=== PATIENT | female | born 1980 | race Caucasian/White ===

== ENCOUNTER 2020-05-22 14:13 | Observation (INO) | payer OTHER ==
[~2020-05-22] VITALS: Ht 162.6 cm; Wt 70.5 kg
--- OUTSIDE RECORDS SUMMARY | ~2020-05-22 | XMS | Encounter Summary ---
Demographics + + + | Address | [address] | | | [place] [address] | + + + | Home Phone | | + + + | Preferred Language | Unknown | + + + | Marital Status | Unknown | + + + | Taoist Affiliation | Unknown | + + + | Race | White | + + + | Ethnic Group | Unknown | + + + Author + + + | Author | Merged With [facility] | | | and [facility] | + + + | Organization | Merged With [facility] | | | and [place] | + + + | Address | Unknown | + + + | Phone | Unavailable | + + + Care Team Providers + +------+ + | Care Wax Cutter Name | Role | Phone | + +------+ + | Venus Bond | PCP | | + +------+ + Encounter Details +--------+ + + + + | Date | Type | Department | Care Team | Description | +--------+ + + + + | 01/18/ | Orders Only | [facility] | Conversion | | | 2012 | | CONVERSION [address] | Transaction, | | | | | [address] | Provider Unknown | | | | | [place], [place] | [phone] | | | | | [address] | | | | | | [phone] | | | +--------+ + + + + Social History + +-------+ +--------+------+ | Tobacco Use | Types | Packs/Day | Years | Date | | | | | Used | | + +-------+ +--------+------+ | Never Assessed | | | | | + +-------+ +--------+------+ + + + | Sex Assigned at | Date Recorded | | | | + + + | Not on file | | + + + documented as of this encounter Plan of Treatment Not on filedocumented as of this encounter Visit Diagnoses Not on filedocumented in this encounter"
--- OUTSIDE RECORDS SUMMARY | ~2020-05-22 | XMS | Encounter Summary ---
Demographics + + + | Address | [address] | | | [place] [address] | + + + | Home Phone | | + + + | Preferred Language | Unknown | + + + | Marital Status | Unknown | + + + | Confucianist Affiliation | Unknown | + + + | Race | White | + + + | Ethnic Group | Unknown | + + + Author + + + | Author | [facility] | | | and [facility] | + + + | Organization | [facility] | | | and [place] | + + + | Address | Unknown | + + + | Phone | Unavailable | + + + Care Team Providers + +------+ + | Care Rn Perinatal Name | Role | Phone | + +------+ + PCP | Unavailable | + +------+ + Encounter Details +--------+ + + + + | Date | Type | Department | Care Team | Description | +--------+ + + + + | 06/16/ | [facility] | [facility] | Dhruv Horan | | | 2000 | Encounter | [facility] | Shlomo [phone] | | | | | AND DELIVERY [address] | (Fax) | | | | | [address] | | | | | | [place], [place] | | | | | | [address] | | | | | | [phone] | | | +--------+ + + + [...]
--- OUTSIDE RECORDS SUMMARY | ~2020-05-22 | XMS | Encounter Summary ---
Demographics + + + | Address | [address] | | | [place] [address] | + + + | Home Phone | | + + + | Preferred Language | Unknown | + + + | Marital Status | | + + + | Taoist Affiliation | CHR | + + + | Race | White | + + + | Ethnic Group | Not or | + + + Author + + + | Author | [facility] | + + + | Organization | [facility] | + + + | Address | Unknown | + + + | Phone | Unavailable | + + + Support + + +---------+ + | Name | Relationship | Address | Phone | + + +---------+ + | Hans Grissom | ECON | Unknown | | + + +---------+ + Care Team Providers + +------+ + | Care Dj Instructor Name | Role | Phone | + +------+ + | Bebeto White MD | PCP | | + +------+ + Encounter Details +--------+ + + + + | Date | Type | Department | Care Team | Description | +--------+ + + + + | 10/15/ | Ancillary | Registration [id number] | [place], | | | 2004 | Registratio | [facility] | [address] | | | | n | Dario Mailcode: [id number] | [place], [place] | | | | | [place], [place] | [address] | | | | | [address] | | | | | | [phone] | | | +--------+ + + + [...] Not on filedocumented as of this encounter Procedures + +--------+ + + + | Procedure Name | Priori | Date/Time | Associated Diagnosis | Comments | | | ty | | | | + +--------+ + + + | ACTH, PLASMA | Routin | 10/15/2004 | | Results for this | | | e | 12:12 PM | | procedure are in the | | | | PST | | results section. | + +--------+ + + + | BASIC METABOLIC SET | Routin | 10/15/2004 | | Results for this | | (NA, K, CL, TCO2, | e | 12:12 PM | | procedure are in the | | BUN, CR, GLU, CA) | | PST | | results section. | + +--------+ + + + | INSULIN GROWTH | Routin | 10/15/2004 | | Results for this | | FACTOR-1, SERUM | e | 12:12 PM | | procedure are in the | | | | PST | | results section. | + +--------+ + + + | FREE T4 | Routin | 10/15/2004 | | Results for this | | | e | 12:12 PM | | procedure are in the | | | | PST | | results section. | + +--------+ + + + | PROLACTIN | Routin | 10/15/2004 | | Results for this | | | e | 12:12 PM | | procedure are in the | | | | PST | | results section. | + +--------+ + + + | TSH | Routin | 10/15/2004 | | Results for this | | | e | 12:12 PM | | procedure are in the | | | | PST | | results section. | + +--------+ + + + | LUTEINIZING HORMONE, | Routin | 10/15/2004 | | Results for this | | SERUM | e | 12:12 PM | | procedure are in the | | | | PST | | results section. | + +--------+ + + + | FSH, SERUM | Routin | 10/15/2004 | | Results for this | | | e | 12:12 PM | | procedure are in the | | | | PST | | results section. | + +--------+ + + + | CORTISOL, SERUM | Routin | 10/15/2004 | | Results for this | | | e | 12:12 PM | | procedure are in the | | | | PST | | results section. | + +--------+ + + + | ACTH, PLASMA | Routin | 10/15/2004 | | Results for this | | | e | 11:57 AM | | procedure are in the | | | | PST | | results section. | + +--------+ + + + | INSULIN GROWTH | Routin | 10/15/2004 | | Results for this | | FACTOR-1, SERUM | e | 11:57 AM | | procedure are in the | | | | PST | | results section. | + +--------+ + + + | FREE T4 | Routin | 10/15/2004 | | Results for this | | | e | 11:57 AM | | procedure are in the | | | | PST | | results section. | + +--------+ + + + | PROLACTIN | Routin | 10/15/2004 | | Results for this | | | e | 11:57 AM | | procedure are in the | | | | PST | | results section. | + +--------+ + + + | TSH | Routin | 10/15/2004 | | Results for this | | | e | 11:57 AM | | procedure are in the | | | | PST | | results section. | + +--------+ + + + | LUTEINIZING HORMONE, | Routin | 10/15/2004 | | Results for this | | SERUM | e | 11:57 AM | | procedure are in the | | | | PST | | results section. | + +--------+ + + + | FSH, SERUM | Routin | 10/15/2004 | | Results for this | | | e | 11:57 AM | | procedure are in the | | | | PST | | results section. | + +--------+ + + + | CORTISOL, SERUM | Routin | 10/15/2004 | | Results for this | | | e | 11:57 AM | | procedure are in the | | | | PST | | results section. | + +--------+ + + + | PROLACTIN | Routin | 10/15/2004 | | Results for this | | | e | 11:55 AM | | procedure are in the | | | | PST | | results section. | + +--------+ + + + documented in this encounter Results TSH-THYROID STIM HORMONE (10/15/2004 12:12 PM PST) + + + + + + | Component | Value | Ref Range | Performed | Pathologist | | | | | At | Signature | + + + + + + | TSH | 0.22 (L)Comment: Test | 0.28 - 5.00 | | | | | performed by [facility] | uIU/ml | | | | | [facility] | | | | | | Laboratories. | | | | + + + + + + + + | Specimen | + + | | + + + + + + + | Performing | Address | City/State/Zipcode | Phone Number | | Organization | | | | + + + + + | [facility] | [address] | [place] [address] | | | LABORATORY | | | | + + + + + PROLACTIN (10/15/2004 12:12 PM PST) + + + + + + | Component | Value | Ref Range | Performed | Pathologist | | | | | At | Signature | + + + + + + | PROLACTIN | 11Comment: Test | 3 - 29 ng/ml | | | | | performed by [facility] | | | | | | [facility] | | | | | | Labaoratory. | | | | + + + + + + + + | Specimen | + + | | + + + + + + + | Performing | Address | City/State/Zipcode | Phone Number | | Organization | | | | + + + + + | [facility] | [address] | [place] [address] | | | LABORATORY | | | | + + + + + LUTEINIZING HORMONE (10/15/2004 12:12 PM PST) + + + + + + | Component | Value | Ref Range | Performed | Pathologist | | | | | At | Signature | + + + + + + | LUTEINIZING | 2Comment: LH | mIU/mL | | | | | Normals | | | | | HORMONE,SER | Males <11 | | | | | UM | Females | | | | | | Follicular | | | | | | <19 | | | | | | Mid-cycle 15-80 | | | | | | Luteal | | | | | | <19 | | | | | | Post-Epifanio. 16-64 | | | | | | Test performed by | | | | | | [facility] | | | | | | [facility]. | | | | + + + + + + + + | Specimen | + + | | + + + + + + + | Performing | Address | City/State/Zipcode | Phone Number | | Organization | | | | + + + + + | [facility] | [address] | [place] [address] | | | LABORATORY | | | | + + + + + IGF-1 (10/15/2004 12:12 PM PST) + + + + + + | Component | Value | Ref Range | Performed | Pathologist | | | | | At | Signature | + + + + + + | IGF-1 | 297Comment: Test | 114 - 492 ng/mL | | | | | performed by [facility] | | | | | | [facility] | | | | | | Laboratories. | | | | + + + + + + + + | Specimen | + + | | + + + + + + + | Performing | Address | City/State/Zipcode | Phone Number | | Organization | | | | + + + + + | [facility] | [address] | [place] [address] | | | LABORATORY | | | | + + + + + CORTISOL, SERUM (10/15/2004 12:12 PM PST) + +-------+ + + + | Component | Value | Ref Range | Performed | Pathologist | | | | | At | Signature | + +-------+ + + + | CORTISOL, | 5 | 5 - 23 ug/dl | | | | TOTAL SERUM | | | | | + +-------+ + + + + + | Specimen | + + | | + + + + + | Narrative | Performed At | + + + | Cortisol Reference Ranges | | | AM Reference Range: 8 - 23 ug/dl | | | PM Reference Range: Less than 10 ug/dl | | + + + + + + + + | Performing | Address | City/State/Zipcode | Phone Number | | Organization | | | | + + + + + | [facility] | [address] | [place] [address] | | | LABORATORY | | | | + + + + + FSH, SERUM (10/15/2004 12:12 PM PST) + + + + + + | Component | Value | Ref Range | Performed | Pathologist | | | | | At | Signature | + + + + + + | FSH,SERUM | 2Comment: | mIU/mL | | | | | FSH Normals: | | | | | | Males: | | | | | | <18 | | | | | | Females | | | | | | Follicular: 2-12 | | | | | | | | | | | | Mid-cycle: 3-33 | | | | | | Luteal: | | | | | | 2-12 | | | | | | Post.epifanio: >20 | | | | | | Test performed by | | | | | | [facility] | | | | | [facility]. | | | | + + + + + + + + | Specimen | + + | | + + + + + + + | Performing | Address | City/State/Zipcode | Phone Number | | Organization | | | | + + + + + | [facility] | [address] | [place] [address] | | | LABORATORY | | | | + + + + + FREE T4, SERUM (10/15/2004 12:12 PM PST) + + + + + + | Component | Value | Ref Range | Performed | Pathologist | | | | | At | Signature | + + + + + + | FREE T4, | 0.9Comment: Test | 0.7 - 1.8 ng/dL | | | | SERUM | performed by [facility] | | | | | | [facility] | | | | | | [facility]. | | | | + + + + + + + + | Specimen | + + | | + + + + + + + | Performing | Address | City/State/Zipcode | Phone Number | | Organization | | | | + + + + + | [facility] | [address] | [place] [address] | | | LABORATORY | | | | + + + + + ACTH (10/15/2004 12:12 PM PST) + + + + + + | Component | Value | Ref Range | Performed | Pathologist | | | | | At | Signature | + + + + + + | ACTH,PLASMA | 9Comment: Test | 9 - 52 pg/mL | | | | | performed by [facility] | | | | | | [facility] | | | | | | Laboratories. | | | | + + + + + + + + | Specimen | + + | | + + + + + + + | Performing | Address | City/State/Zipcode | Phone Number | | Organization | | | | + + + + + | [facility] | [address] | [place] [address] | | | LABORATORY | | | | + + + + + BASIC METABOLIC SET (10/15/2004 12:12 PM PST) + +-------+ + + + | Component | Value | Ref Range | Performed | Pathologist | | | | | At | Signature | + +-------+ + + + | GLUCOSE, | 89 | 65 - 110 mg/dL | [facility] | | | PLASMA | | | DEPARTMENT | | | (LAB) | | | OF | | | | | | PATHOLOGY | | + +-------+ + + + | BUN, PLASMA | 8 | 6 - 20 mg/dL | [facility] | | | (LAB) | | | DEPARTMENT | | | | | | OF | | | | | | PATHOLOGY | | + +-------+ + + + | CREATININE | 0.8 | 0.6 - 1.1 mg/dL | [facility] | | | PLASMA | | | DEPARTMENT | | | (LAB) | | | OF | | | | | | PATHOLOGY | | + +-------+ + + + | SODIUM, | 139 | 136 - 145 | [facility] | | | PLASMA | | mmol/L | DEPARTMENT | | | (LAB) | | | OF | | | | | | PATHOLOGY | | + +-------+ + + + | POTASSIUM, | 3.9 | 3.5 - 5.1 | [facility] | | | PLASMA | | mmol/L | DEPARTMENT | | | (LAB) | | | OF | | | | | | PATHOLOGY | | + +-------+ + + + | CHLORIDE, | 104 | 98 - 107 mmol/L | [facility] | | | PLASMA | | | DEPARTMENT | | | (LAB) | | | OF | | | | | | PATHOLOGY | | + +-------+ + + + | TOTAL CO2, | 27 | 23 - 29 mmol/L | [facility] | | | PLASMA | | | DEPARTMENT | | | (LAB) | | | OF | | | | | | PATHOLOGY | | + +-------+ + + + | CALCIUM, | 9.7 | 8.5 - 10.5 | [facility] | | | PLASMA | | mg/dL | DEPARTMENT | | | (LAB) | | | OF | | | | | | PATHOLOGY | | + +-------+ + + + + + | Specimen | + + | | + + + + + + + | Performing | Address | City/State/Zipcode | Phone Number | | Organization | | | | + + + + + | [facility] DEPARTMENT OF | [address] | [place] [address] | | | PATHOLOGY | [address] | | | + + + + + | [facility] DEPARTMENT OF | [address] | [place] [address] | | | PATHOLOGY | [address] | | | + + + + + FSH, SERUM (10/15/2004 11:57 AM PST) + + + + + + | Component | Value | Ref Range | Performed | Pathologist | | | | | At | Signature | + + + + + + | FSH,SERUM | See cmnt | mIU/mL | | | + + + + + + + + | Specimen | + + | | + + + + + | Narrative | Performed At | + + + | Patient unavailable, specimen not obtained | | + + + + + + + + | Performing | Address | City/State/Zipcode | Phone Number | | Organization | | | | + + + + + | [facility] | [address] | [place] [address] | | | LABORATORY | | | | + + + + + FREE T4, SERUM (10/15/2004 11:57 AM PST) + + + + + + | Component | Value | Ref Range | Performed | Pathologist | | | | | At | Signature | + + + + + + | FREE T4, | See cmnt | ng/dL | | | | SERUM | | | | | + + + + + + + + | Specimen | + + | | + + + + + | Narrative | Performed At | + + + | Patient unavailable, specimen not obtained | | + + + + + + + + | Performing | Address | City/State/Zipcode | Phone Number | | Organization | | | | + + + + + | [facility] | [address] | [place] [address] | | | LABORATORY | | | | + + + + + CORTISOL, SERUM (10/15/2004 11:57 AM PST) + + + + + + | Component | Value | Ref Range | Performed | Pathologist | | | | | At | Signature | + + + + + + | CORTISOL, | See cmnt | ug/dl | | | | TOTAL SERUM | | | | | + + + + + + | TIME | See cmnt | Hrs:mins | | | + + + + + + | SITE | See cmnt | | | | + + + + + + + + | Specimen | + + | | + + + + + | Narrative | Performed At | + + + | Patient unavailable, specimen not obtained | | + + + + + + + + | Performing | Address | City/State/Zipcode | Phone Number | | Organization | | | | + + + + + | [facility] | [address] | [place] [address] | | | LABORATORY | | | | + + + + + IGF-1 (10/15/2004 11:57 AM PST) + + + + + + | Component | Value | Ref Range | Performed | Pathologist | | | | | At | Signature | + + + + + + | IGF-1 | See cmnt | ng/mL | | | + + + + + + + + | Specimen | + + | | + + + + + | Narrative | Performed At | + + + | Patient unavailable, specimen not obtained | | + + + + + + + + | Performing | Address | City/State/Zipcode | Phone Number | | Organization | | | | + + + + + | [facility] | [address] | [place] [address] | | | LABORATORY | | | | + + + + + ACTH (10/15/2004 11:57 AM PST) + + + + + + | Component | Value | Ref Range | Performed | Pathologist | | | | | At | Signature | + + + + + + | ACTH,PLASMA | See cmnt | pg/mL | | | + + + + + + | TIME | See cmnt | Hrs:mins | | | + + + + + + | SITE | See cmnt | | | | + + + + + + + + | Specimen | + + | | + + + + + | Narrative | Performed At | + + + | Patient unavailable, specimen not obtained | | + + + + + + + + | Performing | Address | City/State/Zipcode | Phone Number | | Organization | | | | + + + + + | [facility] | [address] | [place] [address] | | | LABORATORY | | | | + + + + + TSH-THYROID STIM HORMONE (10/15/2004 11:57 AM PST) + + + + + + | Component | Value | Ref Range | Performed | Pathologist | | | | | At | Signature | + + + + + + | TSH | See cmnt | uIU/ml | | | + + + + + + + + | Specimen | + + | | + + + + + | Narrative | Performed At | + + + | Patient unavailable, specimen not obtained | | + + + + + + + + | Performing | Address | City/State/Zipcode | Phone Number | | Organization | | | | + + + + + | [facility] | [address] | [place] [address] | | | LABORATORY | | | | + + + + + PROLACTIN (10/15/2004 11:57 AM PST) + + + + + + | Component | Value | Ref Range | Performed | Pathologist | | | | | At | Signature | + + + + + + | PROLACTIN | See cmnt | ng/ml | | | + + + + + + + + | Specimen | + + | | + + + + + | Narrative | Performed At | + + + | Patient unavailable, specimen not obtained | | + + + + + + + + | Performing | Address | City/State/Zipcode | Phone Number | | Organization | | | | + + + + + | [facility] | [address] | [place] [address] | | | LABORATORY | | | | + + + + + LUTEINIZING HORMONE (10/15/2004 11:57 AM PST) + + + + + + | Component | Value | Ref Range | Performed | Pathologist | | | | | At | Signature | + + + + + + | LUTEINIZING | See cmnt | mIU/mL | | | | | | | | | | HORMONE,SER | | | | | | [facility] | | | | | + + + + + + + + | Specimen | + + | | + + + + + | Narrative | Performed At | + + + | Patient unavailable, specimen not obtained | | + + + + + + + + | Performing | Address | City/State/Zipcode | Phone Number | | Organization | | | | + + + + + | [facility] | [address] | [place] [address] | | | LABORATORY | | | | + + + + + PROLACTIN (10/15/2004 11:55 AM PST) + + + + + + | Component | Value | Ref Range | Performed | Pathologist | | | | | At | Signature | + + + + + + | PROLACTIN | 11Comment: Test | 3 - 29 ng/ml | | | | | performed by [facility] | | | | | | [facility] | | | | | | Labaoratory. | | | | + + + + + + + + | Specimen | + + | | + + + + + + + | Performing | Address | City/State/Zipcode | Phone Number | | Organization | | | | + + + + + | [facility] | [address] | [place] [address] | | | LABORATORY | | | | + + + + + documented in this encounter Visit Diagnoses Not on filedocumented in this encounter"
--- OUTSIDE RECORDS SUMMARY | ~2020-05-22 | XMS | Encounter Summary ---
Demographics + + + | Address | [address] | | | [place] [address] | + + + | Home Phone | | + + + | Preferred Language | Unknown | + + + | Marital Status | | + + + | Roman Catholic Affiliation | CHR | + + + | Race | White | + + + | Ethnic Group | Not or | + + + Author + + + | Author | [facility] | + + + | Organization | [facility] | + + + | Address | Unknown | + + + | Phone | Unavailable | + + + Support + + +---------+ + | Name | Relationship | Address | Phone | + + +---------+ + | Hans Grissom | ECON | Unknown | | + + +---------+ + Care Team Providers + +------+ + | Care Human Factors Engineer Name | Role | Phone | + +------+ + | Bebeto White MD | PCP | | + +------+ + Reason for Visit AUTH/CERT +--------+--------+ + + + + | Status | Reason | Specialty | Diagnoses / | Referred By | Referred To | | | | | Procedures | Contact | Contact | +--------+--------+ + + + + | Closed | | Adult Acute | | | Kpv 10k | | | | Care | | | Nsrg/Neur/Ot | | | | | | | [address] | | | | | | | [address] | | | | | | | [id number] | | | | | | | [facility] | | | | | | | [place], | | | | | | | [place] [address] | | | | | | | Phone: | | | | | | | [phone] | +--------+--------+ + + + + Encounter Details +--------+ + + + + | Date | Type | Department | Care Team | Description | +--------+ + + + + | 01/14/ | Hospital | [facility] [address] | Ashleigh Negrete, | | | 2010 - | Encounter | [address] | [address] [facility] | | | | | [id number] [facility] | [address] | | | 01/15/ | | [facility], | [place], [place] | | | 2010 | | [place] [address] | [address] | | | | | [phone] | [phone] | | | | | | | | +--------+ + + + + Social History + +-------+ +--------+------+ | Tobacco Use | Types | Packs/Day | Years | Date | | | | | Used | | + +-------+ +--------+------+ | Never Smoker | | | | | + +-------+ +--------+------+ + +---+---+---+ | Smokeless Tobacco: | | | | | Never Used | | | | + +---+---+---+ + + +---------+ + | Alcohol Use | Drinks/Week | oz/Week | Comments | + + +---------+ + | No | | | | + + +---------+ + + + + | Sex Assigned at | Date Recorded | | | | + + + | Not on file | | + + + documented as of this encounter Last Filed Vital Signs + + + + + | Vital Sign | Reading | Time Taken | Comments | + + + + + | Blood Pressure | 140/86 | 01/15/2011 11:14 AM | | | | | PDT | | + + + + + | Pulse | 88 | 01/15/2011 11:14 AM | | | | | PDT | | + + + + + | Temperature | 37 C (98.6 F) | 01/15/2011 11:14 AM | | | | | PDT | | + + + + + | Respiratory Rate | 16 | 01/15/2011 11:14 AM | | | | | PDT | | + + + + + | Oxygen Saturation | 98% | 01/15/2011 11:14 AM | | | | | PDT | | + + + + + | Inhaled Oxygen | - | - | | | Concentration | | | | + + + + + | Weight | 95.3 kg (210 lb) | 01/14/2011 1:00 PM | | | | | PDT | | + + + + + | Height | 162.6 cm (5' 4") | 01/14/2011 1:00 PM | | | | | PDT | | + + + + + | Body Mass Index | 36.05 | 01/14/2011 1:00 PM | | | | | PDT | | + + + + + documented in this encounter Discharge Summaries Walt Massey DDS, MD - 01/15/2011 12:19 PM PDTFormatting of this note might be diffe rent from the original. HEAD AND NECK SURGERY INPATIENT PROVIDER DISCHARGE SUMMARY & INSTRUCTIONS Patient: Shellie Grissom Admission Date: 01/14/2011 Discharge Date: 01/15/2011 Attending Physician: Dr. 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 Reason For Admission: Post operative pain and nausea control Hypocalcemia monitoring Brief Hospital Course Ms. Grissom is a 30 yr woman who was admitted for post operative care related to her thyroid ectomy for a toxic goiter. She did well and her pepito drain was removed on hospital day 2 . Her pain and nausea were controlled at the time of discharge. Her post operative PTH is 20. Morning corrected calcium is 9. Current Discharge Medication List START taking these medications HYDROcodone-acetaminophen 5-500 mg Oral Tablet Take 1-2 Tabs by mouth every four hours as needed for moderate pain. Not to exceed 8 table ts per any 24 hour period. (Not to exceed 4000 mg of acetaminophen from all products per 24 hour period.) Qty: 45 Tab Refills: 1 senna-docusate 8.6-50 mg Oral Tablet Take 1 Tab by mouth twice daily as needed. Qty: 30 Tab Refills: 3 CONTINUE these medications which have NOT CHANGED LORazepam 2 mg Oral Tablet Take 2 mg by mouth every four hours as needed. multivitamin Oral Tablet Take 1 Tab by mouth once daily. Wound Care DERMABOND SKIN ADHESIVE:You will have a purple/clear skin adhesive called Dermabond coverin g your incision. Do not scratch, rub, or pick at the adhesive - if you do the film may bec ome loose before the wound is fully healed. Do not go swimming or soak in water.Showering is okay - gently blot the wound dry with a soft towel afterward. Avoid prolonged exposure to sunlight or tanning lamps. The Dermabond will fall off on its own within approximately 2 weeks.DO NOT apply any ointments to the area until after the Dermabond has fallen off. Diet Regular Regular diet- There are no restrictions to your diet. You may eat or drink whatever you pr efer, though healthy food choices are recommended. Activity No activity restrictions Destination: Destination: Home Condition on Discharge Good Discharge Follow Up For an appointment in Otolaryngology (Head & Neck Surgery) with Dr. Negreet, please call: . You should be seen within 2 about weeks from surgery. You need to see your didactic instructor near your home with lab draws next week. Also, you ne ed to have a blood drawn to look at the calcium level tomorrow (01/16/11). Other Discharge Orders and Instructions For Extreme Emergencies: Call [phone] Special Instructions: Do not drink alcohol while taking narcotic pain medication Do not drive or operate heavy machinery while on pain medications HOME MEDICATIONS: Remember to start taking all your home medications as you were before this hospital stay. PAIN: Keeping pain under control will help you get better faster; remember, it is harder to relie ve pain once it starts. You may take the pain medication you were prescribed regularly for the first 24 hours. STOP taking the pain medication if: Your pain lessens and you don't feel you need it You have nausea, headache, severe constipation, or other intolerable side effects. Take the prescription pain medication ONLY as you feel necessary. You may switch to acetami nophen (Tylenol) immediately after surgery, and you may also begin taking ibuprofen 3 days f ollowing surgery. You may apply ice intermittently to the affected area for the first 24-48 hours; a bag of f rozen peas works very well to form around the area. CONSTIPATION: Taking prescription pain medication (Vicodin, Oxycodone, Dilaudid, Hydrocodone) may cause c onstipation; drink fluids, increase fruits and vegetables, and walk. Take the stool softener if you were prescribed one as you need it. You should also take an qvwc-mgj-lnkylij stool softener called Colace (Docusate sodium) or Miralax (polyethylene glycol). Follow the directions on the label. Call the Resident on-call at [phone] if you have any of the following urgent issues: Difficulty breathing or unusual shortness of breath Excessive bleeding Increased drainage from your wounds Fever greater than 101.5 degrees, chills, increased pain that is not relieved by pain medic ations Persistent nausea or vomiting For all other questions, non-urgent issues, or prescription refills, between 8:00am to 4:0 0pm, call the Head and Ne[facility] Surgery Clinic at . Vitals on Discharge: Ht 162.6 cm (5' 4")( < 3 %ile), Wt 95.255 kg (210 lbs)( < 3 %ile), BP 140/86, Pulse 88, Temperature 37 C (98.6 F), RR 16, SpO2 98%, BMI 36.05 kg/(m^2). Physical Exam: Gen - Alert, NAD HEENT - Incision is clean, dry and intact. Pepito is removed, minimal serous drainage is noted. No masses or hematoma. Voice is strong. No Chovstek's. Chest - Non-labored breathing on room air Extremities - well perfused Outstanding labs/studies: You will need a blood draw tomorrow for calcium near your house. Lab to call [facility] to [facility] at home. Final Surgical Pathology is pending at the time of discharge Discharged dispostion: Discharged to home. Date/Time Completed: 01/15/2011, 12:19 PM WALT MASSEY DDS, Surgery documented in this e ncounter Discharge Instructions Instructions Nusrat Vázquez RN - 01/15/2011INPATIENT NURSE ORDER FOR DISCHARGE AND INTERDISCIPLINARY INSTRUCTIONS DISCHARGE DATE: 01/15/2011 PATIENT EDUCATION: Patient given the following printed education materials Wound care and medication. Review with patient/family: Understanding of disease/injury/surgical repair Yes Signs/symptoms that they should report Yes Understanding of medications and side effects Yes Activity and diet instructions Yes Follow-up appointments Yes Any concerns/fears N/A Smoking Cessation Counseling/Information was given on admission. Additional Instructions: (ex: daily weights, wound care, tube feeding, trach care, CBG saige toring etc.) Personal Effects/Medications: Sent home with patient Discharged Via: Ambulatory Mode of Transportation: Car Accompanied by: Family/Responsible [employer] Company Name: (when applicable) Phone #: Discharge Nurse: Uy Vázquez Date: 01/15/2011 Discharge Time: 12:29 PM AttachmentsThe following attachments cannot be sent through Care Everywhere.Medication Advi sor 2010.3: Hydrocodone/Acetaminophen, OralFormerly [facility] 2010.3: Wound Closure and Wo und CareFormerly [facility] Advisor 2010.3: Hypocalcemiadocumented in this encounter Medications at Time of Discharge + + + +---------+ + + | Medication | Sig | Dispensed | Refills | Start | End Date | | | | | | Date | | + + + +---------+ + + | levothyroxine 150 | Take 1 Tab by mouth | 30 Tab | 3 | 01/16/20 | | | mcg Oral Tablet | once daily. | | | 11 | | + + + +---------+ + + | multivitamin Oral | Take 1 Tab by mouth | | 0 | | | | Tablet | once daily. | | | | | + + + +---------+ + + documented as of this encounter Progress Notes Jonah Elliott Md - 01/14/2011 8:51 PM PDTFormatting of this note might be different fr om the original. Otolaryngology Progress Note Date:01/14/2011 Hospital Day:0 Author; JONAH ELLIOTT MD Attending Physician: Ashleigh Negrete MD Interval Hx: doing well, some pain appropriate for postop dextrose 5%-lactated ringers IV, , Intravenous, CONTINUOUS HYDROcodone-acetaminophen (aka VICODIN) 5-500 mg 1-2 Tab, 1-2 Tab, Oral, Q4H PRN HYDROmorphone (aka DILAUDID) injection 0.2-0.6 mg, 0.2-0.6 mg, Intravenous, Q2H PRN levothyroxine tablet 150 mcg, 150 mcg, Oral, DAILY LORazepam (aka ATIVAN) tablet 2 mg, 2 mg, Oral, Q4H PRN Physical Exam: Last Vitals: BP 147/90 | Pulse 107 | Temp 36.4 C (97.5 F) | RR 16 | Ht 1.626 m (5' 4") | Wt 95.255 kg (210 lb) | SpO2 99% | BMI 36.05 kg/(m^2) 24 Hour Vital Min/Max: Systolic (24hrs), Min:141 mmHg, Max:166 mmHg Diastolic (24hrs), Min:71 mmHg, Max:107 mmHg Pulse Av.5 Min: 105 Max: 128 Temp Av.7 C (98.1 F) Min: 36.3 C (97.3 F) Max: 37.3 C (99.1 F) Resp Av.6 Min: 14 Max: 16 SpO2 Av.1 % Min: 96 % Max: 100 % Intake/Output Summary (Last 24 hours) at 01/14/112050 Last data filed at 01/14/111999 Gross per 24 hour Intake 2100 ml Output 0 ml Net 2100 ml General Appearance: no distress Breathing comfortably Incision clean/dry/intact, no erythema or hematoma. Pepito drain in place. CN II-XII intact and symmetric. Voice hoarse Assessment and Plan: 30 y.o.female s/p total thyroidectomy -doing well overall -continue pain control -ADAT -monitor hoarseness, at this point likely due to edema from ET tube Jonah Elliott MD PhD [facility] Dept. of Otolaryngology documented in this e ncounter H&P Notes Ashleigh Negrete MD - 01/17/2011 10:00 AM PDT documented in this encounter Procedure Notes Ashleigh Negrtee MD - 01/17/2011 10:00 AM PDT ther, Faculty - 0 01/15/2011 3:54 PM PDTAssociated Order(s): ANESTHESIA/SEDATION; ANESTHESIA/SEDATION Ashleigh Underwood MD - 0 01/14/2011 4:23 PM PDTAssociated Order(s): ANESTHESIA/SEDATION; ANESTHESIA/SEDATION Ashleigh Underwood MD - 01/14/2011 4:12 PM PDTAssociated Order(s): PROCEDURE NOTEOPERATIVE REPORT Patient Name: Shellie Grissom Date of Surgery: 01/14/11 Attending Surgeon: Dr. Negrete Music Therapist [employer](s): Amy Lira Preoperative Diagnosis(es): Toxic goiter, hyperthyroidism Postoperative Diagnosis(es): Same as preop diagnosis Procedures Performed: 1. Total thyroidectomy. 2. Continuous recurrent laryngeal nerve EMG monitoring (90 minutes) Complications:None. Estimated Blood Loss: 10 cc. Post-Op PTH: 20 Specimens: Total thyroid Procedure: The patient was intubated with a Xomed endotracheal tube for recurrent laryngeal nerve whic h was used continuously throughout the entire cervical procedure. The neck was prepped, scr ubbed, and draped with sterile towels. A low lying collar incision was made at the level of the sternoclavicular joints and extended laterally along the neck crease on each. Skin flap was elevated superiorly. The flaps were also elevated inferiorly down to the sternal notch. We started the thyroidectomy part first. The strap muscles were along the midlin e and dissected off the left thyroid lobe with a [place] elevator. The inferior thyroid veins were cauterized and divided with the harmonic scalpel on the thyroid capsule. The inferior parathyroid gland was identified, dissected off the thyroid capsule, and preserved. The mi ddle thyroid vein was then divided. Dissection continued along the superior pole where the distal end branches of the superior thyroid artery and veins were isolated and divided with the harmonic scalpel on the thyroid capsule. The thyroid lobe was then gently retracted, a nd the tracheoesophageal groove was exposed near the lower border of the cricothyroid muscle . The superior parathyroid gland was identified, dissected off, and preserved. Next, the r ecurrent laryngeal nerve was then identified and confirmed with the nerve stimulator probe s et at 0.5 mA. The nerve was then dissected inferiorly and laterally and then breakup superio rly and protected as the rest of the thyroid lobe was then dissected off the lateral trachea l wall, dividing the Villegas ligament. The rest of the thyroid lobe was then dissected off th e anterior tracheal wall including a long pyramidal lobe. The recurrent laryngeal nerve was re-stimulated with 0.5 milliamperes stimulus and we obtained a large motor unit potential. Attention was directed to the contralateral lobe which was removed in the same fashion, pre serving the inferior parathyroid gland and the superior parathyroid gland as well as the rec urrent laryngeal nerve. The entire thyroid gland was removed and labelled total thyroid. T he recurrent laryngeal nerve was re- stimulated at 0,5 milliamperes stimulus and a large mot or unit potential was obtained. The wound was irrigated copiously and inspected for hemostasis. The parathyroid glands that remained were re-examined and all 4 appeared viable. [place] drain was placed. After maykel ng sure the would was dry, the straps were closed with a running 4-0 polysorb, the skin was closed with running 4-0 polysorb platysmal layer closure and 4-0 Monocryl subcuticular closu re. Dermabond was applied over the incision. Sponge and needle counts were correct. Labelling of specimens removed were confirmed with nursing. The patient left the operating room extubated in stable condition. Dr. Negrete was present for the entire case. SANDOVAL GREGORY MD Attending Attestation: I was physically present for the entire procedure and agree with the resident's note Ashleigh Negrete M.D. Other, Faculty - 01/13/2011 3:14 PM PDT documented in this encou nter Miscellaneous Notes Scan - Other, Faculty - 11/16/2014 4:30 PM PDTElectronically signed by Faculty Other at 4:30 PM Ashleigh Solorzano MD - 01/17/2011 10:00 AM PDT Kenia Solorzano MD - 01/17/2011 10:00 AM PDT Kenia Solorzano MD - 01/17/2011 10:00 AM PDT Kenia Solorzano MD - 01/17/2011 10:00 AM PDT lan of Dotty Calles RN - 01/15/2011 12:34 PM PDTProblem: Case Management Goals Goal: Discharge Needs Met Patient admitted to [facility] s/p total thyroidectomy. Patient lives with in [place], [place], has [facility] insurance. No CM needs anticipated, will continue to follow until discharge. Annika Grace RN, BSN, ENT/Neuro Chief Power Dispatcher #[id number] lan of Nusrat Gillespie RN - 01/15/2011 10:59 AM PDTProblem: Pain, Acute (Adult) Goal: Acute Pain: Acceptable Pain Control/Comfort Level Interventions: Assess pain level every 2 hrs Administer pain med as ordered Encourage mobility Maintain environmental modification lan of Care - Maximilian Palomares R - 01/15/2011 6:13 AM PDTProblem: General Plan of Care (Adult) Intervention: NPEOC Acute Goals: No falls/injuries this NOC Adequate rest. Pain managed to pt comfort. Interventions: Environment free from clutter. Call light within reach. Discuss ambulation safety Encourage pt to rest. Discuss plan for pain. Vicodin x1 tab per pt request. No notes of Plan of Care type on file. Interventions that worked/didn't work: continue cares. Promote pt independence. My recommendations forward:Enforce pt safety. Patient Stability:Moderately Stable [facility] Maximilian Al R - 01/15/2011 6:00 AM PDTNursing Handoff Report Primary focus of stay: Total thyroidectomy. Pertinent physical findings: neck dissection, dsg on the anterior neck, pepito under dress ing. Hoarseness and sore throat. IVF D5LR 100ml/hr. Pt reporting feeling more hungry. Orders to follow up on: . ADAT. 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 Last pain assessment/reassessment: Vicodin for pain. 0430am x1 tab. Psych/social issues: cooperative, at the BS, participating in pt's care. Last patient visit (i.e. Falls/Activity/Comfort/Environment/Toileting/Skin): calls appropri ately when help needed, Anticipated or pending procedures: Electronically signed by Maximilian Palomares at 1 6:04 AM PDTJackie - Bella Valentin RN - 01/14/2011 9:54 PM PDTNursing Handoff Report Primary focus of stay: Total thyroidectomy. Pertinent physical findings: neck dissection, dsg on the anterior neck,pepito under per [facility] RN report but unable to see covered with dsg, IVF Orders to follow up on: Ca draw in the morning. Last pain assessment/reassessment: Vicodin for pain. Psych/social issues: cooperative, at the BS, participating in pt's care. Last patient visit (i.e. Falls/Activity/Comfort/Environment/Toileting/Skin): calls appropri ately when help needed, Anticipated or pending procedures: Nevaeh Caruso RN - 01/14/2011 5:26 PM PDTSurgical procedure Thyroidectomy Length of procedure: Time Entered Room 1359 Time Left Room 1620 Surgical diagnosis:Multinodular Goiter Medical history pertinent to surgery: healthy Major deviations/events or pertinent findings of perioperative stay: none Surgeon:Caden Type(s) of anesthesia:GA OR positioning: supine N/V status: none now, phenergan and compazine given Last void: 1315 Last pain medication given: Hydromorphone push (mg): 0.2 mg (01/14/11 1715) Pain medication totals: 0.8mg dilaudid Additional pain medication information: none Mental health/psychosocial: calm and cooperative Language/sensory issues: none Family: Family/Home Transport: In [facility] Waiting Room (01/14/11 124) Contact Name: Hans Grissom (01/14/11 754) Contact Number: [phone] (01/14/11 6206) Family contacted: Yes, with patient Anticipated post-op needs/devices/follow up: pepito in neck For fluid replacement, EBL, and antibiotics administered in OR: SEE ANESTHESIA RECORDElectr onically signed by Emely Ahuja RN at 01/14/2011 5:29 PM Ashleigh Solorzano MD - 01/14/2011 1:43 PM PDT documented in this encounter Plan of Treatment Not on filedocumented as of this encounter Procedures + +--------+ + + + | Procedure Name | Priori | Date/Time | Associated Diagnosis | Comments | | | ty | | | | + +--------+ + + + | PROCEDURE NOTE | Routin | 09/07/2015 | | Results for this | | | e | 6:29 AM | | procedure are in the | | | | PST | | results section. | + +--------+ + + + | ALBUMIN, PLASMA | Routin | 01/15/2011 | | Results for this | | | e | 7:13 AM | | procedure are in the | | | | PDT | | results section. | + +--------+ + + + | CALCIUM, PLASMA | Routin | 01/15/2011 | | Results for this | | | e | 7:13 AM | | procedure are in the | | | | PDT | | results section. | + +--------+ + + + | PTH - OPERATIVE | Routin | 01/14/2011 | | Results for this | | | e | 4:10 PM | | procedure are in the | | | | PDT | | results section. | + +--------+ + + + | ANESTHESIA/SEDATION | | 01/14/2011 | | Results for this | | | | 12:00 AM | | procedure are in the | | | | PDT | | results section. | + +--------+ + + + | ANESTHESIA/SEDATION | | 01/14/2011 | | Results for this | | | | 12:00 AM | | procedure are in the | | | | PDT | | results section. | + +--------+ + + + | SURGICAL PATHOLOGY | Routin | 01/14/2011 | | Results for this | | | e | | | procedure are in the | | | | | | results section. | + +--------+ + + + documented in this encounter Results PROCEDURE NOTE (09/07/2015 6:29 AM PST)ALBUMIN, PLASMA (01/15/2011 7:13 AM PDT) + +---------+ + + + | Component | Value | Ref Range | Performed | Pathologist | | | | | At | Signature | + +---------+ + + + | ALBUMIN, | 2.3 (L) | 3.5 - 4.7 g/dL | [facility] | | | PLASMA | | | DEPARTMENT | | | (LAB) | | | OF | | | | | | PATHOLOGY | | + +---------+ + + + + + | Specimen | + + | | + + + + + + + | Performing | Address | City/State/Zipcode | Phone Number | | Organization | | | | + + + + + | [facility] DEPARTMENT | [address] | [place] [address] | | | PATHOLOGY | [address] | | | + + + + + CALCIUM, PLASMA (01/15/2011 7:13 AM PDT) + +---------+ + + + | Component | Value | Ref Range | Performed | Pathologist | | | | | At | Signature | + +---------+ + + + | CALCIUM, | 7.6 (L) | 8.6 - 10.2 | [facility] | | | PLASMA | | mg/dL | DEPARTMENT | | | (LAB) | | | OF | | | | | | PATHOLOGY | | + +---------+ + + + + + | Specimen | + + | Blood - Blood | + + + + + + + | Performing | Address | City/State/Zipcode | Phone Number | | Organization | | | | + + + + + | [facility] | [address] | [place] [address] | | | PATHOLOGY | [address] | | | + + + + + PTH - OPERATIVE (01/14/2011 4:10 PM PDT) + + + + + + | Component | Value | Ref Range | Performed | Pathologist | | | | | At | Signature | + + + + + + | PTH - | 20.0Comment: Test | pg/mL | CLINICAL | | | OPERATIVE | performed by [facility] | | RESEARCH | | | | Clinical Research | | [facility] | | | | Laboratory | | | | + + + + + + | TIME - PTH | 16:10 | Hrs:mins | CLINICAL | | | | | | RESEARCH | | | | | | [facility]ENTER[facility] | | + + + + + + + + | Specimen | + + | | + + + + + + + | Performing | Address | City/State/Zipcode | Phone Number | | Organization | | | | + + + + + | [facility] | [address] | [place], [place] | | | [facility] | [address] | | | + + + + + | CLINICAL RESEARCH | [address] | [place], [place] | | | [facility] | [address] | | | + + + + + ANESTHESIA/SEDATION (01/14/2011 12:00 AM PDT) + + + | Narrative | Performed At | + + + | | | + + + + + | Procedure Note | + + | Lamar, Faculty - 01/15/2011 3:54 PM PDT | | | + + ANESTHESIA/SEDATION (01/14/2011 12:00 AM PDT) + + + | Narrative | Performed At | + + + | | | + + + + + | Procedure Note | + + | Ashleigh Negrete MD - 01/14/2011 4:23 PM PDT | | | + + SURGICAL PATHOLOGY (01/14/2011) + + + + + + | Component | Value | Ref Range | Performed | Pathologist | | | | | At | Signature | + + + + + + | SURGICAL | SOURCE OF SPECIMEN:A | | [facility] | | | PATHOLOGY | Total thyroid | | DEPARTMENT | | | | Final Pathologic | | OF | | | | Diagnosis:Thyroid, total | | PATHOLOGY | | | | thyroidectomy: - | | | | | | Nodular thyroid | | | | | | hyperplasia Case | | | | | | seen by:Сергей Duke, | | | | | | M.D., Ph.D./Surgical | | | | | | Pathology FellowS. | | | | | | Arnold Cochran, | | | | | | Mara/PathologistT: | | | | | | 1/rdl Clinical | | | | | | History:The patient is a | | | | | | 30-year-old female with | | | | | | multinodular goiter. | | | | | | Gross | | | | | | Description:Received is | | | | | | 1 specimen fresh in a | | | | | | container labeled with | | | | | | the patient | | | | | | name(initials SW) and | | | | | | "total thyroid, stitch | | | | | | ryan right." Received | | | | | | is a 15gram, 5.5 (ML) x | | | | | | 4.2 (SI) x 1.5 (AP) cm | | | | | | total thyroidectomy with | | | | | | a stitchmarking right. | | | | | | The exterior of the | | | | | | thyroid is smooth to | | | | | | focally roughenedand | | | | | | cauterized red-purple. | | | | | | The right lobe | | | | | | measures 4.2 (SI) x 2.2 | | | | | | (ML) x1.5 (AP) cm, the | | | | | | left lobe measures 4.2 | | | | | | (SI) x 1.8 (ML) x 1.4 | | | | | | (AP) cm,isthmus measures | | | | | | 4.2 (SI) x 1.3 (ML) | | | | | | x0.5 (AP) cm, and | | | | | | attached pyramidal lobe | | | | | | measures 1.8 x 0.8 x 0.2 | | | | | | cm. Thespecimen is | | | | | | inked as follows: | | | | | | Posterior equals blue, | | | | | | anterior right | | | | | | equalsblack, anterior | | | | | | left equals green, | | | | | | anterior isthmus and | | | | | | pyramidal lobeequals | | | | | | orange. The specimen | | | | | | is then serially | | | | | | sectioned revealing | | | | | | nodulesranging in size | | | | | | from 0.5 cm in greatest | | | | | | dimension up to 2 x 1.5 | | | | | | x 1.2 cm.The nodules are | | | | | | soft to slightly | | | | | | gelatinous, wilkins-red with | | | | | | multiple emptycystic | | | | | | spaces. A portion of | | | | | | the nodule in the left | | | | | | lower pole is | | | | | | focallycalcified. The | | | | | | remaining thyroid | | | | | | parenchyma is | | | | | | red-purple. | | | | | | Representativesections | | | | | | of the specimen are | | | | | | submitted. 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 | | | | | | Rendering Diagnostician: | | | | | | Corbin Cohcran | | | | | | MaraPathologistElectroni | | | | | | manny Signed 01/17/2011 | | | | | | 12:01PM | | | | + + + + + + + + | Specimen | + + | | + + + + + + + | Performing | Address | City/State/Zipcode | Phone Number | | Organization | | | | + + + + + | 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 | + + documented in this encounter Administered Medications + +--------+ + +------+------+ | Medication Order | MAR | Action | Dose | Rate | Site | | | Action | Date | | | | + +--------+ + +------+------+ | calcium carbonate chewable (aka | Given | 01/16/20 | 1,000 mg | | | | TUMS) tablet 1,000 mg 1,000 mg, | | 11 10:45 | | | | | oral, THREE TIMES DAILY, First | | AM PDT | | | | | dose on Thu01/15/11 at 0945, | | | | | | | Until Discontinued | | | | | | + +--------+ + +------+------+ +---+---+ | | | +---+---+ + +---------+ +---+-------+---+ | dextrose 5%-lactated ringers IV | New Bag | 01/16/20 | | 100 | | | intravenous, CONTINUOUS, | | 11 4:40 | | mL/hr | | | Starting Thu01/14/11 at 1700, | | AM PDT | | | | | Until Thu01/15/11 at 0634 | | | | | | + +---------+ +---+-------+---+ +---------+ +---+-------+---+ | New Bag | 01/15/20 | | 100 | | | | 11 6:41 | | mL/hr | | | | PM PDT | | | | +---------+ +---+-------+---+ +---+---+ | | | +---+---+ + +-------+ + +---+---+ | HYDROcodone-acetaminophen (aka | Given | 01/16/20 | 1 tablet | | | | VICODIN) 5-500 mg 1-2 Tab 1-2 | | 11 12:20 | | | | | tablet, oral, EVERY 4 HOURS | | PM PDT | | | | | NEEDED, Starting Thu01/14/11 at | | | | | | | 1658, Until Thu01/15/11 at 2034, | | | | | | | mild pain, moderate pain | | | | | | + +-------+ + +---+---+ +-------+ + +---+---+ | Given | 01/16/20 | 1 tablet | | | | | 11 8:24 | | | | | | AM PDT | | | | +-------+ + +---+---+ | Given | 01/16/20 | 1 tablet | | | | | 11 4:40 | | | | | | AM PDT | | | | +-------+ + +---+---+ +---+---+ | | | +---+---+ + +-------+ +--------+---+---+ | HYDROmorphone (aka DILAUDID) | Given | 01/15/20 | 0.8 mg | | | | injection 0.2-0.6 mg 0.2-0.6 mg, | | 11 5:40 | | | | | intravenous, EVERY 2 HOURS | | PM PDT | | | | | NEEDED, Starting Thu01/14/11 at | | | | | | | 1658, Until Thu01/15/11 at 2033, | | | | | | | moderate pain | | | | | | + +-------+ +--------+---+---+ + +---+ | | | + +---+ | HYDROmorphone (aka DILAUDID) | | | injection 1 dose, Starting Tue | | | 01/14/11 at 1630, Until Tue | | | 01/14/11 at 1740 | | + +---+ | | | + +---+ + +-------+ +---------+---+---+ | levothyroxine tablet 150 mcg | Given | 01/16/20 | 150 mcg | | | | 150 mcg, oral, DAILY, First dose | | 11 8:05 | | | | | on Thu01/15/11 at 0900, Until | | AM PDT | | | | | Discontinued | | | | | | + +-------+ +---------+---+---+ +---+---+ | | | +---+---+ + +-------+ +------+---+---+ | LORazepam (aka ATIVAN) tablet 2 | Given | 01/15/20 | 2 mg | | | | mg 2 mg, oral, EVERY 4 HOURS | | 11 8:51 | | | | | NEEDED, Starting Thu01/14/11 at | | PM PDT | | | | | 1619, Until Thu01/15/11 at 2034, | | | | | | | anxiety | | | | | | + +-------+ +------+---+---+ +---+---+ | | | +---+---+ + +-------+ +------+---+---+ | prochlorperazine (aka | Given | 01/15/20 | 5 mg | | | | COMPAZINE) injection 2.5-10 mg | | 11 5:02 | | | | | 2.5-10 mg, intravenous, | | PM PDT | | | | | POSTPROCEDURE PRN, 1 dose, | | | | | | | Starting Thu01/14/11 at 1426, | | | | | | | Until Thu01/14/11 at 1658, | | | | | | | nausea/vomiting | | | | | | + +-------+ +------+---+---+ + +---+ | | | + +---+ | prochlorperazine (aka | | | COMPAZINE) injection 1 dose, | | | Starting 01/14/11 at 1630, | | | Until 01/14/11 at 1702 | | + +---+ | | | + +---+ + +-------+ +---------+---+---+ | promethazine (aka PHENERGAN) | Given | 01/15/20 | 6.25 mg | | | | injection 1 dose, Starting Tue | | 11 5:01 | | | | | 01/14/11 at 1630, Until Tue | | PM PDT | | | | | 01/14/11 at 1701 | | | | | | + +-------+ +---------+---+---+ +---+---+ | | | +---+---+ + +-------+ + +---+---+ | senna-docusate (aka BOOKER S) | Given | 01/16/20 | 1 tablet | | | | 8.6-50 mg 1 Tab 1 tablet, oral, | | 11 8:05 | | | | | TWICE DAILY, First dose on Thu | | AM PDT | | | | | 01/15/11 at 0900, Until | | | | | | | Discontinued | | | | | | + +-------+ + +---+---+ +---+---+ | | | +---+---+ documented in this encounter
--- OUTSIDE RECORDS SUMMARY | ~2020-05-22 | XMS | Encounter Summary ---
Demographics + + + | Address | [address] | | | [place] [address] | + + + | Home Phone | | + + + | Preferred Language | Unknown | + + + | Marital Status | | + + + | Religion Affiliation | CHR | + + + | Race | White | + + + | Ethnic Group | Not or | + + + Author + + + | Author | [facility] | + + + | Organization | [facility] | + + + | Address | Unknown | + + + | Phone | Unavailable | + + + Support + + +---------+ + | Name | Relationship | Address | Phone | + + +---------+ + | Hans Grissom | ECON | Unknown | | + + +---------+ + Care Team Providers + +------+ + | Care Charge Entry Clerk Name | Role | Phone | + +------+ + PCP | Unavailable | + +------+ + Encounter Details +--------+ + + + + | Date | Type | Department | Care Team | Description | +--------+ + + + + | 08/15/ | Documentati | Otolaryngology | Ashleigh Negrete, | | | 2010 | on | Thyroid Services at | MD [address] | | | | | [facility] [address] | | | | | [address] | [place], [place] | | | | | Physician's | [address] | | | | | Pavilion, 2nd floor | [phone] | | | | | [place], [place] | | | | | | [address] | | | | | | [phone] | | | +--------+ + + + [...] + + documented as of this encounter Miscellaneous Notes Telephone Encounter - Rosi Curtis - 08/15/2010 3:47 PM PST 06/20/10 04/21/08 TSH 0.070 Free T4 0.76 1.22 Total T3 4.7 documented in this en counter Plan of Treatment Not on filedocumented as of this encounter Visit Diagnoses Not on filedocumented in this encounter"
--- OUTSIDE RECORDS SUMMARY | ~2020-05-22 | XMS | Encounter Summary ---
Demographics + + + | Address | [address] | | | [place] [address] | + + + | Home Phone | | + + + | Preferred Language | Unknown | + + + | Marital Status | | + + + | Synagogue Affiliation | CHR | + + + | Race | White | + + + | Ethnic Group | Not or | + + + Author + + + | Organization | Unknown | + + + | Address | Unknown | + + + | Phone | Unavailable | + + + Support + + +---------+ + | Name | Relationship | Address | Phone | + + +---------+ + | Hans Grissom | ECON | Unknown | | + + +---------+ + Care Team Providers + +------+ + | Care Wrapper Sizer Name | Role | Phone | + +------+ + PCP | Unavailable | + +------+ + Encounter Details +--------+ + + + + | Date | Type | Department | Care Team | Description | +--------+ + + + + | 10/15/ | Office | | Note, Outpatient | Progress Note | | 2005 | Visit-Trans | | Clinic | | | | cribed | | | | +--------+ + + [...] documented as of this encounter Progress Notes Interface, Stock Clipper In - 03/02/2005 1:30 AM [facility] [id number] ETTA Luciano Clinic Date: 10/15/2004 Clinic: Referring Physician: Merlin Redmond M.D. [address] [place], [place] [address] Reason for Referral: I was asked by Dr. Redmond to evaluate this patient for possible pituitary disease due to abnormal thyroid function tests. History of Present Illness: Shellie Grissom is a 24-year-old woman who presents to [facility] on October 15, 2004, for evaluation of possible central hypothyroidism, possible pituitary disease, and possible pituitary adenoma. She states that she has had about a year and a half change in symptoms, which has been quite significant for her. She notes marked fatigue, hair loss, muscle spasms, vaginal dryness, constipation, headaches, and hand tingling. On further questioning, she notes that she has also had about a year and a half of the increased facial hair in addition to the warts on top of her head. She has had worsening acne over the last year and a half with some intermittent bouts of blurry vision. She does not feel she is getting an increasing size of hump on the back of her neck or fat filling around her collar bone. She does not feel she is getting facial rounding or redness. She states that she has been having bouts of constipation, easy bruising, variety of stretch ryan some of which are pinkish. She has had a dry skin. She notes progressive weakness in both her arms and legs, tremor, and cramping. She has had poor concentration, sleep disturbances, fatigue, anxiety, depression, and emotional lability. She has had some episodes of dizziness with standing. She has had temperature fluctuations, decreased libido, menstrual irregularities again over about a year and a half, and currently has an infection in one of her teeth. She has not had acid reflux or heart racing. The exact date of onset of symptoms was unknown. Old records of this patient were obtained and reviewed as part of this clinic visit. Review of Systems: Negative other than as stated above. Past Medical History: Past medical history is significant for none. Medications: Keflex and Vicodin for active tooth infection. Allergies: PERCOCET. SHE HAD HIVES IN MARCH 1997. Family History: Significant for maternal aunt with cancer, maternal uncle with diabetes, maternal grandfather with heart disease, and mother with hypertension. Social History: She does not smoke or drink alcohol. She drinks 1 to 2 cups of caffeinated beverage per day. She is and has 3 children. 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 Enjoys gardening, hiking, and animals. Physical Examination: Vital Signs: Blood pressure 118/80, pulse 88, respirations 12, weight 170, and height 64-3/4 inches. General: A pleasant woman, looks stated age, no acute distress, well nourished, and well developed. HEENT: Normocephalic and atraumatic. Pupils were equally responsive and reactive to light. Extraocular movements are intact. Visual [place] were normal to confrontation. She has some mild hirsutism with a slightly reddish complexion, but no significant acne. She has a roundish face but states that this is not strikingly different than her baseline. She has no frontal bossing, protruding jaw, , ( ) teeth. Neck: No significant dorsocervical hump or supraclavicular fat filling. No lymphadenopathy. No jugular venous distention. Thyroid is normal in size and texture. Heart: Regular rate and rhythm. No rubs, murmurs, or gallops. Lungs: Clear to auscultation. No rhonchi, rales, or wheezes. Abdomen: Positive bowel sounds, nontender, and nondistended. No organomegaly. She has some truncal obesity but not strikingly disproportionate to her extremities. She has some slightly pinkish striae. Breasts: Deferred. Genitourinary: Deferred. Skin: No hyperpigmentation. It was not dry, sweaty, or oily. No significant skin tags, acanthosis nigricans, thinning of the skin, or bruising. Extremities: Upper extremities: No significant proximal muscle weakness or carpal tunnel syndrome. No hand enlargement. No significant tremor or brittle fingernails. Lower extremities: No edema. Neurologic: Alert and oriented x3, 5/5 motor and sensory throughout. No delayed relaxation phase of the brachial reflex. Laboratory Data: She presented to [facility] with a TSH that was low at 0.109 normal range being 0.32 to 5. This was drawn on May 21, 2004. She had a repeat TSH that was 0.088 with the same normal range, this was drawn on September 23, 2004. The corresponding free T-index was 2.4 with the normal range being 1.4 to 4.6, this was drawn on May 21, 2004. At [facility], she had a normal chemistry panel with sodium of 139, potassium 3.9, glucose of 89, TSH was 0.22 normal range being 0.28 to 5, and a free T4 of 0.9 normal being 0.7 to 1.8. FSH and LH were 2 and 2 respectively. Prolactin was 11 diluted and 11 undiluted. She had a random cortisol of 5 performed at 12:12 in the afternoon, corresponding ACTH and IGF-1 were pending at the time of dictation. She has an MRI performed at [facility] on the day of clinic visit which revealed to me what it looked like possibly a small right-sided pituitary adenoma on the superior aspect of the gland adjacent to the right internal carotid artery displacing the gland slightly to the left with a slight left stalk deviation. This was not formally read. Assessment: Shellie Grissom is a 24-year-old woman with a 1-1/2-year history of changing symptoms. Weight does not appear to be a major component of the changes, but she is somewhat overweight at 170 pounds, and it is little bit difficult to assess some of the weight issues, and she has been child-bearing years and has 3 children. She does, however, have a multitude of symptoms that could be consistent with Jes. The reason I was concerned about that was because of the thyroid biopsy with a low TSH and a low normal free T4. This is of somewhat unusual pattern. Typically in subclinical hyperthyroidism, the TSH is low and a free T4 is high normal, and in central hypothyroidism, the TSH is often normal and the free T4 is actually low. The pattern that she has of a low TSH and a low normal free T4 is not commonly actually seen in cortisol abnormalities. Other labs will be interesting and this would be her IGF-1 as well as her ACTH. She does have a small pituitary adenoma per my reading. She does certainly have some central weight gain and symptoms that are more consistent with anything with hypothyroidism than hyperthyroidism again leaning towards a central hypothyroidism picture. At this point, I am unable to really draw a conclusion whether this is a small pituitary lesion as well as these lab abnormalities are related, and if they are somehow due to common pituitary disease I will, at this point, initiate a screening Jes workup with midnight salivary cortisol levels as well as 24-hour urine free cortisol. We will also have the patient return for cortrosyn stimulation test. This was not done just to complete pituitary panel. Plan: Endocrine testing. (1.1) Pituitary function as noted above. IGF-1 is pending. Thyroid is slightly abnormal but has lowish normal free T4 and actually low TSH. She has menstrual irregularities. Her ACTH and Cortrosyn stimulation test are pending. (1.2) Pituitary hormone access. I am somewhat concerned that this could be related to An[place]on's, although this is a rare disease and this would be unlikely. We will, however, do a workup and initiate that starting now with 24-hour urine free cortisol and some midnight salivary tests. Her prolactin is not elevated. I do not anticipate there being an elevated IGF-1 since she does not have any signs or symptoms of acromegaly. (1.3) MRI was performed and is an adequate study, and to my report or to my reading looks like there is a small right-sided adenoma of unclear significance. (2) Medications. There are no medication adjustments or additions to be made at this time. (3) There is no surgical indication. This patient does heel turner to have Angoon's, this would of course be a surgical indication but likely it is at this point just a small little lesion on the pituitary, and her labs are unrelated in that to pituitary. It is either a nonfunctioning adenoma or just a ( )of the gland. (4) There was nothing, and I have asked the patient to follow with PCP at this time. (5) We will get her cortrosyn stimulation tests as soon as the initial screening lab is back. I will discuss with the patient to make determination whether she would like to return to be evaluated further to be followed by me terminal press operator or for me to sign off her case. Sonido Hicks M.D., Ph.D. [facility] / [id number] / [id number] / [id number] / [id number] Electronically signed by Sonido Hicks (Bill) 10-27-2004 10:52:56 PM documented i n this encounter Plan of Treatment Not on filedocumented as of this encounter Visit Diagnoses Not on filedocumented in this encounter"
--- OUTSIDE RECORDS SUMMARY | ~2020-05-22 | XMS | Encounter Summary ---
Demographics + + + | Address | [address] | | | [place] [address] | + + + | Home Phone | | + + + | Preferred Language | Unknown | + + + | Marital Status | | + + + | Tenriism Affiliation | CHR | + + + | Race | White | + + + | Ethnic Group | Not or | + + + Author + + + | Author | [facility] | + + + | Organization | [facility] | + + + | Address | Unknown | + + + | Phone | Unavailable | + + + Support + + +---------+ + | Name | Relationship | Address | Phone | + + +---------+ + | Hans Grissom | ECON | Unknown | | + + +---------+ + Care Team Providers + +------+ + | Care Registration Rep Name | Role | Phone | + +------+ + | No Pcp Per Patient | PCP | Unavailable | + +------+ + Reason for Visit + + + | Reason | Comments | + + + | Consultation | Thyroid surgery | + + + Consultation (Routine) +--------+--------+ + + + + | Status | Reason | Specialty | Diagnoses / | Referred By | Referred To | | | | | Procedures | Contact | Contact | +--------+--------+ + + + + | Closed | | Otolaryngolog | | Christopher, | Ent Thyroid | | | | y | | Bebeto Almaraz MD | [facility] [address] | | | | | | [address] | | | | | [address] | [address] | | | | | | [address] | Physician's | | | | | | [place] [address] | Pavilion, 2nd | | | | | | Phone: | floor | | | | | | [phone] | [place], [place] | | | | | | Fax: | [address] | | | | | | [phone] | Phone: | | | | | | | [phone] | | | | | | | Fax: | | | | | | | [phone] | +--------+--------+ + + + + Encounter Details +--------+---------+ + + + | Date | Type | Department | Care Team | Description | +--------+---------+ + + + | 08/16/ | Office | Otolaryngology | Ashleigh Negrete, | Toxic multinodular | | 2010 | Visit | Thyroid Services at | MD [address] | goiter w/o crisis | | | | [facility] [address] | (Primary Dx) | | | | [address] | [place], [place] | | | | | Physician's | [address] | | | | | Pavilion, 2nd floor | [phone] | | | | | [place], [place] | | | | | | [address] | | | | | | [phone] | | | +--------+---------+ + + + Social History + +-------+ [...] + + + | Blood Pressure | 155/100 | 08/16/2010 1:21 PM | | | | | PST | | + + + + + | Pulse | 114 | 08/16/2010 1:21 PM | | | | | PST | | + + + + + | Temperature | - | - | | + + + + + | Respiratory Rate | - | - | | + + + + + | Oxygen Saturation | - | - | | + + + + + | Inhaled Oxygen | - | - | | | Concentration | | | | + + + + + | Weight | 96.6 kg (213 lb) | 08/16/2010 1:21 PM | | | | | PST | | + + + + + | Height | 162.6 cm (5' 4") | 08/16/2010 1:21 PM | | | | | PST | | + + + + + | Body Mass Index | 36.56 | 08/16/2010 1:21 PM | | | | | PST | | + + + + + documented in this encounter Progress Notes Ashleigh Negrete MD - 08/17/2010 9:39 PM PST Attending Note I personally interviewed the patient, [facility] and personally formulated the plan with the resident. I have reviewed, entered my find ings, and agree with the documentation in the resident's note. We discussed the assessment/impression documented in the resident's note, and I agree with the plans and recommendations outlined. I discussed with the patient the option of total thyroidectomy shince she does not want rad ioactive iodine and cannot tolerate anti-thyroid drugs. The advantages, disadvantages and ri sksalternatives of continuing anti-thyroid medications or radioactive iodine treatment were discussed extensively with the patient. The potential complications of thyroidectomy were al so discussed extensively in lay-man's terms, including but not limited to the risk of genera l anesthesia, thyroid storm with cardiopulmonary complications, permanent voice changes, swa llowing difficulties, permanent hypocalcemia which may require continuous churn buttermaker calcium and vitamin D replacement, chronic neck and throat pain, bleeding, infection and undesirable scar. The need for detention thyroid hormone replacement was also explained. Written information sum marizing these risks was also provided to the patient. All of the patient's questions were answered and she appeared to fully comprehend my explanations. She is considering her option s and will contact us if she should decide on surgery. Ashleigh Negrete M.D. Yves was physically present for the entire ultrasound procedure. Meenakshi Pichardo MD - 08/16/2010 2:06 PM Paul donis of this note might be different from the original. PATIENT: Shellie Grissom [facility] MR#: [id number] DATE OF VISIT: 08/16/2010 REFERRING PROVIDER: Bebeto White MD PRIMARY CARE PROVIDER: No Pcp Per PATIENT CHIEF COMPLAINT: hyperthyroidism HPI: Shellie Grissom is a 30 y.o. female who was referred to the [facility] by Dr. White for evaluation of her hyperthyroidism discovered in 2004 after a fu ll workup for a potential tiny pituitary adenoma was completed. She was negative for Graves dz. She was started on PTU, which caused intolerable swelling of her extremities and then tr eated with methimazole from [id number] until she desired to conceive. After childbirth, she s tarted again on methimazole, which then caused nausea. Since her hyperthyroid state had alwa ys been mild, she was no longer treated. She reports shortness of breath, palpitations, fati chivo, abnormal hair loss, shakiness, anxiety with pain attacks, bone pain in her shoulders an d elbows, and muscle pain in her upper arms and thighs. She also has difficulty sleeping. Th e patient denies difficulty swallowing, neck pain, voice changes, pressure sensation in neck , neurologic symptoms, and neck stiffness. The patient denies hemoptysis. She denies prior radiation exposure to the head and neck region. There is no family histor y of thyroid cancer, but her mother has had a thyroidectomy for Prince's. She has never had an US or thyroid uptake scan. The patient's past medical history, including medical illnesses, surgeries, allergies and m edications were reviewed with the patient. In addition, the family and social history were r eviewed. These are also summarized in the corresponding sections of the patient's EMR chart . Past Medical History Diagnosis Date Pituitary microadenoma 2004 Past Surgical History Procedure Date section Allergies Allergen Reactions Percocet (Oxycodone-acetaminophen) No current outpatient prescriptions on file. Family History Problem Relation Cancer Neg Hx Thyroid Mother History Substance Use Topics Smoking status: never Smokeless tobacco: no Alcohol Use: Never REVIEW OF SYSTEMS Review of Systems: In addition to the significant ROS already noted in the HPI, the remaind er of the review of systems is noted on the Medical Intake Form, which I reviewed with the marybeth espinoza. In addition, the following was reviewed: Constitutional symptoms Weight - stable; Fever or chills - No Eyes: No changes in vision, pain or discharge. Ears, Nose and Throat: Information in HPI. Respiratory: See HPI. In addition, no wheezing. Musculoskeletal: Joint Pain - Yes, described as shoulder/elbow pain; No joint swelling or stiffness. Muscle pain or weakness - Yes, described as upper arms and thigh pain Cardiovascular: See HPI. Gastrointestinal: No loss of appetite, nausea, vomiting, diarrhea. Neurologic: No headaches, numbness or tingling. Skin: No history of malignancy or suspicious lesions. Endocrine: Heat intolerance - No; Cold intolerance - No. Does have excessive feet perspira tion. EXAMINATION: BP 155/100 | Pulse 114 | Ht 1.626 m (5' 4") | Wt 96.616 kg (213 lb) | BMI 36. 56 kg/(m^2) Gen: She is a 30 y.o. female. She is awake, alert and comfortable with the examination. Her weight is elevated. She is normocephalic. Eyes: Pupils were equal, round and reactive. Extraocular motions were full. Ears: The pinnae are normal. External auditory canals show minimal cerumen bilaterally. Nose: The nasal dorsum is straight and the nares are widely patent. The mucosa is pink and there are no lesions or masses noted. The septum was midline Face: There are no suspicious cutaneous lesions noted of the face or head. Salivary Glands: The salivary glands are soft and show no lesions or masses within the par otid or submandibular glands bilaterally. There is no obvious obstruction of Marilynn's or W debby's ducts bilaterally. Oral Cavity: Normal lips and oral competence are noted. The dentition is good. The mucos a shows no lesions or masses. Oropharynx: The tonsillar pillars, palate and base of tongue did not demonstrate any concer jonathon lesions or masses. Neck: The neck is atraumatic without laryngeal deviation. Thyroid is normal to inspection and palpation. Lymphatic examination of the neck revealed no adenopathy Chest: Chest rise is symmetric and there is no audible wheezing or stridor Neuro: Extraocular movements are grossly intact. There is symmetric sensation and movemen t noted of the face. Hearing is grossly intact. Palatal elevation is symmetric and full. Tongue protrusion is midline. In office US today: Name: Shellie Grissom Date of : 1980 Date of procedure: 08/16/2010 Procedure: The patient's neck was scanned with a [employer]'s 7-12 megaHz probe. Indications: Thyroid Hyperthyroidism Findings Right thyroid lobe measured: 18.8 x 14.9 x 37.6 mm Left thyroid lobe measured: 19.1 x 14.6 x 37.6 mm Nodule(s): Right: Mid lobe: 1. 7.2 x 5.2 mm 2. 9.4 x 7.9 x 12.2 mm Inferior: 3. 8.1 x 9.3 x 24.2 mm 4. 5.5 x 3.7 x 6.3 mm Left: Mid: 1. 19.1 x 14.6 x 25.9 mm Superior: 2. 9.8 x 7.7 x 9.8 mm (Images in IMPAX/PACS) STUDIES REVIEWED: 06/20/10 04/21/08 TSH 0.070 Free T4 0.76 1.22 Total T3 4.7 Assessment: Toxic multinodular goiter Recommendation(s)/Plan: We recommended total thyroidectomy given disease in both lobes and symptomatic hyperthyroid ism. Risks of the operation, including bleeding, infection, vocal cord paralysis, hypocalcem ia possibly requiring supplementation for life, and the need for lifetime supplementation of thyroid hormone and its sequelae were discussed. Alternatives were discussed including doin g nothing and radioactive ablation, which may treat the hyperthyroidism; however, the nodule s would still need to be serially followed. The patient consider her options and call back i f she decides to proceed with surgery. Meenakshi Lynn MD Mane Ruvalcaba - 0 08/16/2010 1:25 PM PSTAdditional staff support provided to the patient during this encounter included: Health maintenance reviewed and documented. documented in this encou nter Miscellaneous Notes Scan - Other, Faculty - 01/01/2011 8:31 PM PDT can - Other, Faculty - 09/06/2010 10:40 AM PST can - Other, Faculty - 08/23/2010 9:10 AM PST documented in this encou nter Plan of Treatment Not on filedocumented as of this encounter Procedures + +--------+ + + + | Procedure Name | Priori | Date/Time | Associated Diagnosis | Comments | | | ty | | | | + +--------+ + + + | MD US,HEAD/NECK | Routin | 08/20/2010 | Toxic multinodular | | | TISSUES,B-SCAN/REAL | e | 10:42 PM | goiter w/o crisis | | | TIME | | PST | | | + +--------+ + + + documented in this encounter Visit Diagnoses + + | Diagnosis | + + | 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
--- OUTSIDE RECORDS SUMMARY | ~2020-05-22 | XMS | Clinical Summary ---
Demographics + + + | Address | [address] | | | [place] [address] | + + + | Home Phone | | + + + | Preferred Language | Unknown | + + + | Marital Status | Unknown | + + + | Hoahaoism Affiliation | Unknown | + + + | Race | White | + + + | Ethnic Group | Unknown | + + + Author + + + | Author | [facility] | | | and [facility] | + + + | Organization | [facility] | | | and [place] | + + + | Address | Unknown | + + + | Phone | Unavailable | + + + Care Team Providers + +------+ + | Care Bonded Structures Repairer Name | Role | Phone | + +------+ + | Venus Bond | PCP | | + +------+ + Allergies + + + + + + | Active Allergy | Reactions | Severity | Noted | Comments | | | | | Date | | + + + + + + | Oxycodone-Acetaminop | Hives | High | 01/19/20 | | | hen | | | 13 | | + + + + + + Medications + + + +---------+------+------+-------+ | Medication | Sig | Dispensed | Refills | Star | End | Statu | | | | | | t | Date | s | | | | | | Date | | | + + + +---------+------+------+-------+ | Multiple | Take 1 tablet by | | 0 | 04/03 | | Activ | | Vitamins-Minerals | mouth daily. | | | 09/22 | | e | | (MULTIVITAMIN WITH | | | | 17 | | | | MINERALS) tablet | | | | | | | + + + +---------+------+------+-------+ | levothyroxine | Take 137 mcg by | | 0 | 01/01 | | Activ | | (SYNTHROID) 137 MCG | mouth daily. 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 | + + + | Irregular periods | 01/18/2013 | + + + Family History + + +------+ + | Medical History | Relation | Name | Comments | + + +------+ + | Diabetes, IDDM | Maternal | | | | | Uncle | | | + + +------+ + + +------+--------+ + | Relation | Name | Status | Comments | + +------+--------+ + | Maternal Uncle | | | | + +------+--------+ + | Maternal Uncle | | | | + +------+--------+ + | Mother | | Alive | | + +------+--------+ + Social History + +-------+ +--------+------+ | [...] on file | | + + + Last Filed Vital Signs + + + + + | Vital Sign | Reading | Time Taken | Comments | + + + + + | Blood Pressure | 140/80 | 04/14/2017 3:36 PM | | | | | PDT | | + + + + + | Pulse | 95 | 04/14/2017 3:36 PM | | | | | PDT | | + + + + + | Temperature | - | - | | + + + + + | Respiratory Rate | 20 | 04/14/2017 3:36 PM | | | | | PDT | | + + + + + | Oxygen Saturation | - | - | | + + + + + | Inhaled Oxygen | - | - | | | Concentration | | | | + + + + + | Weight | 100.2 kg (220 lb | 04/14/2017 3:36 PM | | | | 12.8 oz) | PDT | | + + + + + | Height | 162.6 cm (5' 4") | 04/14/2017 3:36 PM | | | | | PDT | | + + + + + | Body Mass Index | 37.9 | 04/14/2017 3:36 PM | | | | | PDT | | + + + + + Plan of Treatment + + +-------+ + | Health Maintenance | Due Date | Last | Comments | | | | Done | | + + +-------+ + | Vaccine: | | | | | Dtap/Tdap/Td (1 - | 8 | | | | Tdap) | | | | + + +-------+ + | Cervical Cancer | | | | | Screening (Pap) | 9 | | | + + +-------+ + | Vaccine: Influenza | | | | | (#1) | 0 | | | + + +-------+ + Results Not on filefrom Last 3 Months
--- OUTSIDE RECORDS SUMMARY | ~2020-05-22 | XMS | Encounter Summary ---
Demographics + + + | Address | [address] | | | [place] [address] | + + + | Home Phone | | + + + | Preferred Language | Unknown | + + + | Marital Status | Unknown | + + + | Evangelical Affiliation | Unknown | + + + | Race | White | + + + | Ethnic Group | Unknown | + + + Author + + + | Author | [facility] | | | and [facility] | + + + | Organization | [facility] | | | and [place] | + + + | Address | Unknown | + + + | Phone | Unavailable | + + + Care Team Providers + +------+ + | Care Floor Attendant Name | Role | Phone | + +------+ + PCP | Unavailable | + +------+ + Encounter Details +--------+ + + + + | Date | Type | Department | Care Team | Description | +--------+ + + + + | 10/13/ | Hospital | [facility] | Dhruv Horan | JALEN [facility] | | 2001 | Encounter | CONVERSION DEP [address] | Shlomo [phone] | FOLLOW-UP | | | | MATI LOCKH[place] | (Fax) | | | | | [facility] | | | | | | [address] | | | | | | [phone] | | | +--------+ + + + [...]
--- OUTSIDE RECORDS SUMMARY | ~2020-05-22 | XMS | Encounter Summary ---
Demographics + + + | Address | [address] | | | [place] [address] | + + + | Home Phone | | + + + | Preferred Language | Unknown | + + + | Marital Status | Unknown | + + + | Yazdanism Affiliation | Unknown | + + + | Race | White | + + + | Ethnic Group | Unknown | + + + Author + + + | Author | [facility] | | | and [facility] | + + + | Organization | [facility] | | | and [place] | + + + | Address | Unknown | + + + | Phone | Unavailable | + + + Care Team Providers + +------+ + | Care Crime Data Specialist Name | Role | Phone | + +------+ + | Venus Bond | PCP | | + +------+ + Encounter Details +--------+ + + + + | Date | Type | Department | Care Team | Description | +--------+ + + + + | 01/18/ | Orders Only | [facility] | Priti He | | | 2012 | | [facility] | MD [address] | | | | | [facility] | [address] | | | | | [address] | [place] [address] | | | | | [address] [facility] [phone] | | | | | [place] [address] | | | | | | [phone] | | | +--------+ + + + [...] | + +--------+ + + + | [place] | Routin | 01/18/2013 | | Results for this | | HYSTEROSALPINGOGRAM | e | 12:56 PM | | procedure are in the | | | | PDT | | results section. | + +--------+ + + + documented in this encounter Results [place] Hysterosalpingogram (01/18/2013 12:56 PM PDT) + + | Specimen | + + | | + + + + + | Narrative | Performed At | + + + | History: 32 year-old female with reversal of tubal ligation | | | TECHNIQUE: Hysterosalpingogram, total fluoroscopy time .9 minutes. | | | After the procedure was explained to the patient and informed written | | | consent was obtained and witnessed, issues to include pain, infection | | | or failed procedure informed consent was obtained and witnessed. | | | In the presence a female technologist /standby -- a pelvic examination | | | identified the cervical os. The cervix is then visualized to the | | | speculum, cleaned with a Betadine solution and the cervix was | | | cannulated with a flexible balloon tip catheter. Isovue 300 was | | | infused and multiple images of the uterine cavity and fallopian tubes | | | obtained. Prior study, none. FINDINGS: The uterine cavity was | | | normal. The left fallopian tube demonstrated patency, although | | | diminutive. The right fallopian tube was also patent, although | | | diminutive. IMPRESSION: 1. Uterine cavity normal. 2. | | | Fallopian tubes were both patent to this modality, although | | | diminutive. Electronically signed by Royce Connors MD on | | | 01/18/2013 2:30 PM | | + + + + + | Procedure Note | + + | Hilton, Rad Conversion - 03/25/2019 5:46 PM PDT History: 32 year-old female with | | reversal of tubal ligation TECHNIQUE: Hysterosalpingogram, total fluoroscopy time .9 | | minutes. After the procedure was explained to the patient and informed written consent | | was obtained and witnessed, issues to include pain, infection or failed procedure | | informed consent was obtained and witnessed. In the presence a female technologist | | /standby -- a pelvic examination identified the cervical os. The cervix is then | | visualized to the speculum, cleaned with a Betadine solution and the cervix was | | cannulated with a flexible balloon tip catheter. Isovue 300 was infused and multiple | | images of the uterine cavity and fallopian tubes obtained. Prior study, none. FINDINGS: | | The uterine cavity was normal. The left fallopian tube demonstrated patency, although | | diminutive. The right fallopian tube was also patent, although diminutive. IMPRESSION: | | 1. Uterine cavity normal. 2. Fallopian tubes were both patent to this modality, although | | diminutive. | | | |The left fallopian tube demonstrated patency, although diminutive. | | | |The right fallopian tube was also patent, although diminutive. | | | |IMPRESSION: | | | |1. Uterine cavity normal. | | | |2. Fallopian tubes were both patent to this modality, although diminutive. | | | | | + + documented in this encounter Visit Diagnoses Not on filedocumented in this encounter"
--- OUTSIDE RECORDS SUMMARY | ~2020-05-22 | XMS | Encounter Summary ---
Demographics + + + | Address | [address] | | | [place] [address] | + + + | Home Phone | | + + + | Preferred Language | Unknown | + + + | Marital Status | | + + + | Bahai Affiliation | CHR | + + + | Race | White | + + + | Ethnic Group | Not or | + + + Author + + + | Author | [facility] | + + + | Organization | [facility] | + + + | Address | Unknown | + + + | Phone | Unavailable | + + + Support + + +---------+ + | Name | Relationship | Address | Phone | + + +---------+ + | Hans Grissom | ECON | Unknown | | + + +---------+ + Care Team Providers + +------+ + | Care Professional Skateboarder Name | Role | Phone | + +------+ + PCP | Unavailable | + +------+ + Encounter Details +--------+ + + + + | Date | Type | Department | Care Team | Description | +--------+ + + + + | 08/01/ | Telephone | Endocrinology | Sonido Hicks, | | | 2005 | | Pituitary Disease | [address] | | | | | [address] [address] | [place], [place] | | | | | [place] Mailcode: [address] | [address] | | | | | [facility] | | | | | | and Healing, | | | | | | | | | | | | [place], [place] | | | | | | [address] | | | | | | [phone] | | | +--------+ + + + [...] this encounter Miscellaneous Notes Telephone Encounter - Sheryl Olguin - 08/01/2006 12:32 PM PSTDr. Hicks is signing off care for this patient. Reason: Pt. seeking treatment from another doctor. documented in this encounter Plan of Treatment Not on filedocumented as of this encounter Visit Diagnoses Not on filedocumented in this encounter"
--- OUTSIDE RECORDS SUMMARY | ~2020-05-22 | XMS | Clinical Summary ---
Demographics + + + | Address | [address] | | | [place] [address] | + + + | Home Phone | | + + + | Preferred Language | Unknown | + + + | Marital Status | | + + + | Mosque Affiliation | CHR | + + + | Race | White | + + + | Ethnic Group | Not or | + + + Author + + + | Author | [facility] | + + + | Organization | [facility] | + + + | Address | Unknown | + + + | Phone | Unavailable | + + + Support + + +---------+ + | Name | Relationship | Address | Phone | + + +---------+ + | Hans Grissom | ECON | Unknown | | + + +---------+ + Care Team Providers + +------+ + | Care Senior Pastor Name | Role | Phone | + +------+ + | Bebeto White MD | PCP | | + +------+ + Source Comments ANA M is fully live on both EpicCare Ambulatory and EpicCare InPatient.[facility] & [facility] Allergies + + + + + + | Active Allergy | Reactions | Severity | Noted | Comments | | | | | Date | | + + + + + + | Oxycodone-Acetaminop | Rash | | 08/16/19 | | | hen | | | 11 | | + + + + + + Medications + + + +---------+------+------+-------+ | Medication | Sig | Dispensed | Refills | Star | End | Statu | | | | | | t | Date | s | | | | | | Date | | | + + + +---------+------+------+-------+ | multivitamin Oral | Take 1 Tab by mouth | | 0 | | | Activ | | Tablet | once daily. | | | | | e | + + + +---------+------+------+-------+ | levothyroxine 150 | Take 1 Tab by mouth | 30 Tab | 3 | 01/01 | | Activ | | mcg Oral Tablet | once daily. 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 | | | | 11 | 1 | + + + + + + | Overview: ICD10 | + + Family History + + +------+ + | Medical History | Relation | Name | Comments | + + +------+ + | Thyroid | Mother | | | + + +------+ + | Cancer | Neg Hx | | | + + +------+ + + +------+--------+ + | Relation | Name | Status | Comments | + +------+--------+ + | Mother | | | | + +------+--------+ + Social History [...] + + + | Blood Pressure | 127/86 | 01/23/2011 1:11 PM | | | | | PDT | | + + + + + | Pulse | 81 | 01/23/2011 1:11 PM | | | | | PDT | | + + + + + | Temperature | 36.9 C (98.5 F) | 01/23/2011 1:11 PM | | | | | PDT [...] + + + + | Weight | 91.2 kg (201 lb) | 01/23/2011 1:11 PM | | | | | PDT | | + + + + + | Height | 162.6 cm (5' 4") | 01/14/2011 1:00 PM | | | | | PDT | | + + + + + | Body Mass Index | 34.5 | 01/14/2011 1:00 PM | | | | | PDT | | + + + + + Plan of Treatment + + +-------+ + | Health Maintenance | Due Date | Last | Comments | | | | Done | | + + +-------+ + | Influenza (Flu) | | | | | vaccination (#1) | 0 | | | + + +-------+ + | Pneumococcal | Aged Out | | No longer eligible based on patient's age | | vaccination | | | to complete this topic | + + +-------+ + Results Not on filefrom Last 3 Months Insurance + +--------+ +--------+-------+---------+------+ | Payer | Benefi | Subscriber | Effect | Phone | Address | Type | | | t Plan | ID | maribel | | | | | | / | | Dates | | | | | | Group | | | | | | + +--------+ +--------+-------+---------+------+ | [employer] | UNITED | [id number] | 10/03/19 | | | PPO | | | | | 10-Pre | | | | | | HEALTH | | sent | | | | | | CARE | | | | | | + +--------+ +--------+-------+---------+------+ + +--------+ +--------+ + + | Guarantor Name | Accoun | Relation to | Date | Phone | Billing Address | | | t Type | Patient | of | | | | | | | | | | + +--------+ +--------+ + + | Shellie Grissom | Person | Self [birth year] | [address] | | | al/Fam | | 1980 | [phone] | [place] [address] | | | eric | | | 6 (Home) | | + +--------+ +--------+ + + Advance Directives + + + + + | Code Status | Date | Date | Comments | | | Activated | Inactivated | | + + + + + | Full Code | 01/14/2011 | 01/15/2011 | | | | 4:58 PM | 8:34 PM | | + + + + +
--- OUTSIDE RECORDS SUMMARY | ~2020-05-22 | XMS | Encounter Summary ---
Demographics + + + | Address | [address] | | | [place] [address] | + + + | Home Phone | | + + + | Preferred Language | Unknown | + + + | Marital Status | | + + + | Anglican Affiliation | CHR | + + + [...] Team Providers + +------+ + | Care Wharf Operator Name | Role | Phone | + +------+ + | Bebeto White MD | PCP | | + +------+ + Reason for Visit +---------+ + | Reason | Comments | +---------+ + | Post Op | | +---------+ + PROC - Inpatient Surgery (Routine) +--------+--------+ + + + + | Status | Reason | Specialty | Diagnoses / | Referred By | Referred To | | | | | Procedures | Contact | Contact | +--------+--------+ + + + + | Closed | | Otolaryngolog | Diagnoses | Christopher | Caden | | | | y | Disorders | Bebeto Almaraz MD | Ashleigh Guidry MD | | | | | of | [address] | | | | | parathyroid | [address] | [address] | | | | | gland | [address] | [address] [place], | | | | | Procedures | [place] [address] | [place] | | | | | [place] | Phone: | [phone] | | | | | THYROIDECTOM | [phone] | Phone: | | | | | Y | Fax: | [phone] | | | | | | [phone] | Fax: | | | | | | | [phone] | +--------+--------+ + + + + Encounter Details +--------+---------+ + + + | Date | Type | Department | Care Team | Description | +--------+---------+ + + + | 01/23/ | Office | Otolaryngology | Ashleigh Negrete, | Benign neoplasm of | | 2010 | Visit | Thyroid Services at | MD [address] | thyroid glands | | | | [facility] [address] | (Primary Dx) | | | | [address] | [place], [place] | | | | | Physician's | [address] | | | | | Pavilion, 2nd floor | [phone] | | | | | [place], [place] | | | | | | [address] | | | | | | [phone] | | | +--------+---------+ + + + [...] + + + + | Height | - | - | | + + + + + | Body Mass Index | 34.5 | 01/14/2011 1:00 PM | | | | | PDT | | + + + + + documented in this encounter Patient Instructions Patient Instructions Ashleigh Negrete MD - 01/23/2011 1:36 PM PDT1. Apply an oily product (such as mineral oil) daily to the incision to get the Dermabond (glue) off. After the Derm abond comes off, if you wish, you may apply an over the counter scar product (Julio Santoyo uard) to the incision. Use sunscreen on it for 6 months if the incision is going to be expos ed to the sun. 2. Have your referring physician (primary care or media planner / buyer) check a TSH level. Elect ronically signed by Ashleigh Negrete MD at 01/23/2011 1:36 PM PDT documented in this encounter Progress Notes Ashleigh Negrete MD - 01/23/2011 1:43 PM PDTFormatting of this note might be different fr om the original. POST-OPERATIVE VISIT Shellie Grissom returns today for her postoperative visit following total thyroidectomy on 01/14/11 Current Medication List Name Sig LEVOTHYROXINE 150 MCG TAB Take 1 Tab by mouth once daily. MULTIVITAMIN TAB Take 1 Tab by mouth once daily. Symptoms- She feels well. She is swallowing without difficulties and does not have any vo ice complaints. She has had some difficulty sleeping and occasionally has palpitations. Exam: Voice is the same as preop. The incision is flat and healing well without erythema or infection Pathology- Date 01/14/2011 Final Thyroid, total thyroidectomy: - Nodular thyroid hyperplasia Case seen by: Сергей Duke M.D., Ph.D./Surgical Pathology Fellow Corbin Cochran M.D./Pathologist Rendering Diagnostician: Corbin Cochran M.D. Pathologist Electronically Signed 01/17/2011 12:01PM Postop PTH -20 Calcium-..CALCIUM (mg/dL) Date Value 01/16/2011 8.8 CALCIUM, PLASMA (LAB) (mg/dL) Date Value 01/15/2011 7.6* IMPRESSION: Doing well postop. PLAN / RECOMMENDATIONS Wound care instructions were discussed with the patient. A copy of the pathology report was given to the patient. The patient was instructed to retu rn to her media planner / buyer DR. White for follow-up. Hold levothyroxine for now. She is getting TFTs done early next week and seeing DR. White. Ashleigh Negrete M.D., F.A.C.S. 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
--- OUTSIDE RECORDS SUMMARY | ~2020-05-22 | XMS | Encounter Summary ---
Demographics + + + | Address | [address] | | | [place] [address] | + + + | Home Phone | | + + + | Preferred Language | Unknown | + + + | Marital Status | Unknown | + + + | Lutheran Affiliation | Unknown | + + + | Race | White | + + + | Ethnic Group | Unknown | + + + Author + + + | Author | [facility] | | | and [facility] | + + + | Organization | [facility] | | | and [place] | + + + | Address | Unknown | + + + | Phone | Unavailable | + + + Care Team Providers + +------+ + | Care Lunchroom Supervisor Name | Role | Phone | + +------+ + PCP | Unavailable | + +------+ + Encounter Details +--------+ + + + + | Date | Type | Department | Care Team | Description | +--------+ + + + + | 01/18/ | Hospital | [facility] | Conversion | | | 2012 | Encounter | [facility] | Transaction, | | | | | [address] | Provider Unknown | | | | | [address] [place], [place] | [phone] | | | | | [address] | | | | | | [phone] | Priti He | | | | | | MD [address] | | | | | | [address] | | | | | | [place] [address] | | | | | | [phone] | | | | | | | [...]
--- OUTSIDE RECORDS SUMMARY | ~2020-05-22 | XMS | Encounter Summary ---
Demographics + + + | Address | [address] | | | [place] [address] | + + + | Home Phone | | + + + | Preferred Language | Unknown | + + + | Marital Status | Unknown | + + + | Samaritan Affiliation | Unknown | + + + | Race | White | + + + | Ethnic Group | Unknown | + + + Author + + + | Author | [facility] | | | and [facility] | + + + | Organization | [facility] | | | and [place] | + + + | Address | Unknown | + + + | Phone | Unavailable | + + + Care Team Providers + +------+ + | Care Ditch Inspector Name | Role | Phone | + +------+ + | Venus Bond | PCP | | + +------+ + Encounter Details +--------+ + + + + | Date | Type | Department | Care Team | Description | +--------+ + + + + | 02/10/ | Orders Only | [facility] | Tyler Avila, | | | 2017 | | CARDIOLOGY [place] | [address] | | | | | [address] | [place] [address] | | | | | [place], [place] | [phone] | | | | | [address] | | | | | | [phone] | | | +--------+ + + + [...] 0.80 m/s MV | | | Dec [place]: 6.82 m/s2 MV DecT: 126.58 ms MV [...] | maxP.10 mmHg TR Vmax: 2.18 m/s Client Services Representative: SUKHJINDER | | | Authenticated by: Tyler Avila MD, FACC, FACP, DOC Report | | | Date/Time: 02-15-2017 11:46:00 | | + + + + + | Procedure Note | + + | Hilotn, Rad Conversion - 03/24/2019 6:00 PM PDT [...] cmLVIDd: 3.66 cmLVPWd: 1.06 cmLVOT Area: 3.29 co6ATKJ Diam: | | 2.05 cm%FS: 38.72 %EF(Teich): [...] (A-L): 12.42 ml/m2LAAs | | A2C: 11.36 vx5PCNBS A-L A2C: 27.39 mlLALs A2C: 4.00 cmLAAs A4C: 9.37 ap5BFAWF | | A-L A4C: 20.90 mlLALs A4C: 3.56 cmRAAs: 9.58 oc2XAKNQ A-L: 20.39 mlRAESV MOD: | | 19.30 mlRALs: 3.82 cmTAPSE: 2.58 cmAV maxP.75 mmHgAV meanP.08 mmHgAV | | Vmax: 1.39 m/Jackson Vmean: 0.95 m/Jackson VTI: 25.01 cmAVA Vmax: 2.74 cm2AVA (VTI): | | 2.96 wc0QRSF (Vmax): 0.00 cm2/m2AVAI (VTI): 0.00 cm2/m2LVOT maxP.37 mmHgLVOT | | meanP.82 mmHgLVSI Dopp: 36.30 ml/m2LVSV Dopp: 74.05 mlLVOT Vmax: 1.15 | | m/sLVOT Vmean: 0.78 m/sLVOT VTI: 22.44 cmMV A Kiran: 0.80 m/sMV Dec [place]: 6.82 | | m/s2MV DecT: 126.58 msMV E Kiran: 0.86 m/sMV E/A Ratio: 1.07MV PHT: 36.70 msMVA By | | PHT: 5.99 cs9Mtnmrl e': 0.08 m/sSeptal E/e': 10.41Lateral e': 0.10 m/sLateral | | E/e': 7.87P Vein A: 0.20 m/sP Vein D: 0.55 m/sP Vein S/D Ratio: 1.20P Vein S: | | 0.66 m/sPV maxP.89 mmHgPV Vmax: 0.98 m/sRAP: 5 mmHgRVSP: 24.10 mmHgTR maxPG: | | 19.10 mmHgTR Vmax: 2.18 m/s Client Services Representative: DBSAuthenticated by: Tyler Avila MD, | | [...] A Kiran: 0.80 m/s | |MV Dec [place]: 6.82 m/s2 | |MV DecT: 126.58 ms [...] |TR Vmax: 2.18 m/s | | | |Client Services Representative: DBS | |Authenticated by: Tyler Avila MD, FACC, FACP, [facility] | |Report Date/Time: 02-15-2017 11:46:00 | | | |IMPRESSION: | |1. Overall left ventricular systolic function is normal with, an EF between 65 - 70 %. | + + documented in this encounter Visit Diagnoses Not on filedocumented in this encounter"
--- OUTSIDE RECORDS SUMMARY | ~2020-05-22 | XMS | Encounter Summary ---
Demographics + + + | Address | [address] | | | [place] [address] | + + + | Home Phone | | + + + | Preferred Language | Unknown | + + + | Marital Status | | + + + | Mosque Affiliation | CHR | + + + | Race | White | + + + | Ethnic Group | Not or | + + + Author + + + | Author | [facility] | + + + | Organization | [facility] | + + + | Address | Unknown | + + + | Phone | Unavailable | + + + Support + + +---------+ + | Name | Relationship | Address | Phone | + + +---------+ + | Hans Grissom | ECON | Unknown | | + + +---------+ + Care Team Providers + +------+ + | Care Roping Tender Name | Role | Phone | + [...] | cheduled | Medicine Clinic at | [facility] | evaluation | | | | [facility] 4th Floor Day | [address] [place], [place] | | | | | Stay [address] | [address] | | | | | [address] | | | | | | Mailcode: [id number] | | | | | | [facility] | | | | | | [address] [place], [place] | | | | | | [address] | | | | | | [phone] | | | +--------+ + + + [...] OR NON-STEROIDAL ANTI-INFLAMMATORY DRUGS (NSAIDs) Advil, Aleve, [place], Anacin, Arthopan, Ascriptin, Aspergum, Aspirin with and [...] Piroxicam, Propoxyphene, Relafen, R obomol, Rufen, Sine-aid, [place] s cold tablets, Sulindac, Talwin, Tolectin, Triaminici [...] perfume, lotions or powder. Remove any nail slovak from at least one fingernail. Do not [...] Surgery Check in Locations Day Stay Unit [phone], [facility], fourth floor Room [address] [facility] Day Stay [phone], [facility], fourth floor Admitting [phone], [facility], ninth floor lobby [facility] Surgery Unit [phone], [facility], sixth floor Surgery Check in Time Check-in times for Hospital Admissions are not available until the day prior to surgery. So meone from your surgeon's office or the hospital will contact you with your check in time. I f you do not hear from anyone by 3:00 PM please call your surgeons' office for [id number] . Going Home Your surgeon will decide [...] it is after office hours, call the [facility] aging room operator at [phone] and ask them to page your doc [...]
--- OUTSIDE RECORDS SUMMARY | ~2020-05-22 | XMS | Encounter Summary ---
Demographics + + + | Address | [address] | | | [place] [address] | + + + | Home Phone | | + + + | Preferred Language | Unknown | + + + | Marital Status | | + + + | Christian Affiliation | CHR | + + + | Race | White | + + + | Ethnic Group | Not or | + + + Author + + + | Author | [facility] [place] [facility] | + + + | Organization | [facility] [place] [facility] | + + + | Address | Unknown | + + + | Phone | Unavailable | + + + Support + + +---------+ + | Name | Relationship | Address | Phone | + + +---------+ + | Hans Grissom | ECON | Unknown | | + + +---------+ + Care Team Providers + +------+ + | Care Solvent Mixer Name | Role | Phone | + +------+ + | Bebeto White MD | PCP | | + +------+ + Encounter Details +--------+ + + + + | Date | Type | Department | Care Team | Description | +--------+ + + + + | 10/14/ | Ancillary | Registration [id number] | Sonido Hicks, | | | 2004 | Registratio | [facility] | [address] | | | | n | Dario Mailcode: [id number] | [place], [place] | | | | | [place], [place] | [address] | | | | | [address] | | | | | | [phone] | | | +--------+ + + + [...] | | + +---------+ + + | [facility] DEPARTMENT OF | | | | | RADIOLOGY | | | | + +---------+ + + documented in this encounter Visit Diagnoses Not on filedocumented in this encounter
--- OUTSIDE RECORDS SUMMARY | ~2020-05-22 | XMS | Encounter Summary ---
Demographics + + + | Address | [address] | | | [place] [address] | + + + | Home Phone | | + + + | Preferred Language | Unknown | + + + | Marital Status | Unknown | + + + | Hoahaoism Affiliation | Unknown | + + + | Race | White | + + + | Ethnic Group | Unknown | + + + Author + + + | Author | [facility] | | | and [facility] | + + + | Organization | [facility] | | | and [place] | + + + | Address | Unknown | + + + | Phone | Unavailable | + + + Care Team Providers + +------+ + | Care Medical Anthropology Director Name | Role | Phone | + +------+ + | Venus Bond | PCP | | + +------+ + Encounter Details +--------+ + + + + | Date | Type | Department | Care Team | Description | +--------+ + + + + | 02/10/ | Orders Only | [facility] | Tyler Avila, | | | 2017 | | CARDIOLOGY [place] | [address] | | | | | [address] | [place] [address] | | | | | [address] | [phone] | | | | | [place], [place] | | | | | | [address] | | | | | | [phone] | | | +--------+ + + + [...] | + +--------+ + + + | STRESS ECG | Routin | 02/10/2017 | | Results for this | | | e | 4:20 PM | | procedure are in the | | | | PDT | | results section. | + +--------+ + + + documented in this encounter Results Stress ECG (02/10/2017 4:20 PM PDT) + + | Specimen | + + | | + + + + + | Impressions | Performed At | + + + | Average exercise tolerance Somewhat hypertensive response to | | | exercise No exercise-induced symptoms arrhythmias or ECG evidence of | | | ischemia Low risk study Tyler Avila MD, FACC, FACP, FASNC | | | | | + + + + + + | Narrative | Performed At | + + + | [facility] CARDIOLOGY [address], [place], [place] | | | [phone] TREADMILL STRESS TEST TEST DATE: 02/10/2017 NAME: | | | Shellie Grissom : 1980 ORDERING MD: Tyler | | | MD Austin INDICATION FOR TEST: Chest pain RISK FACTORS: stress | | | PROCEDURE: Bebeto protocol. Predicted exercise time was | | | 08:00minutes. Predicted Maximum HR: 183. Predicted 85% Max HR: 156. | | | REST DATA: Heart Rate: 86 bpm, BP: 162/88. ECG: Normal. STRESS | | | DATA: Exercise Time: 07:30minutes, HR achieved: 162 bpm, Max BP: | | | 211/90. RPP: 51333. METS: 10.10. The patient walked to 88% MPHR. | | | Symptoms none. The test was terminated due to patient bilateral leg | | | burning. ECG: No arrhythmia. No ischemia. | | + + + + + | Procedure Note | + + | Hilton, Rad Conversion - 03/25/2019 10:00 AM PDT [facility] [id number] | | , [address], [place], [phone] TREADMILL STRESS TESTTEST DATE: 02/10/2017NAME: | | Hortencia Grissom: 1980MRN: [id number] MD: Tyler Avila MD INDICATION FOR | | TEST: Chest pain RISK FACTORS: stress PROCEDURE: Bebeto protocol. Predicted exercise time | | was 08:00minutes. Predicted Maximum HR: 183. Predicted 85% Max HR: 156. REST DATA: | | Heart Rate: 86 bpm, BP: 162/88. ECG: Normal. STRESS DATA: Exercise Time: 07:30minutes, | | HR achieved: 162 bpm, Max BP: 211/90. RPP: 12694. METS: 10.10. The patient walked to 88% | | MPHR. Symptoms none. The test was terminated due to patient bilateral leg burning. ECG: | | No arrhythmia. No ischemia. IMPRESSION: Average exercise toleranceSomewhat hypertensive | | response to exerciseNo exercise-induced symptoms arrhythmias or ECG evidence of | | ischemiaLow risk study Tyler Avila MD, FACC, FACP, FASNC | | | |RISK FACTORS: stress | | | |PROCEDURE: Bebeto protocol. Predicted exercise time was 08:00minutes. Predicted Maximum HR: 183. Predicted 85% Max HR: 156. | | | |REST DATA: Heart Rate: 86 bpm, BP: 162/88. ECG: Normal. | | | |STRESS DATA: Exercise Time: 07:30minutes, HR achieved: 162 bpm, Max BP: 211/90. RPP: 00468. METS: 10.10. The patient walked to 88% MPHR. Symptoms none. The test was terminated due to patient bilateral leg burning. ECG: No arrhythmia. No ischemia. | | | |IMPRESSION: | |Average exercise tolerance | |Somewhat hypertensive response to exercise | |No exercise-induced symptoms arrhythmias or ECG evidence of ischemia | |Low risk study | | | |Tyler Avila MD, FACC, FACP, FASNC | | | | | + + documented in this encounter Visit Diagnoses Not on filedocumented in this encounter"
--- OUTSIDE RECORDS SUMMARY | ~2020-05-22 | XMS | Encounter Summary ---
Demographics + + + | Address | [address] | | | [place] [address] | + + + | Home Phone | | + + + | Preferred Language | Unknown | + + + | Marital Status | | + + + | Yazidi Affiliation | CHR | + + + [...] Team Providers + +------+ + | Care Laborer Rags Name | Role | Phone | + [...] as of this encounter Progress Notes Interface, Aircraft Quality Control Inspector In - 03/02/2005 1:30 AM PDT [id number] [facility] Date: 10/22/2004 Clinic: Pituitary Clinic Reason for Visit: Shellie Grissom is a 24-year-old female who returns to the Pituitary Clinic on October 22, 2004, for consultation on a low-dose cortrosyn stimulation test. This visit was staffed by Dr. Sonido Hicks. Procedure Note: I had spent a total of 60 minutes of [id number]-[id number]-btvi time of which over 50% was spent [...] was discarded. Laura Blum M.D., Ph.D. / [id number] / [id number] / [id number] / [id number] Electronically signed by Sonido Hicks (Bill) 10-27-2004 10:53:07 PM documented i n this encounter Plan of Treatment Not on filedocumented as of this encounter Visit Diagnoses Not on filedocumented in this encounter"
--- OUTSIDE RECORDS SUMMARY | ~2020-05-22 | XMS | Encounter Summary ---
Demographics + + + | Address | [address] | | | [place] [address] | + + + | Home Phone | | + + + | Preferred Language | Unknown | + + + | Marital Status | Unknown | + + + | Religion Affiliation | Unknown | + + + | Race | White | + + + | Ethnic Group | Unknown | + + + Author + + + | Author | [facility] | | | and [facility] | + + + | Organization | [facility] | | | and [place] | + + + | Address | Unknown | + + + | Phone | Unavailable | + + + Care Team Providers + +------+ + | Care Fisher Seal Name | Role | Phone | + +------+ + PCP | Unavailable | + +------+ + Encounter Details +--------+ + + + + | Date | Type | Department | Care Team | Description | +--------+ + + + + | 08/23/ | Emergency | [facility] | Ramirez Ulloa, | Anxiety State, | | 2008 - | | MEDICAL CENTER | MD [facility] | Unspecified | | | | EMERGENCY CENTER | [place], [place] | | | 08/24/ | | [address] [facility] | [address] | | | 2008 | | [place], [place] | | | | | | [address] | | | | | | [phone] | | | +--------+ + + + [...]
--- OUTSIDE RECORDS SUMMARY | ~2020-05-22 | XMS | Encounter Summary ---
Demographics + + + | Address | [address] | | | [place] [address] | + + + | Home Phone | | + + + | Preferred Language | Unknown | + + + | Marital Status | | + + + | Anglican Affiliation | CHR | + + + | Race | White | + + + | Ethnic Group | Not or | + + + Author + + + | Author | [facility] | + + + | Organization | [facility] | + + + | Address | Unknown | + + + | Phone | Unavailable | + + + Support + + +---------+ + | Name | Relationship | Address | Phone | + + +---------+ + | Hans Grissom | ECON | Unknown | | + + +---------+ + Care Team Providers + +------+ + | Care Hand Tennis Ball Coverer Name | Role | Phone | + [...] | | | [address] | [place], [place] | | | | | Physician's | [address] | | | | | Lizzy, 2nd floor | [phone] | | | | | [place], [place] | | | | | | [address] | | | | | | [phone] | | | +--------+ + + + [...]
--- OUTSIDE RECORDS SUMMARY | ~2020-05-22 | XMS | Encounter Summary ---
Demographics + + + | Address | [address] | | | [place] [address] | + + + | Home Phone | | + + + | Preferred Language | Unknown | + + + | Marital Status | | + + + | Catholic Affiliation | CHR | + + + | Race | White | + + + | Ethnic Group | Not or | + + + Author + + + | Author | [facility] | + + + | Organization | [facility] | + + + | Address | Unknown | + + + | Phone | Unavailable | + + + Support + + +---------+ + | Name | Relationship | Address | Phone | + + +---------+ + | Hans Grissom | ECON | Unknown | | + + +---------+ + Care Team Providers + +------+ + | Care Ornamental Metal Worker Helper Name | Role | Phone | + +------+ + | Bebeto White MD | PCP | | + +------+ + Reason for Visit +--------+--------+ + | Reason | Onset | Comments | | | Date | | +--------+--------+ + | Other | 01/16/ | needs calcium level order sent to [facility] in | | | 2010 | [place]. [...] | | | Surgery Services at | [address] | [facility] in | | | | [address] | [place], [place] | [place]. ) | | | | [address] | [address] | | | | | Physician's | [phone] | | | | | Lizzy, 2nd floor | | | | | | [place], [place] | | | | | | [address] | | | | | | [phone] | | | +--------+ + + + [...] Danielle - 01/16/2011 10:19 AM PDTKevynjairo Grissom [id number] Message: pt needs to have her calcium level done today. Please fax order to [facility] in [place]. LAST APPOINTMENT: 01/13/11 at 12:30 pm LAST [...]
--- OUTSIDE RECORDS SUMMARY | ~2020-05-22 | XMS | Encounter Summary ---
Demographics + + + | Address | [address] | | | [place] [address] | + + + | Home Phone | | + + + | Preferred Language | Unknown | + + + | Marital Status | | + + + | Episcopal Affiliation | CHR | + + + | Race | White | + + + | Ethnic Group | Not or | + + + Author + + + | Author | [facility] | + + + | Organization | [facility] | + + + | Address | Unknown | + + + | Phone | Unavailable | + + + Support + + +---------+ + | Name | Relationship | Address | Phone | + + +---------+ + | Hans Grissom | ECON | Unknown | | + + +---------+ + Care Team Providers + +------+ + | Care Bottom Stop Attacher Name | Role | Phone | + [...] | | | | [address] | [place], [place] | | | | | Physician's | [address] | | | | | Pavilion, 2nd floor | [phone] | | | | | [place], [place] | | | | | | [address] | | | | | | [phone] | | | +--------+---------+ + + + [...] om the original. PATIENT NAME: Shellie Grissom [facility] MR#: [id number] : 1980 Date of Service: 01/13/2011 REASON FOR FOLLOW-UP:hyperparathyroidism Shellie Grissom is a 30 y.o. female was previously seen at the [facility] for evaluation of hyperthyroidism. [...] mobile Complications: None Studies since last visit: Technical Services Manager on 01/03/2011 Component Date Value TSH 01/02/2011 [...] | + +--------+ + + + | [place] | Routin | 01/14/2011 | Toxic multinodular [...]
--- OUTSIDE RECORDS SUMMARY | ~2020-05-22 | XMS | Encounter Summary ---
Demographics + + + | Address | [address] | | | [place] [address] | + + + | Home Phone | | + + + | Preferred Language | Unknown | + + + | Marital Status | Unknown | + + + | Zoroastrianism Affiliation | Unknown | + + + | Race | White | + + + | Ethnic Group | Unknown | + + + Author + + + | Author | [facility] | | | and [facility] | + + + | Organization | [facility] | | | and [place] | + + + | Address | Unknown | + + + | Phone | Unavailable | + + + Care Team Providers + +------+ + | Care Waiter Name | Role | Phone | + +------+ + PCP | Unavailable | + +------+ + Encounter Details +--------+ + + + + | Date | Type | Department | Care Team | Description | +--------+ + + + + | 08/22/ | Hospital | [facility] | | | | 2008 | Encounter | [facility] | | | | | | CENTER [address] | | | | | | [place] | | | | | | [address] | | | | | | [phone] | | | +--------+ + + + [...]
--- OUTSIDE RECORDS SUMMARY | ~2020-05-22 | XMS | Encounter Summary ---
Demographics + + + | Address | [address] | | | [place] [address] | + + + | Home Phone | | + + + | Preferred Language | Unknown | + + + | Marital Status | | + + + | Cheondoism Affiliation | CHR | + + + [...] Team Providers + +------+ + | Care Supervisor Money Room Name | Role | Phone | + +------+ + | Bebeto White MD | PCP | | + +------+ + Encounter Details +--------+ + + + + | Date | Type | Department | Care Team | Description | +--------+ + + + + | 10/22/ | Ancillary | Registration [id number] | Sonido Hicks, | | | 2004 | Registratio | [facility] | [address] | | | | n | Dario Mailcode: [id number] | [place], [place] | | | | | [place], [place] | [address] | | | | | [address] | | | | | | [phone] | | | +--------+ + + + [...] + | CORTISOL, SERUM | Routin | 10/22/2004 | | Results for this | | | e | 9:53 AM | | procedure are in the | | | | PST | | results section. | + +--------+ + + + | ACTH, PLASMA | Routin | 10/22/2004 | | Results for this | | | e | 9:23 AM | | procedure are in the | | | | PST | | results section. | + +--------+ + + + | CORTISOL, SERUM | Routin | 10/22/2004 | | Results for this | | | e | 9:23 AM | | procedure are in the | | | | PST | | results section. | + +--------+ + + + documented in this encounter Results CORTISOL, SERUM (10/22/2004 9:53 AM PST) + +--------+ + + + | Component | Value | Ref Range | Performed | Pathologist | | | | | At | Signature | + +--------+ + + + | CORTISOL, | 27 (H) | 5 - 23 ug/dl | | | | TOTAL SERUM | | | | | + +--------+ + + + | TIME | 30MIN | Hrs:mins | | | + +--------+ + + + + + | Specimen [...] | + + + + + | [facility] | [address] | [place] [address] | | | LABORATORY | | | | + + + + + ACTH (10/22/2004 9:23 AM PST) + + + + + + | Component | Value | Ref Range | Performed | Pathologist | | | | | At | Signature | + + + + + + | ACTH,PLASMA | 11Comment: Test | 9 - 52 pg/mL | | | | | performed by [facility] | | | | | | [facility] | | | | | | Laboratories. | | | | + + + + + + | TIME | BASAL | Hrs:mins | | | + + + + + + + + | Specimen | + + | | + + + + + + + | Performing | Address | City/State/Zipcode | Phone Number | | Organization | | | | + + + + + | [facility] | [address] | [place] [address] | | | LABORATORY | | | | + + + + + CORTISOL, SERUM (10/22/2004 9:23 AM PST) + +-------+ + + + | Component | Value | Ref Range | Performed | Pathologist | | | | | At | Signature | + +-------+ + + + | CORTISOL, | 15 | 5 - 23 ug/dl | | | | TOTAL SERUM | | | | | + +-------+ + + + | TIME | BASAL | Hrs:mins | | | + +-------+ + + [...] | + + + + + | [facility] | [address] | [place] [address] | | | LABORATORY | | | | + + + + + documented in this encounter Visit Diagnoses Not on filedocumented in this encounter"
--- OUTSIDE RECORDS SUMMARY | ~2020-05-22 | XMS | Encounter Summary ---
Demographics + + + | Address | [address] | | | [place] [address] | + + + | Home Phone | | + + + | Preferred Language | Unknown | + + + | Marital Status | | + + + | Pentecostal Affiliation | CHR | + + + | Race | White | + + + | Ethnic Group | Not or | + + + Author + + + | Author | [facility] | + + + | Organization | [facility] | + + + | Address | Unknown | + + + | Phone | Unavailable | + + + Support + + +---------+ + | Name | Relationship | Address | Phone | + + +---------+ + | Hans Grissom | ECON | Unknown | | + + +---------+ + Care Team Providers + +------+ + | Care Hospital Clerk Name | Role | Phone | + +------+ + | No Pcp Per Patient | PCP | Unavailable | + +------+ + Encounter Details +--------+ + + + + | Date | Type | Department | Care Team | Description | +--------+ + + + + | 01/03/ | Cardiovascular Radiologic Technologist | Otolaryngology | Ashleigh Negrete, | | | 2010 | | Adult General | MD [address] | | | | | Services at [facility] | [facility] | | | | | [address] | [place], [place] | | | | | Loop Physician's | [address] | | | | | Lizzy, 2nd floor | [phone] | | | | | [place], [place] | | | | | | [address] | | | | | | [phone] | | | +--------+ + + + [...]
--- OUTSIDE RECORDS SUMMARY | ~2020-05-22 | XMS | Encounter Summary ---
Demographics + + + | Address | [address] | | | [place] [address] | + + + | Home Phone | | + + + | Preferred Language | Unknown | + + + | Marital Status | Unknown | + + + | Methodist Affiliation | Unknown | + + + | Race | White | + + + | Ethnic Group | Unknown | + + + Author + + + | Author | [facility] | | | and [facility] | + + + | Organization | [facility] | | | and [place] | + + + | Address | Unknown | + + + | Phone | Unavailable | + + + Care Team Providers + +------+ + | Care Data Designer Name | Role | Phone | + [...] Provider Unknown | | | | | [place], [place] | [phone] | | | | | [address] | | | | | | [phone] | | | +--------+ + + + [...]
--- OUTSIDE RECORDS SUMMARY | ~2020-05-22 | XMS | Encounter Summary ---
Demographics + + + | Address | [address] | | | [place] [address] | + + + | Home Phone | | + + + | Preferred Language | Unknown | + + + | Marital Status | Unknown | + + + | Adventism Affiliation | Unknown | + + + | Race | White | + + + | Ethnic Group | Unknown | + + + Author + + + | Author | [facility] | | | and [facility] | + + + | Organization | [facility] | | | and [place] | + + + | Address | Unknown | + + + | Phone | Unavailable | + + + Care Team Providers + +------+ + | Care Cell Plasterer Name | Role | Phone | + +------+ + PCP | Unavailable | + +------+ + Encounter Details +--------+ + + + + | Date | Type | Department | Care Team | Description | +--------+ + + + + | 10/06/ | Hospital | [facility] | Dhruv Horan | | | 2001 - | Encounter | [facility] | [place] [phone] | | | | | AND DELIVERY [address] | (Fax) | | | 10/08/ | | [address] | | | | 2001 | | [place], [place] | | | | | | [address] | | | | | | [phone] | | | +--------+ + + + [...]
--- OUTSIDE RECORDS SUMMARY | ~2020-05-22 | XMS | Encounter Summary ---
Demographics + + + | Address | [address] | | | [place] [address] | + + + | Home Phone | | + + + | Preferred Language | Unknown | + + + | Marital Status | Unknown | + + + | Denominational Affiliation | Unknown | + + + | Race | White | + + + | Ethnic Group | Unknown | + + + Author + + + | Author | [facility] | | | and [facility] | + + + | Organization | [facility] | | | and [place] | + + + | Address | Unknown | + + + | Phone | Unavailable | + + + Care Team Providers + +------+ + | Care Business Intelligence Reporting Analyst Name | Role | Phone | + +------+ + PCP | Unavailable | + +------+ + Encounter Details +--------+ + + + + | Date | Type | Department | Care Team | Description | +--------+ + + + + | 09/18/ | [facility] | [facility] | Dhruv Horan | | | 2001 | Encounter | [facility] | [place] [phone] | | | | | AND DELIVERY [address] | (Fax) | | | | | [address] | | | | | | [place], [place] | | | | | | [address] | | | | | | [phone] | | | +--------+ + + + [...]
[~2020-05-22 14:13] MED LIST: SYNTHROID137 MCG PO
[2020-05-22] MEDS ORDERED: MULTIVITAMIN1 EACH PO (14:45)
[2020-05-22] MEDS ORDERED: TYLOPHEN500 MG PO (14:46)
--- NOTE | 2020-05-22 18:09 | NUR ---
05/22/20 1809 [place] Bruno 1701 PT ARRIVED IN PACU SLEEPY WITH NO C/O'S. 1704 BP ELEVATED. METOPROLOL GIVEN IVP BY ANESTHESIA. 1713 NO CHANGE IN ELEVATED BP. LABETOLOL GIVEN IVP BY ANESTHESIA. 1716 SECOND DOSE OF LABETOLOL GIVEN BY ANESTHESIA. 1730 DIASTOLIC BP BELOW 100. ANESTHESIA OK WITH BP AT THIS TIME. 1736 PT C/O FEELING ANXIOUS. NEW ORDERS RECEIVED. VERSED 2MG GIVEN IVP. 1745 PT RELAXED. NO C/O'S ABD PAIN. TC TO LAB AND T4 AND TSH ADDED TO LABS DRAWN PRIOR TO SURGERY. 1755 TO ROOM 122 WITH SPOUSE AT BEDSIDE. REPORT GIVEN TO LO.
--- NOTE | 2020-05-22 18:58 | NUR ---
THIS RN TO CHECK ON PT. PT APPEARS TO BE MORE AWAKE AT THIS TIME AND STATES THAT SHE HAS NO PAIN OR NAUSEA AT THIS TIME. PT HAS 3 LAP SITES THAT ARE CLEAN/DRY/INTACT, COVERED BY STERI STRIPS AND BANDAIDS.
--- NOTE | 2020-05-22 19:53 | NUR ---
REPORT RECEIVED FROM DAY SHIFT RN. PT LYING IN BED ALERT AND ORIENTED. DENIES PAIN. C/O SLIGHT NAUSEA BUT DID NOT WANT PRN. IVF INFUSING. NO NEEDS AT THIS TIME. WHITE BOARD UPDATED. CALL LIGHT IN REACH. FAMILY IN ROOM.
--- NOTE | 2020-05-22 21:45 | NUR ---
EVENING ASSESSMENT COMPLETE. SCHEDULED MEDS ADMINISTERED PER EMAR. IV ABX INFUSING. PT DENIES PAIN. CONTINUES TO HAVE MILD NAUSEA BUT REFUSES PRN. PT C/O INCREASING ANXIETY. DR. LAGUNA NOTIFIED OF ANXIETY AND VITAL SIGNS. NEW TELEPHONE ORDERS RECEIVED. VERIFIED WITH READ BACK METHOD. PRN FOR ANXIETY ADMINISTERED. LAP SITES X 3 CDI. NO REDNESS OR DRAINAGE NOTED. ABD SOFT. PT DENIES VAGINAL DRAINAGE. TONY PAD IN PLACE. EVANS PATENT WITH QS CLEAR YELLOW URINE. CLEAR LIQUIDS PROVIDED. PT DENIES FURTHER NEEDS. IN ROOM. CALL LIGHT IN REACH.
--- NOTE | 2020-05-22 23:01 | NUR ---
PT REPORTS SHE IS FEELING "A LITTLE BETTER". REPORTS SHE IS HAVING SOME ABDOMINAL "ACHING" AT LAP SITES AND MILD NAUSEA BUT REFUSES PRN FOR BOTH. ICE PACK PROVIDED. EYE MASK AND EAR PLUGS PROVIDED. LIGHTS TURNED OFF. PT DENIES FURTHER NEEDS. CALL LIGHT IN REACH.
--- NOTE | 2020-05-23 01:53 | NUR ---
VS AND I&O COMPLETE. PT REPORTS PAIN IS "BETTER". STILL C/O MILD NAUSEA, FEELS HUNGRY. PUDDING AND CRACKERS PROVIDED. IV ABX INFUSING. OFFERED TO ASSIST PT TO WALK OR STAND AT BED SIDE. PT WOULD LIKE TO WAIT UNTIL AFTER SHE EATS. WILL REAPPROACH AFTER SNACK.
--- NOTE | 2020-05-23 02:56 | NUR ---
PT CLFITON FULL LIQ AND CRACKERS WELL. PT WAS ABLE TO AMBULATE IN ROOM WITH SBA. REPORTS FEELING "SHAKY" UPON STANDING. TONY PAD CHANGED. SMALL AMOUNT OF PINK DRAINAGE NOTED. PT BACK TO BED, CLIFTON WELL. NO INCREASE OF PAIN OR NAUSEA REPORTED WITH AMBULATION. WITH PT'S ANXIETY SHE HAS NOT WANTED TO WEAR SCD'S. PRN ADMINISTERED FOR GAS PAIN. FRESH ICE PACK TO ABD.
--- NOTE | 2020-05-23 03:18 | NUR ---
IVF SL AT THIS TIME. EVANS EMPTIED OF 1050 ML CLEAR YELLOW URINE. PT DENIES NAUSEA AND IS CLIFTON PO INTAKE WELL.
--- NOTE | 2020-05-23 05:50 | NUR ---
CALL LIGHT ANSWERED. PT REPORTS HAVING ANXIETY ATTACK, REQUESTING PRN. DR. LAGUNA NOTIFIED. NEW TELEPHONE ORDERS RECEIVED VERIFIED WITH READ BACK METHOD.
--- NOTE | 2020-05-23 06:42 | NUR ---
PT REPORTS SHE IS FEELING "MUCH BETTER". NATHAN VILLARREAL. PT CLIFTON WELL. ASSISTED WITH TONY CARE. CLEAN PAD IN PLACE. MENU PROVIDED FOR BREAKFAST ORDER. IN ROOM. NO FURTHER NEEDS AT THIS TIME. CALL LIGHT IN REACH.
--- NOTE | 2020-05-23 07:30 | NUR ---
THIS RN RECEIVED REPORT FROM SHIRLEY BLANCHARD. PT DOES NOT WANT BEDSIDE REPORT AT THIS TIME DUE TO ANXIETY OF BEING IN HOSPITAL.
--- NOTE | 2020-05-23 09:00 | NUR ---
THIS RN IN ROOM WITH [facility] SOCIAL SCIENCE RESEARCH ASSISTANT ANGEL TO GIVE PT MORNING MEDS AND WATERS MORNING ASSESSMENT. PT APPEARS TO BE ANXIOUS AND NERVOUS WITH STAFF IN ROOM. PT STATES THAT SHE IS HAVING SOME PAIN BUT IT IS TOLERABLE.
[2020-05-23] MEDS ORDERED: DOXYCYCLINE HY100 MG PO (10:34)
[2020-05-23] MEDS ORDERED: DIFLUCAN150 MG PO (10:35)
[2020-05-24] MEDS ORDERED: HYDROXYZINE HCL25 MG PO (08:41)
[2020-05-24] MEDS ORDERED: ATIVAN1 MG PO (08:41)
--- NOTE | 2020-05-26 13:43 | PATH ---
[facility] [address], [place] [address] Signed SPECIMEN(S): A R FALLOPIAN TUBE, ECTOPIC SPECIMEN SOURCE: A. R FALLOPIAN TUBE, ECTOPIC CLINICAL HISTORY: Pre: Ectopic pg, right adnexal mass, bleeding, pelvic pain. Post: Laparoscopic right salpingectomy, evaluation of hemoperitoneum. FINAL PATHOLOGIC DIAGNOSIS: Fallopian tube, right, possible POC, salpingectomy: - Immature chorionic villi admixed with clotted blood, consistent with products of conception. - Fallopian tube with reactive changes and focal polarizable foreign material within fallopian tube wall. - See comment. COMMENT: The history of a bilateral fallopian tube segmental excision for sterilization in 2008 is noted. The specimen was entirely submitted for histologic examination. Sections demonstrate fallopian tube with focal serosal reactive changes and scattered, partially necrotic immature chorionic villi admixed with the clotted blood separate from the fallopian tube. No implantation side is identified within the fallopian tube and no tissue is identified. Focal foreign material with foreign body type giant cell reaction is present within the fallopian tube wall and is evidence of the prior surgical procedure. Of note, the slide for the prior tubal segmental excision from 2008 ([id number]) was reviewed and a complete cross-section of each tube is confirmed. As part of [facility]' Quality Improvement Program, this case was reviewed by another member of our pathology staff. NAL:cml:C2NR MICROSCOPIC EXAMINATION: Histologic sections of all submitted blocks are examined by light microscopy. These findings, together with the gross examination, support the pathologic diagnosis. GROSS DESCRIPTION: The specimen, labeled "SW," and designated on the requisition "right tube PATIENT NAME: ZEINA QUILES PATHOLOGY DATE OF : 78 REPORT #: [id number] PHYSICIAN: LEONARDO PATHOLOGY PCP: NO PRIMARY CARE PHYSICIAN REPORT IS CONFIDENTIAL AND NOT TO BE RELEASED WITHOUT AUTHORIZATION [facility] [address], [place] [address] Signed possible POC," is received in formalin and consists of a segment of brown-wilkins, slightly fragmented fimbriated fallopian tube (3.4 cm in length x1.0 cm in diameter), and a portion of red-brown clot (6.7 x 4.2 x 1.9 cm in aggregate). Warehouse Selector sections are submitted cassettes (A1-A3). AC (under the direct supervision of a pathologist) Additional sections are submitted as follows at the request of Dr. George: (A4) remainder of fallopian tube (A5-A6) clot with possible filled/soft tissue AC (under the direct supervision of a pathologist) The Gross Description was prepared using a voice recognition system. The report was reviewed for accuracy; however, sound-alike word errors, addition and/or deletions may occur. If there is any question about this report, please contact Client Services. PERFORMING LABORATORY: The technical component was performed by [facility], [address] [place] [address] (Barkeep: Barbra Cox MD; CLIA# [id number]). [facility] [address] [address] (CLIA# [id number]). Diagnostician: Gretchen George MD Pathologist Electronically Signed 05/26/2020 Copies: ~ PATIENT NAME: ZEINA QUILES PATHOLOGY DATE OF : [birth year] REPORT #: [id number] PHYSICIAN: LEONARDO PATHOLOGY PCP: NO PRIMARY CARE PHYSICIAN REPORT IS CONFIDENTIAL AND NOT TO BE RELEASED WITHOUT AUTHORIZATION
--- NOTE | 2020-05-28 21:09 | OR ---
[facility] [address] [place] [address] Signed DATE OF OPERATION: 05/22/2020 SURGEON: Liss Macias DO MENTAL HEALTH WORKER: Brandon Ga MD PREOPERATIVE DIAGNOSIS: Ectopic . POSTOPERATIVE DIAGNOSES: Ectopic , intraabdominal adhesions, hemoperitoneum. ANESTHESIA: General. TOTAL BLOOD LOSS: 100 mL. LINES: None. DRAINS: Ellison. SPECIMENS: Right fallopian tube, blood clots, possible products of conception. FINDINGS: Dense intraabdominal adhesion at midline. Fundal uterus adherent to omentum, bowel, left adnexa, and left pelvic sidewall. Large blood clot present in the right adnexa. Small approximately 1 cm dilation of right fallopian tube in the distal portion near its fimbriated end. Normal-appearing right ovary. Moderate amount watery dark red blood in posterior cul-de-sac. Normal-appearing gallbladder and liver margin. Normal-appearing appendix. INDICATIONS FOR PROCEDURE: Electronically Signed By: LISS MACIAS DO 05/28/20 2109 PATIENT NAME: ZEINA QUILES OPERATIVE REPORT DATE OF : 78 REPORT #: [id number] PHYSICIAN: LISS MACIAS DO PCP: NO PRIMARY CARE PHYSICIAN REPORT IS CONFIDENTIAL AND NOT TO BE RELEASED WITHOUT AUTHORIZATION [address] [address] Signed The patient is a 39-year-old female, prior history significant for tubal ligation at the time of her 4th and more recently, 8 years ago, a reversal of the tubal ligation. She did not become initially after her tubal ligation and was not on contraception, under the belief that she would not be able to conceive again. Her LMP was 04/01/2020. She did have a positive test at home and called the office for close followup. Quantitative HCG steff inappropriately initially over 48 hours and inappropriately slow elevation persisted over the next 72 hours. Initial ultrasound was negative for intrauterine . No signs of ectopic were seen at that time on 05/16/2020. Ultrasound was repeated today after the patient was seen in the office and pelvic exam was significant for tenderness on cervical palpation, moderate vaginal bleeding, and tenderness to palpation in the right adnexal region. Ultrasound was significant for a 1.3 cm cyst in the right adnexa with surrounding blood flow. She was consented for a diagnostic laparoscopy with possible salpingectomy, possible oophorectomy. Risks, benefits, and alternatives were discussed and she elected to proceed. PROCEDURE IN DETAIL: The patient was taken to the operating room where she was placed under general anesthesia and positioned in dorsal lithotomy position. She was prepped and draped in the normal sterile fashion. Ellison catheter was placed and sponge stick was placed in the vagina for uterine manipulation. Surgeon's gloves were changed and attention was turned to the abdomen. Marcaine 0.5% with epi was injected in the infraumbilical fold. Scalpel was used to create a 1.5 cm horizontal incision in the infraumbilical fold. This was carried down to the fascia with Metzenbaum scissors in a Gentry technique. Once exposed, the fascia was grasped with hemostats. On the inferior margin a stitch with 0 Vicryl was placed and ends were grasped with a hemostat, and in similar fashion on the superior margin, fascia was grasped, single suture was placed and hemostats used to grasp the ends. The Gentry trocar was then placed within the abdomen, secured in place with its superior and inferior stitches. A camera was inserted. The patient was placed in Trendelenburg to facilitate visualization of the pelvis and the pelvis was surveyed with findings as noted above. A 5 mm incision was made in the right lateral abdomen under local anesthesia. A 5 mm trocar was inserted under direct visualization. In the same manner, this was repeated on the left. Pelvis was suction/ irrigated. Large blood clots surrounding the right adnexa was placed above the uterus for collection later. The right tube was grasped and elevated. Using a LigaSure device, the mesosalpinx was cauterized and cut parallel to the tube from the fimbriated end to the cornua, thus freeing the tube, which was removed and submitted to Pathology. Excellent hemostasis was noted. The large area of clotted blood with possible tissue components was then Electronically Signed By: LISS MACIAS DO 05/28/202108 PATIENT NAME: ZEINA QUILES OPERATIVE REPORT DATE OF : 78 REPORT #: [id number] PHYSICIAN: LISS MACIAS DO PCP: NO PRIMARY CARE PHYSICIAN REPORT IS CONFIDENTIAL AND NOT TO BE RELEASED WITHOUT AUTHORIZATION [facility] [address] [place] [address] [place] [address] Signed placed in a size 10 EndoCatch bag, which was removed through the Gentry trocar site. Abdomen was copiously suction/irrigated, and re-inspected. It was noted to be hemostatic. The instrumentation was removed from the abdomen. Pneumoperitoneum was evacuated. Fascia of the infraumbilical incision was closed with 0 Vicryl in a running fashion. Skin was closed with 4-0 Monocryl and top dressed with Steri-Strips and Band-Aids. The patient tolerated the procedure well. Lap and sponge counts were correct. The patient was taken to recovery with plans to admit to observation status overnight. IV antibiotic therapy was ordered for possible PID, given her significant adhesions within the pelvis and concerning cervical tenderness on exam earlier in the day. Repeat HCG was ordered for the morning. Liss Macias DO EMZ/MODL /[id number] Copies: ~ Electronically Signed By: LISS MACIAS DO 05/28/20 2109 PATIENT NAME: ZEINA QUILES OPERATIVE REPORT DATE OF : [birth year] REPORT #: [id number] PHYSICIAN: LISS MACIAS DO PCP: NO PRIMARY CARE PHYSICIAN REPORT IS CONFIDENTIAL AND NOT TO BE RELEASED WITHOUT AUTHORIZATION
== END 2020-05-23 11:20 | disposition home or self-care (01) ==
LOC: DS 14:13 → MS 17:55 → DS 17:56 → MS 17:57
PROVIDERS: ADMIT Obstetrics & Gynecology; ATTEND Obstetrics & Gynecology
PROC: 0UT54ZZ Resection of Right Fallopian Tube, Percutaneous Endoscopic Approach (ICD-10-PCS; 2020-05-22)
PROC: 10T24ZZ Resection of Products of Conception, Ectopic, Percutaneous Endoscopic Approach (ICD-10-PCS; principal; 2020-05-22 14:30)
DX: O00.101 Right tubal pregnancy without intrauterine pregnancy (principal); K66.0 Peritoneal adhesions (postprocedural) (postinfection); K66.1 Hemoperitoneum; Z98.51 Tubal ligation status; E03.9 Hypothyroidism, unspecified; R03.0 Elevated blood-pressure reading, without diagnosis of hypertension; Z98.890 Other specified postprocedural states
CPT/HCPCS: 00840; 36415; 80048; 80053; 84439; 84443; 84702; 85025; 86850; 86900; 86901; 96374; 96375; 96376; G0378; J0330; J0694; J1100; J1885; J2060; J2250; J2270; J2405; J2704; J2765; J3010; J7121

== ENCOUNTER 2020-05-24 07:43 | Emergency (ER) | payer OTHER ==
[~2020-05-24] VITALS: Ht 162.6 cm; Wt 70.3 kg
--- OUTSIDE RECORDS SUMMARY | ~2020-05-24 | XMS | Encounter Summary ---
Demographics + + + | Address | [address] | | | [place] [address] | + + + | Home Phone | | + + + | Preferred Language | Unknown | + + + | Marital Status | Unknown | + + + | Taoist Affiliation | Unknown | + + + | Race | White | + + + | Ethnic Group | Unknown | + + + Author + + + | Author | [facility] | | | and [facility] | + + + | Organization | [facility] | | | and [place] | + + + | Address | Unknown | + + + | Phone | Unavailable | + + + Care Team Providers + +------+ + | Care Clutch Assembler Name | Role | Phone | + +------+ + PCP | Unavailable | + +------+ + Encounter Details +--------+ + + + + | Date | Type | Department | Care Team | Description | +--------+ + + + + | 01/18/ | Hospital | [facility] | Conversion | | | 2012 | Encounter | [facility] | Transaction, | | | | | [address] | Provider Unknown | | | | | [address] [place], [place] | [phone] | | | | | [address] | | | | | | [phone] | Priti He | | | | | | MD [address] | | | | | | [address] | | | | | | [place] [address] | | | | | | [phone] | | | | | | | | +--------+ + + + [...] + + documented as of this encounter Medications at Time of Discharge + + + +---------+ + + | Medication | Sig | Dispensed | Refills | Start | End Date | | | | | | Date | | + + + +---------+ + + | levothyroxine | Take 137 mcg by | | 0 | 01/19/20 | | | (SYNTHROID) 137 MCG | mouth daily. | | | 13 | | | tablet | | | | | | + + + +---------+ + + documented as of this encounter Plan of Treatment Not on filedocumented as of this encounter Visit Diagnoses Not on filedocumented in this encounter"
--- OUTSIDE RECORDS SUMMARY | ~2020-05-24 | XMS | Encounter Summary ---
Demographics + + + | Address | [address] | | | [place] [address] | + + + | Home Phone | | + + + | Preferred Language | Unknown | + + + | Marital Status | Unknown | + + + | Scientology Affiliation | Unknown | + + + | Race | White | + + + | Ethnic Group | Unknown | + + + Author + + + | Author | [facility] | | | and [facility] | + + + | Organization | [facility] | | | and [place] | + + + | Address | Unknown | + + + | Phone | Unavailable | + + + Care Team Providers + +------+ + | Care Fiberglass Boat Maker Name | Role | Phone | + +------+ + PCP | Unavailable | + +------+ + Encounter Details +--------+ + + + + | Date | Type | Department | Care Team | Description | +--------+ + + + + | 08/23/ | Emergency | [facility] | Ramirez Ulloa, | Anxiety State, | | 2008 - | | MEDICAL CENTER | MD [address] [facility] | Unspecified | | | | EMERGENCY CENTER | [place], [place] | | | 08/24/ | | [address] | [address] | | | 2008 | | [place], [place] | | | | | | [address] | | | | | | [phone] | | | +--------+ + + + [...] filedocumented as of this encounter Visit Diagnoses + + | Diagnosis | + + | Anxiety state, unspecified | + + documented in this encounter"
--- OUTSIDE RECORDS SUMMARY | ~2020-05-24 | XMS | Encounter Summary ---
Demographics + + + | Address | [address] | | | [place] [address] | + + + | Home Phone | | + + + | Preferred Language | Unknown | + + + | Marital Status | | + + + | Yarsanism Affiliation | CHR | + + + | Race | White | + + + | Ethnic Group | Not or | + + + Author + + + | Author | [facility] | + + + | Organization | [facility] | + + + | Address | Unknown | + + + | Phone | Unavailable | + + + Support + + +---------+ + | Name | Relationship | Address | Phone | + + +---------+ + | Hans Grissom | ECON | Unknown | | + + +---------+ + Care Team Providers + +------+ + | Care Target Worker Name | Role | Phone | + +------+ + | No Pcp Per Patient | PCP | Unavailable | + +------+ + Reason for Visit + +--------+ + | Reason | Onset | Comments | | | Date | | + +--------+ + | Pre-operative | 01/01/ | | | evaluation | 2010 | | + +--------+ + Encounter Details +--------+ + + + + | Date | Type | Department | Care Team | Description | +--------+ + + + + | 01/01/ | Telephone-S | Preoperative | Phone, [phone] | Pre-operative | | 2010 | cheduled | Medicine Clinic at | [facility] | evaluation | | | | [address]th Floor Day | [address] [place], [place] | | | | | Stay [address] | [address] | | | | | [address] | | | | | | Mailcode: [id number] | | | | | | [facility] | | | | | | [address] [place], [place] | | | | | | [address] | | | | | | [phone] | | | +--------+ + + + [...] Comments | + + +---------+ + | Not Asked | | | | + + +---------+ + + + + | Sex Assigned at | Date Recorded | | | | + + + | Not on file | | + + + documented as of this encounter Patient Instructions Patient Instructions Wendie Roman RN - 01/01/2011 1:14 PM PDTPREOPERATIVE INSTRUCTIONS Do not eat or drink anything after midnight the night before surgery. TAKE the following medications with a sip of water on the morning of surgery: LORazepam 2 mg Oral Tablet, Take 2 mg by mouth every four hours as needed. Do NOT take the following medications on the morning of surgery: multivitamin Oral Tablet, Take 1 Tab by mouth once daily. Do not take any Aspirin, vitamin E or non-steroidal anti-inflammatory (NSAIDs i.e. Advil , Aleve, Ibuprofen) or herbal supplements seven days prior to your surgery. These drugs may interfere with normal blood clotting and may cause excessive bleeding and bruising during or after the surgery. Please see the list below for more products that contain Aspirin, Ibupro fen, or Vitamin E If you are taking Coumadin (warfarin), Plavix or any other blood thinners please let you r surgical team know as medication changes will be necessary. If you need a pain medication for general purposes, use Tylenol as directed. If you are in doubt about any medications that you are taking, please contact our office . AVOID THESE MEDICATIONS FOR 7 DAYS BEFORE SURGERY PRODUCTS CONTAINING ASPIRIN OR NON-STEROIDAL ANTI-INFLAMMATORY DRUGS (NSAIDs) Advil, Aleve, [place], Anacin, Arthopan, Ascriptin, Aspergum, Aspirin with and without codeine, [place] aspirin. Bufferin, Butalbital, Butazone, Cataflam, Clinoril, Co-Advil, Coges ic, Darvon, Daypro, Diclofenac, Diflunisal, Dipyridamole, Disalcid, Sam s, Dolene, Dolobi d, Easpirin, Etodolac, Feldene, Fenoprofen, Ibuprofen, Indocin, Indomethacin, Lodine, Meclof enamate, Menadol, Meprobamate/Aspirin, Midol, Motrin and Motrin IB, Nabumetone, Naproxen, No rgesic, Nuprin, Nytol, Nyquil, Orudis, Oruvail, Oxycodone and aspirin, Oxyphenbutazone, Pamp rin, Pepto Bismol, Percodan, Persantine, Phenylbutazone, Piroxicam, Propoxyphene, Relafen, R obomol, Rufen, Sine-aid, [place] s cold tablets, Sulindac, [place]win, Tolectin, Triaminici n, Trigesic, Voltaren, Zorprin. OTHER PRODUCTS WHICH MAY PROMOTE BLEEDING Vitamin E, Gingko Biloba Important Guidelines Please do not to shave the surgical site at home before the surgery Do not smoke, drink alcohol or use recreational drugs for 24 hours before your surgery Do not eat any hard candy or chew gum after midnight the night before your surgery. Watch for any change in your health condition. Let your surgeon know right away if you do not feel well. Please remember to brush your teeth the night before and the morning of your procedure. Do not wear makeup, perfume, lotions or powder. Remove any nail burmese from at least one fingernail. Do not wear any jewelry to the hospital. Wear loose, comfortable clothing. Bring the case and solution for your contact lenses or wear your glasses. Leave all your valuables at home. Allow enough travel time so you re not late for your check in for surgery. Preoperative Hygiene Take a bath or shower and remember to shampoo your hair using your usual hair product be fore your arrival at the hospital. HIBICLENS GUIDE TO GENERAL SKIN CLEANSING AT HOME BEFORE SURGERY General Skin Cleansing Instructions: Hibiclens is not to be used on the head or face, keep out of the eyes, ears and mouth. Hibiclens is not to be used in the genital area. Hibiclens should not be used if you are allergic to chlorhexidine gluconate or any other in gredients in this preparation. *See Hibiclens label for full product information and precautions. When you bathe or shower the night before your surgery: If you plan to wash your hair, do so with your regular shampoo. Then rinse hair and body th oroughly to remove any shampoo residue. Wash your face with your regular soap or water only. Thoroughly rinse your body with warm water from neck down. Use Hibiclens as you would any other liquid soap. Please do not put the Hibiclens on a wash cloth, apply directly to the skin and wash gently. Apply the minimum amount of Hibiclens n ecessary to cover the skin. Leave the Hibiclens on your skin for 1 minute, then rinse off. Rinse thoroughly with warm water. Do not use your regular soap after applying and rinsing Hibiclens. When using Hibiclens for a second day in a row (morning of surgery, as soon as you wake up) : Shower/bathe again using Hibiclens in the same method as described above. Do not apply any lotions, deodorants, powders or perfumes to the body areas that have been cleaned with Hibiclens. Pain management after surgery Following surgery, at regular intervals, your nurse will ask you to rate your pain on a scale of 0-10 (0 is no pain and 10 is the worst pain you can imagine). A variety of pain management strategies may be appropriate, such as intravenous medicati ons, oral medications, peripheral nerve bocks or epidural catheters that can deliver local a nesthetic to cover the area of your surgical incision. Please discuss this with your anesth esiologist to receive additional information about what might be appropriate for you. The goal for pain control therapy is to be comfortable enough to change your position, c ough and take deep breaths. You will be asked to do such activities to help prevent complic ations. Preventing post op complications Use an incentive spirometer or peep breathe to keep your lungs working properly an d to help prevent respiratory complications. It helps you take long, deep breaths. Use it at least once every hour while you are awake. Leg and feet exercises will maintain good circulation and help prevent blood clots in yo ur legs. Sometimes your doctor will order air compression stockings. Compressed air helps the circulation in your legs. Walking and moving will help stimulate normal circulation and deep breathing. After you r surgery, your nurse may ask you to sit, stand or walk. Surgery Check in Locations Day Stay Unit [phone], [facility], fourth floor Room [address] [facility] Day Stay [phone], [facility], fourth floor Admitting [phone], [facility], ninth floor lobby [facility] Surgery Unit [phone], [facility], sixth floor Surgery Check in Time Check-in times for Hospital Admissions are not available until the day prior to surgery. So meone from your surgeon's office or the hospital will contact you with your check in time. I f you do not hear from anyone by 3:00 PM please call your surgeons' office for [id number] . Going Home Your surgeon will decide when you are medically ready to go home. If you are released to go home on the same day as your procedure/surgery please note the following: You will not be competent to drive and will require someone else to transport y ou home on the day of discharge since pain medications and physical activity restrictions li mary your ability to drive safely. It is also required that you have someone assist you and look after you on the first night after you have undergone regional blocks, deep sedation, a nd/or general anesthesia. If you have questions or concerns after you go home, call your doctor s office. If it is after office hours, call the [facility] folder taper operator at [phone] and ask them to page your doc tor. You will require transportation home on the day of discharge. Pain medications and physi abdoulaye activity restrictions may limit your ability to drive safely. It is also recommended th at you have someone assist you and look after you on the first night after you are released to go home. documented in this encounter Miscellaneous Notes Telephone Encounter - Wendie Roman RN - 01/01/2011 1:13 PM PDTPAT phone interview comp leted. documented in th is encounter Plan of Treatment Not on filedocumented as of this encounter Visit Diagnoses Not on filedocumented in this encounter"
--- OUTSIDE RECORDS SUMMARY | ~2020-05-24 | XMS | Encounter Summary ---
Demographics + + + | Address | [address] | | | [place] [address] | + + + | Home Phone | | + + + | Preferred Language | Unknown | + + + | Marital Status | | + + + | Caodaism Affiliation | CHR | + + + | Race | White | + + + | Ethnic Group | Not or | + + + Author + + + | Author | [facility] | + + + | Organization | [facility] | + + + | Address | Unknown | + + + | Phone | Unavailable | + + + Support + + +---------+ + | Name | Relationship | Address | Phone | + + +---------+ + | Hans Grissom | ECON | Unknown | | + + +---------+ + Care Team Providers + +------+ + | Care Drum Sander Setter Name | Role | Phone | + +------+ + | Bebeto White MD | PCP | | + +------+ + Encounter Details +--------+ + + + + | Date | Type | Department | Care Team | Description | +--------+ + + + + | 10/14/ | Ancillary | Registration [id number] | Son[place], | | | 2004 | Registratio | [facility] | [address] | | | | n | Dario Mailcode: [id number] | [place], [place] | | | | | [place], [place] | [address] | | | | | [address] | | | | | | [phone] | | | +--------+ + + + [...] | + +--------+ + + + | MRI BRAIN WWO | Routin | 10/14/2004 | | Results for this | | CONTRAST | e | 8:58 PM | | procedure are in the | | | | PST | | results section. | + +--------+ + + + documented in this encounter Results MRI BRAIN WWO CONTRAST (10/14/2004 8:58 PM PST) + + + + + + | Component | Value | Ref Range | Performed | Pathologist | | | | | At | Signature | + + + + + + | MR BRAIN | Radiologist 1: TEAGAN, | | | | | STEPHANIE | MINERVA APARICIO OF THE | | | | | CONTRAST | BRAIN WITH AND WITHOUT | | | | | | CONTRAST: HISTORY:24 | | | | | | year old female to rule | | | | | | out benign pituitary | | | | | | neoplasm. TECHNIQUE:MRI | | | | | | evaluation of the brain | | | | | | was performed with and | | | | | | withoutgadolinium using | | | | | | the following sequences: | | | | | | sagittal T1 and | | | | | | coronalT2. In addition | | | | | | high-resolution coronal | | | | | | T1 images were | | | | | | obtainedthrough the | | | | | | pituitary as well post | | | | | | Gadolinium coronal T1 | | | | | | andsagittal T1 images | | | | | | and dynamic study. No | | | | | | prior studies | | | | | | areavailable for | | | | | | comparison. FINDINGS:The | | | | | | pituitary is | | | | | | unremarkable in size and | | | | | | signal; | | | | | | theneurohypophysis | | | | | | "bright spot" is | | | | | | visualized. The optic | | | | | | chiasm isunremarkable in | | | | | | size and shows no | | | | | | evidence of impingement. | | | | | | Noabnormal enhancement | | | | | | is noted. The dynamic | | | | | | study demonstrates | | | | | | noevidence of delayed | | | | | | enhancement within the | | | | | | pituitary gland. There | | | | | | is mild left sphenoid | | | | | | sinus mucosal | | | | | | thickening. | | | | | | Visualizedparanasal | | | | | | sinuses and orbits are | | | | | | otherwise unremarkable. | | | | | | IMPRESSION:No evidence | | | | | | of hypothalamic or | | | | | | pituitary abnormality. | | | | + + + + + + + + | Specimen | + + | | + + + +---------+ + + | Performing | Address | City/State/Zipcode | Phone Number | | Organization | | | | + +---------+ + + | [facility] DEPARTMENT OF | | | | | RADIOLOGY | | | | + +---------+ + + documented in this encounter Visit Diagnoses Not on filedocumented in this encounter
--- OUTSIDE RECORDS SUMMARY | ~2020-05-24 | XMS | Encounter Summary ---
Demographics + + + | Address | [address] | | | [place] [address] | + + + | Home Phone | | + + + | Preferred Language | Unknown | + + + | Marital Status | Unknown | + + + | Scientologist Affiliation | Unknown | + + + | Race | White | + + + | Ethnic Group | Unknown | + + + Author + + + | Author | [facility] | | | and [facility] | + + + | Organization | [facility] | | | and [place] | + + + | Address | Unknown | + + + | Phone | Unavailable | + + + Care Team Providers + +------+ + | Care Grocery Department Manager Name | Role | Phone | + +------+ + | Venus Bond | PCP | | + +------+ + Encounter Details +--------+ + + + + | Date | Type | Department | Care Team | Description | +--------+ + + + + | 04/14/ | Orders Only | [facility] GENERIC OP | Conversion | | | 2016 | | CONVERSION [address] | Transaction, | | | | | [address] | Provider Unknown | | | | | [place], [place] | [phone] | | | | | [address] | | | | | | [phone] | | | +--------+ + + + [...]
--- OUTSIDE RECORDS SUMMARY | ~2020-05-24 | XMS | Encounter Summary ---
Demographics + + + | Address | [address] | | | [place] [address] | + + + | Home Phone | | + + + | Preferred Language | Unknown | + + + | Marital Status | | + + + | Anabaptist Affiliation | CHR | + + + | Race | White | + + + | Ethnic Group | Not or | + + + Author + + + | Author | [facility] | + + + | Organization | [facility] | + + + | Address | Unknown | + + + | Phone | Unavailable | + + + Support + + +---------+ + | Name | Relationship | Address | Phone | + + +---------+ + | Hans Grissom | ECON | Unknown | | + + +---------+ + Care Team Providers + +------+ + | Care Repairing Calibrator Name | Role | Phone | + +------+ + | Bebeto White MD | PCP | | + +------+ + Reason for Visit +--------+--------+ + | Reason | Onset | Comments | | | Date | | +--------+--------+ + | Other | 01/16/ | needs calcium level order sent to [facility] in | | | 2010 | [place]. | +--------+--------+ + Encounter Details +--------+ + + + + | Date | Type | Department | Care Team | Description | +--------+ + + + + | 01/16/ | Telephone | Otolaryngology | Ashleigh Negrete, | Other (needs calcium | | 2010 | | Head and Neck | [address] | level order sent to | | | | Surgery Services at | [address] | [facility] in | | | | [address] | [place], [place] | [place]. ) | | | | [address] | [address] | | | | | Physician's | [phone] | | | | | [address], [address] floor | | | | | | [place], [place] | | | | | | [address] | | | | | | [phone] | | | +--------+ + + + [...] encounter Miscellaneous Notes Telephone Encounter - Rosi Aranda - 01/16/2011 10:23 AM PDTFaxedAshley sjFrancisco Javier fontenot signed by Rosi Aranda at 01/16/2011 10:23 AM PDTTelephone Encounter - Harry Danielle - 01/16/2011 10:19 AM PDTKevynjairo [place]issom [id number] Message: pt needs to have her calcium level done today. Please fax order to [facility] in [place]. LAST APPOINTMENT: 01/13/11 at 12:30 pm LAST PCP (Bebeto White MD) APPOINTMENT: No past encounter found with . NEXT APPOINTMENT: 01/23/11 at 1:30 pm NEXT PCP (Bebeto White MD) APPOINTMENT: No future appointments scheduled with . Patient's pharmacy has been verified: Yes Patient states it is ok to leave confidential message on her answering machine. documented in this encoun ter Plan of Treatment Not on filedocumented as of this encounter Procedures + +--------+ + + + | Procedure Name | Priori | Date/Time | Associated Diagnosis | Comments | | | ty | | | | + +--------+ + + + | CALCIUM, PLASMA | Routin | 01/16/2011 | | Results for this | | | e | | | procedure are in the | | | | | | results section. | + +--------+ + + + documented in this encounter Results CALCIUM, PLASMA (01/16/2011) + +-------+ + + + | Component | Value | Ref Range | Performed | Pathologist | | | | | At | Signature | + +-------+ + + + | CALCIUM | 8.8 | 8.8 - 10.2 | NON [facility] | | | | | mg/dL | LAB | | + +-------+ + + + + + | Specimen | + + | Blood - Blood | + + + +---------+ + + | Performing | Address | City/State/Zipcode | Phone Number | | Organization | | | | + +---------+ + + | NON [facility] | | | | + +---------+ + + documented in this encounter Visit Diagnoses Not on filedocumented in this encounter"
--- OUTSIDE RECORDS SUMMARY | ~2020-05-24 | XMS | Encounter Summary ---
Demographics + + + | Address | [address] | | | [place] [address] | + + + | Home Phone | | + + + | Preferred Language | Unknown | + + + | Marital Status | | + + + | Rastafarian Affiliation | CHR | + + + | Race | White | + + + | Ethnic Group | Not or | + + + Author + + + | Author | [facility] | + + + | Organization | [facility] | + + + | Address | Unknown | + + + | Phone | Unavailable | + + + Support + + +---------+ + | Name | Relationship | Address | Phone | + + +---------+ + | Hans Grissom | ECON | Unknown | | + + +---------+ + Care Team Providers + +------+ + | Care Box Spring Frame Builder Name | Role | Phone | + +------+ + | No Pcp Per Patient | PCP | Unavailable | + +------+ + Encounter Details +--------+ + + + + | Date | Type | Department | Care Team | Description | +--------+ + + + + | 01/03/ | Belt Maker | Otolaryngology | Ashleigh Negrete, | | | 2010 | | Adult General | MD [address] | | | | | Services at [facility] | [facility] | | | | | [address] | [place], [place] | | | | | Loop Physician's | [address] | | | | | [address], [address] floor | [phone] | | | | | [place], [place] | | | | | | [address] | | | | | | [phone] | | | +--------+ + + + [...] | + +--------+ + + + | HB-LAB T3, TOTAL | Routin | 01/02/2011 | | Results for this | | | e | | | procedure are in the | | | | | | results section. | + +--------+ + + + | CBC ONLY | Routin | 01/02/2011 | | Results for this | | | e | | | procedure are in the | | | | | | results section. | + +--------+ + + + | FREE T4 | Routin | 01/02/2011 | | Results for this | | | e | | | procedure are in the | | | | | | results section. | + +--------+ + + + | T3 TOTAL, SERUM | Routin | 01/02/2011 | | Results for this | | | e | | | procedure are in the | | | | | | results section. | + +--------+ + + + | TSH | Routin | 01/02/2011 | | Results for this | | | e | | | procedure are in the | | | | | | results section. | + +--------+ + + + | HCG QUAL, URINE | Routin | 01/02/2011 | | Results for this | | | e | | | procedure are in the | | | | | | results section. | + +--------+ + + + documented in this encounter Results HB-LAB T3, TOTAL (01/02/2011) + +-------+ + + + | Component | Value | Ref Range | Performed | Pathologist | | | | | At | Signature | + +-------+ + + + | T3, TOTAL | 160 | 98 - 215 ng/dL | NON [facility] | | | | | | LAB | | + +-------+ + + + + +---------+ + + | Performing | Address | City/State/Zipcode | Phone Number | | Organization | | | | + +---------+ + + | NON [facility] | | | | + +---------+ + + T3 TOTAL, SERUM (01/02/2011) + +-------+ + + + | Component | Value | Ref Range | Performed | Pathologist | | | | | At | Signature | + +-------+ + + + | T3, TOTAL | 160 | 98 - 215 ng/dL | NON [facility] | | | | | | LAB | | + +-------+ + + + + + | Specimen | + + | Blood - Blood | + + + +---------+ + + | Performing | Address | City/State/Zipcode | Phone Number | | Organization | | | | + +---------+ + + | NON [facility] | | | | + +---------+ + + HCG QUAL, URINE (01/02/2011) + +-------+ + + + | Component | Value | Ref Range | Performed | Pathologist | | | | | At | Signature | + +-------+ + + + | HCG QUAL | neg | mIU/mL | NON [facility] | | | URINE | | | LAB | | + +-------+ + + + | QC: ENTER | neg | | NON [facility] | | | "PASS" OR | | | LAB | | | "FAIL", | | | | | | URINE HCG | | | | | + +-------+ + + + + + | Specimen | + + | Urine - Urine | + + + +---------+ + + | Performing | Address | City/State/Zipcode | Phone Number | | Organization | | | | + +---------+ + + | NON [facility] | | | | + +---------+ + + CBC ONLY (01/02/2011) + + + + + + | Component | Value | Ref Range | Performed | Pathologist | | | | | At | Signature | + + + + + + | WHITE CELL | 12.2 (A) | 4.5 - 11 K/cu | NON [facility] | | | COUNT | | mm | LAB | | + + + + + + | RED CELL | | M/cu mm | NON [facility] | | | COUNT | | | LAB | | + + + + + + | HEMOGLOBIN | 12.5 | 12.1999 - 16 | NON [facility] | | | | | g/dL | LAB | | + + + + + + | HEMATOCRIT | 36.4 | 35 - 45 % | NON [facility] | | | | | | LAB | | + + + + + + | MCV | | fL | NON [facility] | | | | | | LAB | | + + + + + + | MCH | | pg | NON [facility] | | | | | | LAB | | + + + + + + | MCHC | | g/dL | NON [facility] | | | | | | LAB | | + + + + + + | PLATELET | | K/cu mm | NON [facility] | | | COUNT | | | LAB | | + + + + + + | NEUTROPHIL | | % | NON [facility] | | | % | | | LAB | | + + + + + + | LYMPHOCYTE | | % | NON [facility] | | | % | | | LAB | | + + + + + + | MONOCYTE % | | % | NON [facility] | | | | | | LAB | | + + + + + + | EOS % | | % | NON [facility] | | | | | | LAB | | + + + + + + | BASO % | | % | NON [facility] | | | | | | LAB | | + + + + + + | RDW | | % | NON [facility] | | | | | | LAB | | + + + + + + + + | Specimen | + + | Blood - Blood | + + + +---------+ + + | Performing | Address | City/State/Zipcode | Phone Number | | Organization | | | | + +---------+ + + | NON [facility] | | | | + +---------+ + + FREE T4, SERUM (01/02/2011) + +-------+ + + + | Component | Value | Ref Range | Performed | Pathologist | | | | | At | Signature | + +-------+ + + + | FREE T4, | 0.82 | 0.71 - 1.76 | NON [facility] | | | SERUM | | ng/dL | LAB | | + +-------+ + + + + + | Specimen | + + | Blood - Blood | + + + +---------+ + + | Performing | Address | City/State/Zipcode | Phone Number | | Organization | | | | + +---------+ + + | NON [facility] | | | | + +---------+ + + TSH (01/02/2011) + + + + + + | Component | Value | Ref Range | Performed | Pathologist | | | | | At | Signature | + + + + + + | TSH | 0.099 (A) | 0.3 - 5.0 | NON [facility] | | | | | uIU/ml | LAB | | + + + + + [...]
--- OUTSIDE RECORDS SUMMARY | ~2020-05-24 | XMS | Encounter Summary ---
Demographics + + + | Address | [address] | | | [place] [address] | + + + | Home Phone | | + + + | Preferred Language | Unknown | + + + | Marital Status | Unknown | + + + | Nondenominational Affiliation | Unknown | + + + | Race | White | + + + | Ethnic Group | Unknown | + + + Author + + + | Author | [facility] | | | and [facility] | + + + | Organization | [facility] | | | and [place] | + + + | Address | Unknown | + + + | Phone | Unavailable | + + + Care Team Providers + +------+ + | Care Shrink Pit Supervisor Name | Role | Phone | + +------+ + PCP | Unavailable | + +------+ + Encounter Details +--------+ + + + + | Date | Type | Department | Care Team | Description | +--------+ + + + + | 10/13/ | Hospital | [facility] | Dhruv Horan | JALEN POSTPART | | 2001 | Encounter | CONVERSION DEP [address] | [place] [phone] | FOLLOW-UP | | | | MATI LOCKHART | (Fax) | | | | | [facility] [place] | | | | | | [address] | | | | | | [phone] | | | +--------+ + + + [...] + | Diagnosis | + + | Routine follow-up | + + documented in this encounter"
--- OUTSIDE RECORDS SUMMARY | ~2020-05-24 | XMS | Encounter Summary ---
Demographics + + + | Address | [address] | | | [place] [address] | + + + | Home Phone | | + + + | Preferred Language | Unknown | + + + | Marital Status | Unknown | + + + | Baptist Affiliation | Unknown | + + + | Race | White | + + + | Ethnic Group | Unknown | + + + Author + + + | Author | [facility] | | | and [facility] | + + + | Organization | [facility] | | | and [place] | + + + | Address | Unknown | + + + | Phone | Unavailable | + + + Care Team Providers + +------+ + | Care Office Coordinator Name | Role | Phone | + +------+ + PCP | Unavailable | + +------+ + Encounter Details +--------+ + + + + | Date | Type | Department | Care Team | Description | +--------+ + + + + | 08/22/ | Hospital | [facility] | | | | 2008 | Encounter | [facility] | | | | | | CENTER [address] | | | | | | [place] | | | | | | [address] | | | | | | [phone] | | | +--------+ + + + [...]
--- OUTSIDE RECORDS SUMMARY | ~2020-05-24 | XMS | Encounter Summary ---
Demographics + + + | Address | [address] | | | [place] [address] | + + + | Home Phone | | + + + | Preferred Language | Unknown | + + + | Marital Status | | + + + | Episcopalian Affiliation | CHR | + + + | Race | White | + + + | Ethnic Group | Not or | + + + Author + + + | Author | [facility] | + + + | Organization | [facility] | + + + | Address | Unknown | + + + | Phone | Unavailable | + + + Support + + +---------+ + | Name | Relationship | Address | Phone | + + +---------+ + | Hans Grissom | ECON | Unknown | | + + +---------+ + Care Team Providers + +------+ + | Care Financial Analyst Name | Role | Phone | + +------+ + | Bebeto White MD | PCP | | + +------+ + Encounter Details +--------+ + + + + | Date | Type | Department | Care Team | Description | +--------+ + + + + | 01/17/ | MyChart | Otolaryngology | Ashleigh Negrete, | Your results | | 2010 | Encounter | Thyroid Services at | [address] | | | | | [address] | | | | | [address] | [place], [place] | | | | | Physician's | [address] | | | | | [place], 2nd floor | [phone] | | | | | [place], [place] | | | | | | [address] | | | | | | [phone] | | | +--------+ + + + [...] this encounter Miscellaneous Notes Telephone Encounter - Ashleigh Negrete MD - 01/17/2011 3:11 PM PDTCalcium 8.8 (01/16/11)El ectronically signed by Ashleigh Negrete MD at 01/17/2011 3:11 PM PDTdocumented in this enco unter Plan of Treatment Not on filedocumented as of this encounter Visit Diagnoses Not on filedocumented in this encounter"
--- OUTSIDE RECORDS SUMMARY | ~2020-05-24 | XMS | Encounter Summary ---
Demographics + + + | Address | [address] | | | [place] [address] | + + + | Home Phone | | + + + | Preferred Language | Unknown | + + + | Marital Status | | + + + | Presybeterian Affiliation | CHR | + + + [...] Team Providers + +------+ + | Care Importer Exporter Name | Role | Phone | + [...] as of this encounter Progress Notes Interface, Technical Information Specialist In - 03/02/2005 1:30 AM [facility] [id number] E[facility] Date: 10/15/2004 Clinic: Referring Physician: Merlin Redmond M.D. [address] [place], [place] [address] Reason for Referral: I was asked by [...] brachial reflex. Laboratory Data: She presented to [facility] with a TSH that was low at 0.109 normal range being 0.32 to 5. This was drawn on May 21, 2004. She had a repeat TSH that was 0.088 with the same normal range, this was drawn on September 23, 2004. The corresponding free T-index was 2.4 with the normal range being 1.4 to 4.6, this was drawn on May 21, 2004. At [facility], she had a normal chemistry panel with [...] dictation. She has an MRI performed at [facility] on the day of clinic visit which [...] concerned that this could be related to Golden's, although this is a rare disease and [...] is no surgical indication. 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 Sonido Hicks M.D., Ph.D. [facility] / [id number] / [id number] / [id number] / [id number] Electronically signed by Sonido Hicks (Bill) 10-27-2004 10:52:56 PM documented i n this encounter Plan of Treatment Not on filedocumented as of this encounter Visit Diagnoses Not on filedocumented in this encounter"
--- OUTSIDE RECORDS SUMMARY | ~2020-05-24 | XMS | Encounter Summary ---
Demographics + + + | Address | [address] | | | [place] [address] | + + + | Home Phone | | + + + | Preferred Language | Unknown | + + + | Marital Status | | + + + | Zoroastrian Affiliation | CHR | + + + | Race | White | + + + | Ethnic Group | Not or | + + + Author + + + | Author | [facility] | + + + | Organization | [facility] | + + + | Address | Unknown | + + + | Phone | Unavailable | + + + Support + + +---------+ + | Name | Relationship | Address | Phone | + + +---------+ + | Hans Grissom | ECON | Unknown | | + + +---------+ + Care Team Providers + +------+ + | Care Transportation Planning Technician Name | Role | Phone | + [...] | | | | | | [place] [address] | [address], [address] | | | | | | Phone: | floor | | | | | | [phone] | [place], [place] | | | | | | Fax: | [address] | | | | | | [phone] | Phone: | | | | | | | [phone] | | | | | | | Fax: | | | | | | | [phone] | +--------+--------+ + + + + Encounter [...] | | | | [address] | [place], [place] | | | | | Physician's | [address] | | | | | Pavilion, 2nd floor | [phone] | | | | | [place], [place] | | | | | | [address] | | | | | | [phone] | | | +--------+---------+ + + + [...] [facility] and personally formulated the plan with [...] llowing difficulties, permanent hypocalcemia which may require superintendent terminal calcium and vitamin D replacement, chronic neck and throat pain, bleeding, infection and undesirable scar. The need for care home thyroid hormone replacement was also explained. Written [...] different from the original. PATIENT: Shellie Grissom [facility] MR#: [id number] DATE OF VISIT: 08/16/2010 REFERRING PROVIDER: Bebeto White MD PRIMARY CARE PROVIDER: No Pcp Per PATIENT CHIEF COMPLAINT: hyperthyroidism HPI: Shellie Grissom is a 30 y.o. female who was referred to the [facility] by Dr. White for evaluation of her hyperthyroidism discovered in 2004 after a fu ll workup for a potential tiny pituitary adenoma was completed. She was negative for Graves dz. She was started on PTU, which caused intolerable swelling of her extremities and then tr eated with methimazole from [id number] until she desired to conceive. After childbirth, [...] The patient's neck was scanned with a Elysia's 7-12 megaHz probe. Indications: Thyroid Hyperthyroidism Findings [...] | + +--------+ + + + | AR US,HEAD/NECK | Routin | 08/20/2010 | Toxic [...]
--- OUTSIDE RECORDS SUMMARY | ~2020-05-24 | XMS | Clinical Summary ---
Demographics + + + | Address | [address] | | | [place] [address] | + + + | Home Phone | | + + + | Preferred Language | Unknown | + + + | Marital Status | Unknown | + + + | Restoration Affiliation | Unknown | + + + | Race | White | + + + | Ethnic Group | Unknown | + + + Author + + + | Author | [facility] | | | and [facility] | + + + | Organization | [facility] | | | and [place] | + + + | Address | Unknown | + + + | Phone | Unavailable | + + + Care Team Providers + +------+ + | Care Combat Control Name | Role | Phone | + [...]
--- OUTSIDE RECORDS SUMMARY | ~2020-05-24 | XMS | Encounter Summary ---
Demographics + + + | Address | [address] | | | [place] [address] | + + + | Home Phone | | + + + | Preferred Language | Unknown | + + + | Marital Status | Unknown | + + + | Anabaptism Affiliation | Unknown | + + + | Race | White | + + + | Ethnic Group | Unknown | + + + Author + + + | Author | [facility] | | | and [facility] | + + + | Organization | [facility] | | | and [place] | + + + | Address | Unknown | + + + | Phone | Unavailable | + + + Care Team Providers + +------+ + | Care Animal Care Worker Name | Role | Phone | + +------+ + | Venus Bond | PCP | | + +------+ + Encounter Details +--------+ + + + + | Date | Type | Department | Care Team | Description | +--------+ + + + + | 02/10/ | Orders Only | [facility] | Tyler Avila, | | | 2017 | | [facility]IOLOGY [place] | [address] | | | | | [address] | [place] [address] | | | | | [place], [place] | [phone] | | | | | [address] | | | | | | [phone] | | | +--------+ + + + [...] | + +--------+ + + + | ECHO COMPLETE | Routin | 02/10/2017 | | Results for this | | | e | 3:54 PM | | procedure are in the | | | | PDT | | results section. | + +--------+ + + + documented in this encounter Results ECHO Complete (02/10/2017 3:54 PM PDT) + + | Specimen | + + | | + + + + + | Impressions | Performed At | + + + | 1. Overall left ventricular systolic function is normal with, an EF | | | between 65 - 70 %. | | + + + + + + | Narrative | Performed At | + + + | Patient Name: ZEINA QUILES Date of : 1980 | | | Performing Physician: Tyler Avila MD, | | | FACC, FACP, FASNC | | | | | | INDICATIONS chest pain, palpitations CONCLUSIONS | | | 1. Overall left ventricular systolic function is normal | | | with, an EF between 65 - 70 %. FINDINGS -------- ECG rhythm: | | | Sinus rhythm. Study: A 2-dimensional transthoracic echocardiogram | | | with m-mode, spectral and color flow Doppler was perfomed. Study: | | | This was a technically adequate study. Left Ventricle: Overall left | | | ventricular systolic function is normal with, an EF between 65 - 70 %. | | | Left Ventricle: The left ventricle cavity size is normal. Left | | | Ventricle: Left ventricular wall thickness is normal. Left Ventricle: | | | The diastolic filling pattern is normal for the age of the patient. | | | Right Ventricle: The right ventricle is normal in size and function. | | | Left Atrium: The left atrium is normal in size. Right Atrium: The | | | right atrium is normal in size. Aortic Valve: The aortic valve is | | | trileaflet, and appears anatomically normal. No aortic stenosis or | | | regurgitation. Mitral Valve: Normal appearing mitral valve. Mitral | | | Valve: Mild mitral regurgitation is present. Tricuspid Valve: The | | | tricuspid valve appears structurally normal. Tricuspid Valve: Mild | | | tricuspid regurgitation present. Tricuspid Valve: The right | | | ventricular systolic pressure (pulmonary artery systolic pressure), as | | | measured by Doppler, is 24.11mmHg. Pulmonic Valve: Pulmonic valve | | | appears structurally normal. Pulmonic Valve: Trace pulmonic | | | regurgitation. Pericardium: There is no pericardial effusion. | | | IVC/Hepatic Veins: The inferior vena cava is normal in size and | | | collapses > 50 % with sniff, indicating normal central venous | | | pressures. Aorta: The aortic root, ascending aorta and aortic arch | | | are normal. Mass: No mass visualized Thrombus: No clot visualized | | | Thrombus: No vegetation visualized. Septum: No ASD observed. Septum: | | | No VSD observed. MEASUREMENTS Ao sinus: 2.75 | | | cm Ao st junct: 2.39 cm IVC: 1.66 cm LA Diam: 3.70 cm | | | EDV(Teich): 56.72 ml IVSd: 1.02 cm LVIDd: 3.66 cm LVPWd: | | | 1.06 cm LVOT Area: 3.29 cm2 LVOT Diam: 2.05 cm %FS: | | | 38.72 % EF(Teich): 69.97 % ESV(Teich): 17.03 ml LVIDs: | | | 2.24 cm SV(Teich): 39.69 ml RVIDd: 2.62 cm LVEF MOD A2C: | | | 64.93 % SV MOD A2C: 61.09 ml LVEF MOD A4C: 65.05 % SV MOD | | | A4C: 49.77 ml EF Biplane: 65.48 % LVEDV MOD BP: 85.75 ml | | | LVESV MOD BP: 29.59 ml LVEDV MOD A2C: 94.07 ml LVLd A2C: | | | 7.72 cm LVEDV MOD A4C: 76.51 ml LVLd A4C: 7.53 cm LVESV MOD | | | A2C: 32.98 ml LVLs A2C: 6.34 cm LVESV MOD A4C: 26.73 ml | | | LVLs A4C: 6.23 cm LAESV(A-L): 25.33 ml LAESV Index (A-L): | | | 12.42 ml/m2 LAAs A2C: 11.36 cm2 LAESV A-L A2C: 27.39 ml LALs | | | A2C: 4.00 cm LAAs A4C: 9.37 cm2 LAESV A-L A4C: 20.90 ml | | | LALs A4C: 3.56 cm RAAs: 9.58 cm2 RAESV A-L: 20.39 ml RAESV | | | MOD: 19.30 ml RALs: 3.82 cm TAPSE: 2.58 cm AV maxPG: | | | 7.75 mmHg AV meanP.08 mmHg AV Vmax: 1.39 m/s AV Vmean: | | | 0.95 m/s AV VTI: 25.01 cm KIMMY Vmax: 2.74 cm2 KIMMY (VTI): | | | 2.96 cm2 AVAI (Vmax): 0.00 cm2/m2 AVAI (VTI): 0.00 cm2/m2 | | | LVOT maxP.37 mmHg LVOT meanP.82 mmHg LVSI Dopp: | | | 36.30 ml/m2 LVSV Dopp: 74.05 ml LVOT Vmax: 1.15 m/s LVOT | | | Vmean: 0.78 m/s LVOT VTI: 22.44 cm MV A Kiran: 0.80 m/s MV | | | Dec Dolores: 6.82 m/s2 MV DecT: 126.58 ms MV E Kiran: 0.86 m/s | | | MV E/A Ratio: 1.07 MV PHT: 36.70 ms MVA By PHT: 5.99 cm2 | | | Septal e': 0.08 m/s Septal E/e': 10.41 Lateral e': 0.10 m/s | | | Lateral E/e': 7.87 P Vein A: 0.20 m/s P Vein D: 0.55 m/s | | | P Vein S/D Ratio: 1.20 P Vein S: 0.66 m/s PV maxP.89 | | | mmHg PV Vmax: 0.98 m/s RAP: 5 mmHg RVSP: 24.10 mmHg TR | | | maxP.10 mmHg TR Vmax: 2.18 m/s Hoop Riveting Machine Operator Helper: SUKHJINDER | | | Authenticated by: Tyler Avila MD, FACC, FACP, DOC Report | | | Date/Time: 02-15-2017 11:46:00 | | + + + + + | Procedure Note | + + | Hilton, Rad Conversion - 03/24/2019 6:00 PM PDT Patient Name: Billie QUILES | | : 1980 Performing Physician: Tyler Avila MD, FACC, | | EDWARDOP, | | DOC INDICATIONS--------- | | --chest pain, palpitations CONCLUSIONS 1. Overall left ventricular systolic | | function is normal with, an EF between 65 - 70 %. FINDINGS--------ECG rhythm: Sinus | | rhythm.Study: A 2-dimensional transthoracic echocardiogram with m-mode, spectral and | | color flow Doppler was perfomed.Study: This was a technically adequate study.Left | | Ventricle: Overall left ventricular systolic function is normal with, an EF between 65 - | | 70 %.Left Ventricle: The left ventricle cavity size is normal.Left Ventricle: Left | | ventricular wall thickness is normal.Left Ventricle: The diastolic filling pattern is | | normal for the age of the patient.Right Ventricle: The right ventricle is normal in size | | and function.Left Atrium: The left atrium is normal in size.Right Atrium: The right | | atrium is normal in size.Aortic Valve: The aortic valve is trileaflet, and appears | | anatomically normal. No aortic stenosis or regurgitation.Mitral Valve: Normal appearing | | mitral valve.Mitral Valve: Mild mitral regurgitation is present.Tricuspid Valve: The | | tricuspid valve appears structurally normal.Tricuspid Valve: Mild tricuspid | | regurgitation present.Tricuspid Valve: The right ventricular systolic pressure | | (pulmonary artery systolic pressure), as measured by Doppler, is 24.11mmHg.Pulmonic | | Valve: Pulmonic valve appears structurally normal.Pulmonic Valve: Trace pulmonic | | regurgitation.Pericardium: There is no pericardial effusion.IVC/Hepatic Veins: The | | inferior vena cava is normal in size and collapses > 50 % with sniff, indicating normal | | central venous pressures.Aorta: The aortic root, ascending aorta and aortic arch are | | normal.Mass: No mass visualizedThrombus: No clot visualizedThrombus: No vegetation | | visualized.Septum: No ASD observed.Septum: No VSD observed. MEASUREMENTS Ao | | sinus: 2.[address] junct: 2.39 cmIVC: 1.66 cmLA Diam: 3.70 cmEDV(Teich): | | 56.72 mlIVSd: 1.02 cmLVIDd: 3.66 cmLVPWd: 1.06 cmLVOT Area: 3.29 [id number] Diam: | | 2.05 cm%FS: 38.72 %EF(Teich): 69.97 %ESV(Teich): 17.03 mlLVIDs: 2.24 | | cmSV(Teich): 39.69 mlRVIDd: 2.62 cmLVEF MOD A2C: 64.93 %SV MOD A2C: 61.09 mlLVEF | | MOD A4C: 65.05 %SV MOD A4C: 49.77 mlEF Biplane: 65.48 %LVEDV MOD BP: 85.75 | | mlLVESV MOD BP: 29.59 mlLVEDV MOD A2C: 94.07 mlLVLd A2C: 7.72 cmLVEDV MOD A4C: | | 76.51 mlLVLd A4C: 7.53 cmLVESV MOD A2C: 32.98 mlLVLs A2C: 6.34 cmLVESV MOD A4C: | | 26.73 mlLVLs A4C: 6.23 cmLAESV(A-L): 25.33 mlLAESV Index (A-L): 12.42 ml/m2LAAs | | A2C: 11.36 [id number] A-L A2C: 27.39 mlLALs A2C: 4.00 cmLAAs A4C: 9.37 [id number] | | A-L A4C: 20.90 mlLALs A4C: 3.56 cmRAAs: 9.58 [id number] A-L: 20.39 mlRAESV MOD: | | 19.30 mlRALs: 3.82 cmTAPSE: 2.58 cmAV maxP.75 mmHgAV meanP.08 mmHgAV | | Vmax: 1.39 m/Jackson Vmean: 0.95 m/Jackson VTI: 25.01 cmAVA Vmax: 2.74 cm2AVA (VTI): | | 2.96 ah6TPDM (Vmax): 0.00 cm2/m2AVAI (VTI): 0.00 cm2/m2LVOT maxP.37 mmHgLVOT | | meanP.82 mmHgLVSI Dopp: 36.30 ml/m2LVSV Dopp: 74.05 mlLVOT Vmax: 1.15 | | m/sLVOT Vmean: 0.78 m/sLVOT VTI: 22.44 cmMV A Kiran: 0.80 m/sMV Dec Dolores: 6.82 | | m/s2MV DecT: 126.58 msMV E Kiran: 0.86 m/sMV E/A Ratio: 1.07MV PHT: 36.70 msMVA By | | PHT: 5.99 [id number] e': 0.08 m/sSeptal E/e': 10.41Lateral e': 0.10 m/sLateral | | E/e': 7.87P Vein A: 0.20 m/sP Vein D: 0.55 m/sP Vein S/D Ratio: 1.20P Vein S: | | 0.66 m/sPV maxP.89 mmHgPV Vmax: 0.98 m/sRAP: 5 mmHgRVSP: 24.10 mmHgTR maxPG: | | 19.10 mmHgTR Vmax: 2.18 m/s Hoop Riveting Machine Operator Helper: DBSAuthenticated by: Tyler Avila MD, | | FACC, FACP, FASNCReport Date/Time: 02-15-2017 11:46:00 IMPRESSION: 1. Overall left | | ventricular systolic function is normal with, an EF between 65 - 70 %. | |Ao sinus: 2.75 cm | |Ao st junct: 2.39 cm | |IVC: 1.66 cm | |LA Diam: 3.70 cm | |EDV(Teich): 56.72 ml | |IVSd: 1.02 cm | |LVIDd: 3.66 cm | |LVPWd: 1.06 cm | |LVOT Area: 3.29 cm2 | |LVOT Diam: 2.05 cm | |%FS: 38.72 % | |EF(Teich): 69.97 % | |ESV(Teich): 17.03 ml | |LVIDs: 2.24 cm | |SV(Teich): 39.69 ml | |RVIDd: 2.62 cm | |LVEF MOD A2C: 64.93 % | |SV MOD A2C: 61.09 ml | |LVEF MOD A4C: 65.05 % | |SV MOD A4C: 49.77 ml | |EF Biplane: 65.48 % | |LVEDV MOD BP: 85.75 ml | |LVESV MOD BP: 29.59 ml | |LVEDV MOD A2C: 94.07 ml | |LVLd A2C: 7.72 cm | |LVEDV MOD A4C: 76.51 ml | |LVLd A4C: 7.53 cm | |LVESV MOD A2C: 32.98 ml | |LVLs A2C: 6.34 cm | |LVESV MOD A4C: 26.73 ml | |LVLs A4C: 6.23 cm | |LAESV(A-L): 25.33 ml | |LAESV Index (A-L): 12.42 ml/m2 | |LAAs A2C: 11.36 cm2 | |LAESV A-L A2C: 27.39 ml | |LALs A2C: 4.00 cm | |LAAs A4C: 9.37 cm2 | |LAESV A-L A4C: 20.90 ml | |LALs A4C: 3.56 cm | |RAAs: 9.58 cm2 | |RAESV A-L: 20.39 ml | |RAESV MOD: 19.30 ml | |RALs: 3.82 cm | |TAPSE: 2.58 cm | |AV maxP.75 mmHg | |AV meanP.08 mmHg | |AV Vmax: 1.39 m/s | |AV Vmean: 0.95 m/s | |AV VTI: 25.01 cm | |KIMMY Vmax: 2.74 cm2 | |KIMMY (VTI): 2.96 cm2 | |AVAI (Vmax): 0.00 cm2/m2 | |AVAI (VTI): 0.00 cm2/m2 | |LVOT maxP.37 mmHg | |LVOT meanP.82 mmHg | |LVSI Dopp: 36.30 ml/m2 | |LVSV Dopp: 74.05 ml | |LVOT Vmax: 1.15 m/s | |LVOT Vmean: 0.78 m/s | |LVOT VTI: 22.44 cm | |MV A Kiran: 0.80 m/s | |MV Dec Dolores: 6.82 m/s2 | |MV DecT: 126.58 ms | |MV E Kiran: 0.86 m/s | |MV E/A Ratio: 1.07 | |MV PHT: 36.70 ms | |MVA By PHT: 5.99 cm2 | |Septal e': 0.08 m/s | |Septal E/e': 10.41 | |Lateral e': 0.10 m/s | |Lateral E/e': 7.87 | |P Vein A: 0.20 m/s | |P Vein D: 0.55 m/s | |P Vein S/D Ratio: 1.20 | |P Vein S: 0.66 m/s | |PV maxP.89 mmHg | |PV Vmax: 0.98 m/s | |RAP: 5 mmHg | |RVSP: 24.10 mmHg | |TR maxP.10 mmHg | |TR Vmax: 2.18 m/s | | | |Hoop Riveting Machine Operator Helper: DBS | |Authenticated by: Tyler Avila MD, FACC, FACP, [employer] | |Report Date/Time: 02-15-2017 11:46:00 | | | |IMPRESSION: | |1. Overall left ventricular systolic function is normal with, an EF between 65 - 70 %. | + + documented in this encounter Visit Diagnoses Not on filedocumented in this encounter"
--- OUTSIDE RECORDS SUMMARY | ~2020-05-24 | XMS | Encounter Summary ---
Demographics + + + | Address | [address] | | | [place] [address] | + + + | Home Phone | | + + + | Preferred Language | Unknown | + + + | Marital Status | | + + + | Anabaptism Affiliation | CHR | + + + | Race | White | + + + | Ethnic Group | Not or | + + + Author + + + | Author | [facility] | + + + | Organization | [facility] | + + + | Address | Unknown | + + + | Phone | Unavailable | + + + Support + + +---------+ + | Name | Relationship | Address | Phone | + + +---------+ + | Hans Grissom | ECON | Unknown | | + + +---------+ + Care Team Providers + +------+ + | Care Car Wash Attendant Name | Role | Phone | [...] n | Dario Mailcode: [id number] | [place], [place] | | | | | [place], [place] | [address] | | | | | [address] | | | | | | [phone] | | | +--------+ + + + [...] uIU/ml | | | | | [facility] | | | | | | Laboratories. | | | | + + + + + + + + | Specimen | + + | | + + + + + + + | Performing | Address | City/State/Zipcode | Phone Number | | Organization | | | | + + + + + | [facility] | [address] | [place] [address] | | | LABORATORY | | | [...] | | | | | performed by [facility] | | | | | | [facility] | | | | | | Labaoratory. | | | | + + + + + + + + | Specimen | + + | | + + + + + + + | Performing | Address | City/State/Zipcode | Phone Number | | Organization | | | | + + + + + | [facility] | [address] | [place] [address] | | | LABORATORY | | | [...] by | | | | | | [facility] | | | | | | [facility]. | | | | + + + + + + + + | Specimen | + + | | + + + + + + + | Performing | Address | City/State/Zipcode | Phone Number | | Organization | | | | + + + + + | [facility] | [address] | [place] [address] | | | LABORATORY | | | [...] [facility] | | | | | | [facility] | | | | | | Laboratories. | | | | + + + + + + + + | Specimen | + + | | + + + + + + + | Performing | Address | City/State/Zipcode | Phone Number | | Organization | | | | + + + + + | [facility] | [address] | [place] [address] | | | LABORATORY | | | [...] | + + + + + | [facility] | [address] | [place] [address] | | | LABORATORY | | | [...] by | | | | | | [facility] | | | | | | [facility]. | | | | + + + + + + + + | Specimen | + + | | + + + + + + + | Performing | Address | City/State/Zipcode | Phone Number | | Organization | | | | + + + + + | [facility] | [address] | [place] [address] | | | LABORATORY | | | [...] | + + + + + | [facility] | [address] | [place] [address] | | | LABORATORY | | | [...] | | | | | performed by [facility] | | | | | | [facility] | | | | | | Laboratories. | | | | + + + + + + + + | Specimen | + + | | + + + + + + + | Performing | Address | City/State/Zipcode | Phone Number | | Organization | | | | + + + + + | [facility] | [address] | [place] [address] | | | LABORATORY | | | [...] | + + + + + | [facility] | [address] | [place] [address] | | | PATHOLOGY | [address] | | | + + + + + | [facility] | [address] | [place] [address] | | | PATHOLOGY | [address] [...] | + + + + + | [facility] | [address] | [place] [address] | | | LABORATORY | | | [...] | + + + + + | [facility] | [address] | [place] [address] | | | LABORATORY | | | [...] | + + + + + | [facility] | [address] | [place] [address] | | | LABORATORY | | | [...] + + + | [facility] | [address] | [place] [address] | | | LABORATORY | | | [...] | + + + + + | [facility] | [address] | [place] [address] | | | LABORATORY | | | [...] + + + | [facility] | [address] | [place] [address] | | | LABORATORY | | | [...] | + + + + + | [facility] | [address] | [place] [address] | | | LABORATORY | | | [...] | + + + + + | [facility] | [address] | [place] [address] | | | LABORATORY | | | [...] Margarito | | | | | | [facility] | | | | | | Labaoratory. | | | | + + + + + + + + | Specimen | + + | | + + + + + + + | Performing | Address | City/State/Zipcode | Phone Number | | Organization | | | | + + + + + | [facility] | [address] | [place] [address] | | | LABORATORY | | | | + + + + + documented in this encounter Visit Diagnoses Not on filedocumented in this encounter"
--- OUTSIDE RECORDS SUMMARY | ~2020-05-24 | XMS | Encounter Summary ---
Demographics + + + | Address | [address] | | | [place] [address] | + + + | Home Phone | | + + + | Preferred Language | Unknown | + + + | Marital Status | | + + + | Worship Affiliation | CHR | + + + | Race | White | + + + | Ethnic Group | Not or | + + + Author + + + | Author | [facility] | + + + | Organization | [facility] | + + + | Address | Unknown | + + + | Phone | Unavailable | + + + Support + + +---------+ + | Name | Relationship | Address | Phone | + + +---------+ + | Hans Grissom | ECON | Unknown | | + + +---------+ + Care Team Providers + +------+ + | Care Moisture Meter Operator Name | Role | Phone | + +------+ + | Bebeto White MD | PCP | | + +------+ + Reason for Visit + + + | Reason | Comments | + + + | Pre-op evaluation | | + + + Encounter Details +--------+---------+ + + + | Date | Type | Department | Care Team | Description | +--------+---------+ + + + | 01/13/ | Office | Otolaryngology | Ashleigh Negrete, | Toxic multinodular | | 2010 | Visit | Thyroid Services at | [address] | goiter w/o crisis | | | | [facility] [address] | (Primary Dx) | | | | [address] | [place], [place] | | | | | Physician's | [address] | | | | | Pavilion, 2nd floor | [phone] | | | | | [place], [place] | | | | | | [address] | | | | | | [phone] | | | +--------+---------+ + + + [...] + + + | Blood Pressure | 138/87 | 01/13/2011 12:21 PM | | | | | PDT | | + + + + + | Pulse | 112 | 01/13/2011 12:21 PM | | | | | PDT [...] Weight | 95.3 kg (210 lb) | 01/13/2011 12:21 PM | | | | | PDT | | + + + + + | Height | - | - | | + + + + + | Body Mass Index | 36.05 | 08/16/2010 1:21 PM | | | | | PST | | + + + + + documented in this encounter Progress Notes Ashleigh Negrete MD - 01/13/2011 1:06 PM PDTFormatting of this note might be different fr om the original. PATIENT NAME: Shellie Grissom [facility] MR#: [id number] : 1980 Date of Service: 01/13/2011 REASON FOR FOLLOW-UP:hyperparathyroidism Shellie Grissom is a 30 y.o. female was previously seen at the [facility] for evaluation of hyperthyroidism. She returns today to go over test results and dis cuss treatment plans. New symptoms and complaints: None. Only occasional palpitations. Exam: Filed Vitals: 01/13/2011 12:21 PM Weight: 95.255 kg (210 lb) BP: 138/87 Pulse: 112 No change in neck exam. FFL - normal. Procedure Note: Procedure: Flexible Fiberoptic Laryngoscopy Surgeon: Ashleigh Negrete MD Indications: Toxic multinodular goiter Procedure: After adequate topical anesthetic application, the Olympus flexible fiberoptic scope was inserted through the nasal passage. The nasopharynx, larynx, hypopharynx were exa mined. Findings: The larynx and hypopharynx were without any mass or lesions. Vocal cord mucosa - There was no edema of true vocal cords; There was no erythema of mucosa . 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 After fully review ing with the patient the procedure and its risks, written informed consent was obtained. Ashleigh Negrete M.D., F.A.C.S. Professor of Otolaryngology Department of Otolaryngology - Head & Neck Surgery CC: Bebeto White MD documented in this e ncounter Miscellaneous Notes Scan - Ashleigh Negrete MD - 01/13/2011 12:00 AM PDT documented in this encounter Plan of Treatment Not on filedocumented as of this encounter Procedures + +--------+ + + + | Procedure Name | Priori | Date/Time | Associated Diagnosis | Comments | | | ty | | | | + +--------+ + + + | CO | Routin | 01/14/2011 | Toxic multinodular | | | LARYNGOSCOPY,FLEXIBL | e | 9:18 PM | goiter w/o crisis | | | E, DIAGNOSTIC | | PDT | | | + +--------+ + + + documented in this encounter Visit Diagnoses + + | Diagnosis | + + | 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
--- OUTSIDE RECORDS SUMMARY | ~2020-05-24 | XMS | Encounter Summary ---
Demographics + + + | Address | [address] | | | [place] [address] | + + + | Home Phone | | + + + | Preferred Language | Unknown | + + + | Marital Status | | + + + | Temple Affiliation | CHR | + + + [...] Team Providers + +------+ + | Care Head Host/Hostess Name | Role | Phone | + +------+ + PCP | Unavailable | + +------+ + Encounter Details +--------+ + + + + | Date | Type | Department | Care Team | Description | +--------+ + + + + | 10/22/ | Office | [facility], | Clinic, Pituitary | Progress Note | | 2004 | Visit-Trans | DIABETES & | | | | | cribed | METABOLISM | | | +--------+ + + + [...] as of this encounter Progress Notes Interface, Adult Basic Education Manager In - 03/02/2005 1:30 AM PDT [id number] [facility] Date: 10/22/2004 Clinic: Pituitary Clinic Reason for Visit: Shellie Grissom is a 24-year-old female who returns to the Pituitary Clinic on October 22, 2004, for consultation on a low-dose cortrosyn stimulation test. This visit was staffed by Dr. Sonido Hicks. Procedure Note: I had spent a total of 60 minutes of jgwc-oi-lxmt time of which over 50% was spent in coordination of this patient's care. I performed a 1-mcg cortrosyn stimulation test to test the pituitary-caused adrenal insufficiency in the light of the patient's pituitary symptoms. Risks and benefits of the procedure were discussed with the patient and questions were answered. After an IV was placed in the patient's right arm, baseline cortisol, and ACTH, as well as other labs were also drawn. A dilution of 1 mcg/mL of cortrosyn was prepared, by reconstituting a 250 mcg vial of lyophilized cortrosyn and injecting this in a 250 mL of normal saline. A 1 mcg/mL of cortrosyn was administered to the patient, and a second cortisol was drawn one-half hour later. The IV was then removed and the site dressed. There was no adverse effects or events. The unused portion of the diluted cortrosyn was discarded. Laura Blum M.D., Ph.D. / [id number] / [id number] / [id number] / [id number] Electronically signed by Sonido Hicks (Bill) 10-27-2004 10:53:07 PM documented i n this encounter Plan of Treatment Not on filedocumented as of this encounter Visit Diagnoses Not on filedocumented in this encounter"
--- OUTSIDE RECORDS SUMMARY | ~2020-05-24 | XMS | Encounter Summary ---
Demographics + + + | Address | [address] | | | [place] [address] | + + + | Home Phone | | + + + | Preferred Language | Unknown | + + + | Marital Status | Unknown | + + + | Faith Affiliation | Unknown | + + + | Race | White | + + + | Ethnic Group | Unknown | + + + Author + + + | Author | [facility] | | | and [facility] | + + + | Organization | [facility] | | | and [place] | + + + | Address | Unknown | + + + | Phone | Unavailable | + + + Care Team Providers + +------+ + | Care School Office Assistant Name | Role | Phone | + [...] Provider Unknown | | | | | [place], [place] | [phone] | | | | | [address] | | | | | | [phone] | | | +--------+ + + + [...]
--- OUTSIDE RECORDS SUMMARY | ~2020-05-24 | XMS | Encounter Summary ---
Demographics + + + | Address | [address] | | | [place] [address] | + + + | Home Phone | | + + + | Preferred Language | Unknown | + + + | Marital Status | Unknown | + + + | Rastafarian Affiliation | Unknown | + + + | Race | White | + + + | Ethnic Group | Unknown | + + + Author + + + | Author | [facility] | | | and [facility] | + + + | Organization | [facility] | | | and [place] | + + + | Address | Unknown | + + + | Phone | Unavailable | + + + Care Team Providers + +------+ + | Care Concrete Mixer Operator Name | Role | Phone | + +------+ + | Venus Bond | PCP | | + +------+ + Encounter Details +--------+ + + + + | Date | Type | Department | Care Team | Description | +--------+ + + + + | 01/18/ | Orders Only | [facility] | Priti He | | | 2012 | | ASSOCIATED | [address] | | | | | [facility] | [address] | | | | | [address] | [place] [address] | | | | | [address] [facility] [phone] | | | | | [place] [address] | | | | | | [phone] | | | +--------+ + + + [...]
--- OUTSIDE RECORDS SUMMARY | ~2020-05-24 | XMS | Encounter Summary ---
Demographics + + + | Address | [address] | | | [place] [address] | + + + | Home Phone | | + + + | Preferred Language | Unknown | + + + | Marital Status | Unknown | + + + | Baptism Affiliation | Unknown | + + + | Race | White | + + + | Ethnic Group | Unknown | + + + Author + + + | Author | [facility] | | | and [facility] | + + + | Organization | [facility] | | | and [place] | + + + | Address | Unknown | + + + | Phone | Unavailable | + + + Care Team Providers + +------+ + | Care Director Of Global Sales Name | Role | Phone | + +------+ + PCP | Unavailable | + +------+ + Encounter Details +--------+ + + + + | Date | Type | Department | Care Team | Description | +--------+ + + + + | 10/06/ | Hospital | [facility] | Dhruv Horan | | | 2001 - | Encounter | [facility] | [place] [phone] | | | | | AND DELIVERY 888 | (Fax) | | | 10/08/ | | [address] | | | | 2001 | | [place], [place] | | | | | | [address] | | | | | | [phone] | | | +--------+ + + + [...]
--- OUTSIDE RECORDS SUMMARY | ~2020-05-24 | XMS | Encounter Summary ---
Demographics + + + | Address | [address] | | | [place] [address] | + + + | Home Phone | | + + + | Preferred Language | Unknown | + + + | Marital Status | | + + + | Sabianism Affiliation | CHR | + + + | Race | White | + + + | Ethnic Group | Not or | + + + Author + + + | Author | [facility] | + + + | Organization | [facility] | + + + | Address | Unknown | + + + | Phone | Unavailable | + + + Support + + +---------+ + | Name | Relationship | Address | Phone | + + +---------+ + | Hans Grissom | ECON | Unknown | | + + +---------+ + Care Team Providers + +------+ + | Care Bariatric Surgeon Name | Role | Phone | + [...] | | | | | | | [address] | | | | | | | [id number] | | | | | | | [facility] | | | | | | | [place], | | | | | | | [place] [address] | | | | | | | Phone: | | | | | | | [phone] | +--------+--------+ + + + + Encounter Details +--------+ + + + + | Date | Type | Department | Care Team | Description | +--------+ + + + + | 01/14/ | Hospital | [facility] [address] | Ashleigh Negrete, | | | 2010 - | Encounter | [address] | [address] [facility] | | | | | [id number] [facility] | [address] | | | 01/15/ | | [facility], | [place], [place] | | | 2010 | | [place] [address] | [address] | | | | | [phone] | [phone] | | | | | | | [...] Otolaryngology (Head & Neck Surgery) with Dr. Negrete, please call: . You should be seen within 2 about weeks from surgery. You need to see your inspector balance wheel motion near your home with lab draws next week. Also, you ne ed to have a blood drawn to look at the calcium level tomorrow (01/16/11). Other Discharge Orders and Instructions For Extreme Emergencies: Call 245 Special Instructions: Do not drink alcohol while [...] need it. You should also take an ujhx-sew-mxbixku stool softener called Colace (Docusate sodium) or Miralax (polyethylene glycol). Follow the directions on the label. Call the Resident on-call at [phone] if you have any of the following [...] your house. Lab to call results to [facility] medicine doctor at home. Final Surgical Pathology [...] Mode of Transportation: Car Accompanied by: Family/Responsible [employer] Name: (when applicable) Phone #: Discharge Nurse: Uy Vázquez Date: 01/15/2011 Discharge Time: 12:29 PM AttachmentsThe following attachments cannot be sent through Care Everywhere.Medication Advi sor 2010.3: Hydrocodone[facility]Acetaminophen, [facility] 2010.3: Wound Closure and Wo und [facility] Health Ad[facility] 2010.3: Hypocalcemiadocumented in this encounter [...] from ET tube Jonah Elliott MD PhD [facility] Dept. of Otolaryngology documented in this e ncounter H&P Notes Ashleigh Negrete MD - 01/17/2011 10:00 AM PDT documented in this encounter Procedure Notes Ashleigh Negrete MD - 01/17/2011 10:00 AM PDT ther, Faculty - 0 01/15/2011 3:54 PM PDTAssociated Order(s): ANESTHESIA/SEDATION; ANESTHESIA/SEDATION Ashleigh Underwood MD - 0 01/14/2011 4:23 PM PDTAssociated Order(s): ANESTHESIA/SEDATION; ANESTHESIA/SEDATION Ashleigh Underwood MD - 01/14/2011 4:12 PM PDTAssociated Order(s): PROCEDURE NOTEOPERATIVE REPORT Patient Name: Shellie Grissom Date of Surgery: 01/14/11 Attending Surgeon: Dr. Negrete Trapeze Performer(s): Amy Lira Preoperative Diagnosis(es): Toxic goiter, hyperthyroidism [...] off the left thyroid lobe with a Shipman elevator. The inferior thyroid veins were cauterized [...] were re-examined and all 4 appeared viable. [place] drain was placed. After maykel ng sure [...] s/p total thyroidectomy. Patient lives with in [place], [place], has [facility] insurance. No CM needs anticipated, will continue to follow until discharge. Annika Grace RN, BSN, ENT/Neuro Seamer #[id number] lan of Nusrat Gillespie RN - 01/15/2011 [...] recommendations forward:Enforce pt safety. Patient Stability:Moderately Stable [facility] - Maximilian Al R - 01/15/2011 6:00 AM PDTNursing Handoff Report Primary focus of stay: Total thyroidectomy. Pertinent physical findings: neck dissection, dsg on the anterior neck, pepito under dress ing. Hoarseness and sore throat. IVF D5LR 100ml/hr. Pt reporting feeling more hungry. Orders to follow up on: . ADAT. Last BM BUSINESS ANALYST, continue stool softners. Last pain assessment/reassessment: Vicodin [...] Language/sensory issues: none Family: Family/Home Transport: In [facility] Waiting Room (01/14/11 124) Contact Name: Hans Grissom (01/14/11 829) Contact Number: [phone] (01/14/11 4920) Family contacted: Yes, with patient Anticipated post-op [...] [facility] | [address] | [place] [address] | | | PATHOLOGY | [address] [...] | + + + + + | [facility] | [address] | [place] [address] | | | PATHOLOGY | [address] [...] | + + + + + | [facility] | [address] | [place], [place] | | | [facility] | [address] | | | + + + + + | [facility] | [address] | [place], [place] | | | [facility] | [address] | | | [...] | | | | | | poleA5, telephone claims representative | | | | | | [...] | | | | | | Corbin Cochran | | | | | | MaraPathologistElectroni [...] | + + + + + | [facility] | [address] | [place] [address] | | | PATHOLOGY | [address] [...]
--- OUTSIDE RECORDS SUMMARY | ~2020-05-24 | XMS | Encounter Summary ---
Demographics + + + | Address | [address] | | | [place] [address] | + + + | Home Phone | | + + + | Preferred Language | Unknown | + + + | Marital Status | Unknown | + + + | Mandaeism Affiliation | Unknown | + + + | Race | White | + + + | Ethnic Group | Unknown | + + + Author + + + | Author | [facility] | | | and [facility] | + + + | Organization | [facility] | | | and [place] | + + + | Address | Unknown | + + + | Phone | Unavailable | + + + Care Team Providers + +------+ + | Care Sales And Leasing Agent Name | Role | Phone | + +------+ + | Venus Bond | PCP | | + +------+ + Encounter Details +--------+ + + + + | Date | Type | Department | Care Team | Description | +--------+ + + + + | 02/10/ | Orders Only | [facility] | Tyler Avila, | | | 2017 | | CARDIOLOGY [place] | [address] | | | | | [address] | [place] [address] | | | | | [address] | [phone] | | | | | [place], [place] | | | | | | [address] | | | | | | [phone] | | | +--------+ + + + [...] Performed At | + + + | [facility] C[facility] [address], [place], [place] | | | [phone] T[place]MI[place] STRESS TEST TEST DATE: 02/10/2017 NAME: [...] Max BP: | | | 211/90. RPP: 32405. METS: 10.10. The patient walked to 88% MPHR. | | | Symptoms none. The test was terminated due to patient bilateral leg | | | burning. ECG: No arrhythmia. No ischemia. | | + + + + + | Procedure Note | + + | Hilton, Rad Conversion - 03/25/2019 10:00 AM PDT [facility] | | , [address], [place], [phone] T[place]MI[place] STRESS TESTTEST DATE: 02/10/2017NAME: | | Hortencia Grissom: 1980MRN: [id number] MD: Tyler Avila MD INDICATION FOR | | TEST: Chest pain RISK FACTORS: stress PROCEDURE: Bebeto protocol. Predicted exercise time | | was 08:00minutes. Predicted Maximum HR: 183. Predicted 85% Max HR: 156. REST DATA: | | Heart Rate: 86 bpm, BP: 162/88. ECG: Normal. STRESS DATA: Exercise Time: 07:30minutes, | | HR achieved: 162 bpm, Max BP: 211/90. RPP: 21294. METS: 10.10. The patient walked to 88% [...] achieved: 162 bpm, Max BP: 211/90. RPP: 77090. METS: 10.10. The patient walked to 88% [...]
--- OUTSIDE RECORDS SUMMARY | ~2020-05-24 | XMS | Encounter Summary ---
Demographics + + + | Address | [address] | | | [place] [address] | + + + | Home Phone | | + + + | Preferred Language | Unknown | + + + | Marital Status | Unknown | + + + | Caodaism Affiliation | Unknown | + + + | Race | White | + + + | Ethnic Group | Unknown | + + + Author + + + | Author | [facility] | | | and [facility] | + + + | Organization | [facility] | | | and [place] | + + + | Address | Unknown | + + + | Phone | Unavailable | + + + Care Team Providers + +------+ + | Care Aerophysics Engineer Name | Role | Phone | + +------+ + PCP | Unavailable | + +------+ + Encounter Details +--------+ + + + + | Date | Type | Department | Care Team | Description | +--------+ + + + + | 09/18/ | [facility] | [facility] | Dhruv Horan | | | 2001 | Encounter | [facility] | [address] [phone] | | | | | AND DELIVERY [address] | (Fax) | | | | | [address] | | | | | | [place], [place] | | | | | | [address] | | | | | | [phone] | | | +--------+ + + + [...]
--- OUTSIDE RECORDS SUMMARY | ~2020-05-24 | XMS | Encounter Summary ---
Demographics + + + | Address | [address] | | | [place] [address] | + + + | Home Phone | | + + + | Preferred Language | Unknown | + + + | Marital Status | Unknown | + + + | Yazidi Affiliation | Unknown | + + + | Race | White | + + + | Ethnic Group | Unknown | + + + Author + + + | Author | [facility] | + + + | Organization | [facility] | | | and [place] | + + + | Address | Unknown | + + + | Phone | Unavailable | + + + Care Team Providers + +------+ + | Care Hat Lining Blocker Name | Role | Phone | + +------+ + PCP | Unavailable | + +------+ + Encounter Details +--------+ + + + + | Date | Type | Department | Care Team | Description | +--------+ + + + + | 06/16/ | [facility] | [facility] | Dhruv Horan | | | 2000 | Encounter | [facility] | Shlomo [phone] | | | | | AND DELIVERY [address] | (Fax) | | | | | [address] | | | | | | [place], [place] | | | | | | [address] | | | | | | [phone] | | | +--------+ + + + [...]
--- OUTSIDE RECORDS SUMMARY | ~2020-05-24 | XMS | Encounter Summary ---
Demographics + + + | Address | [address] | | | [place] [address] | + + + | Home Phone | | + + + | Preferred Language | Unknown | + + + | Marital Status | | + + + | Anabaptism Affiliation | CHR | + + + | Race | White | + + + | Ethnic Group | Not or | + + + Author + + + | Author | [facility] | + + + | Organization | [facility] | + + + | Address | Unknown | + + + | Phone | Unavailable | + + + Support + + +---------+ + | Name | Relationship | Address | Phone | + + +---------+ + | Hans Grissom | ECON | Unknown | | + + +---------+ + Care Team Providers + +------+ + | Care Facility Maintenance Technician Name | Role | Phone | [...] | [address] | [place], [place] | | | | | [place] Mailcode: CH8A | [address] | | | | | [facility] | | | | | | and Healing, | | | | | | | | | | | | [place], [place] | | | | | | [address] | | | | | | [phone] | | | +--------+ + + + [...]
--- OUTSIDE RECORDS SUMMARY | ~2020-05-24 | XMS | Encounter Summary ---
Demographics + + + | Address | [address] | | | [place] [address] | + + + | Home Phone | | + + + | Preferred Language | Unknown | + + + | Marital Status | | + + + | Evangelical Affiliation | CHR | + + + | Race | White | + + + | Ethnic Group | Not or | + + + Author + + + | Author | [facility] | + + + | Organization | [facility] | + + + | Address | Unknown | + + + | Phone | Unavailable | + + + Support + + +---------+ + | Name | Relationship | Address | Phone | + + +---------+ + | Hans Grissom | ECON | Unknown | | + + +---------+ + Care Team Providers + +------+ + | Care Vice President Of Marketing Name | Role | Phone | + +------+ + | Bebeto White MD | PCP | | + +------+ + Encounter Details +--------+ + + + + | Date | Type | Department | Care Team | Description | +--------+ + + + + | 10/22/ | Ancillary | Registration 3181 | Sonido Hicks, | | | 2004 | Registratio | [facility] | [address] | | | | n | [place] Mailcode: [id number] | [place], [place] | | | | | [place], [place] | [address] | | | | | [address] | | | | | | [phone] | | | +--------+ + + + [...] | + + + + + | [facility] | [address] | [place] [address] | | | LABORATORY | | | [...] | + + + + + | [facility] | [address] | [place] [address] | | | LABORATORY | | | [...] | + + + + + | [facility] | [address] | [place] [address] | | | LABORATORY | | | | + + + + + documented in this encounter Visit Diagnoses Not on filedocumented in this encounter"
--- OUTSIDE RECORDS SUMMARY | ~2020-05-24 | XMS | Encounter Summary ---
Demographics + + + | Address | [address] | | | [place] [address] | + + + | Home Phone | | + + + | Preferred Language | Unknown | + + + | Marital Status | | + + + | Holiness Affiliation | CHR | + + + [...] Team Providers + +------+ + | Care Auto Customize Painter Name | Role | Phone | + [...] | | gland | [address] | [address] [place], | | | | | Procedures | [place] [address] | [place] | | | | | [place] | Phone: | [address] | | | | | THYROIDECTOM | [phone] | Phone: | | | | | Y | Fax: | [phone] | | | | | | [phone] | Fax: | | | | | | | [phone] | +--------+--------+ + + + + Encounter [...] | | | | [address] | [place], [place] | | | | | Physician's | [address] | | | | | Pavilion, 2nd floor | [phone] | | | | | [place], [place] | | | | | | [address] | | | | | | [phone] | | | +--------+---------+ + + + [...] Have your referring physician (primary care or workers compensation attorney) check a TSH level. Elect ronically signed [...] was instructed to retu rn to her workers compensation attorney DR. White for follow-up. Hold levothyroxine for now. She is getting TFTs done early next week and seeing DR. White. Ashlegih Negrete M.D., F.A.C.S. 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
--- OUTSIDE RECORDS SUMMARY | ~2020-05-24 | XMS | Encounter Summary ---
Demographics + + + | Address | [address] | | | [place] [address] | + + + | Home Phone | | + + + | Preferred Language | Unknown | + + + | Marital Status | | + + + | Bahai Affiliation | CHR | + + + | Race | White | + + + | Ethnic Group | Not or | + + + Author + + + | Author | [facility] | + + + | Organization | [facility] | + + + | Address | Unknown | + + + | Phone | Unavailable | + + + Support + + +---------+ + | Name | Relationship | Address | Phone | + + +---------+ + | Hans Grissom | ECON | Unknown | | + + +---------+ + Care Team Providers + +------+ + | Care School Age Teacher Name | Role | Phone | + [...] | | | | [address] | [place], [place] | | | | | Physician's | [address] | | | | | Pavilion, 2nd floor | [phone] | | | | | [place], [place] | | | | | | [address] | | | | | | [phone] | | | +--------+ + + + [...]
--- OUTSIDE RECORDS SUMMARY | ~2020-05-24 | XMS | Clinical Summary ---
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
[~2020-05-24 07:43] MED LIST changes: +DIFLUCAN150 MG PO; +DOXYCYCLINE HY100 MG PO; +MULTIVITAMIN1 EACH PO; +TYLOPHEN500 MG PO
[2020-05-24] MEDS ORDERED: HYDROXYZINE HCL25 MG PO (08:41)
[2020-05-24] MEDS ORDERED: ATIVAN1 MG PO (08:41)
== END 2020-05-24 09:32 | disposition home or self-care (01) ==
LOC: ED 07:43
DX: F41.0 Panic disorder [episodic paroxysmal anxiety] (principal); F41.1 Generalized anxiety disorder; E05.90 Thyrotoxicosis, unspecified without thyrotoxic crisis or storm; Z88.5 Allergy status to narcotic agent; Z79.899 Other long term (current) drug therapy
CPT/HCPCS: 99283

== ENCOUNTER 2021-02-19 00:35 | Emergency (ER) | payer OTHER ==
[~2021-02-19] VITALS: Ht 162.6 cm; Wt 79.7 kg
[~2021-02-19 00:35] MED LIST changes: +ATIVAN1 MG PO; +HYDROXYZINE HCL25 MG PO
--- OUTSIDE RECORDS SUMMARY | 2021-02-19 00:38 | XMS ---
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 E.DAshley VISIT COUNT (12 MO.) [address] T[address] 5 NOTE: Visits indicate total known visits. ED/C VISIT TRACKING (12 MO.) 02/19/2021 00:35 [facility] TYPE: Emergency COMPLAINT: - DENTAL PAIN 02/18/2021 22:48 [facility] [place] TYPE: Emergency COMPLAINT: - JAW INFECTION DIAGNOSES: - JAW INFECTION 07/03/2020 12:36 [facility] TYPE: Emergency DIAGNOSES: - Elevated blood-pressure reading, without diagnosis of hypertension - Suicidal - Suicidal ideations - Hypothyroidism, unspecified - Anxiety disorder, unspecified 06/17/2020 09:41 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
[2021-02-19] MEDS ORDERED: LEVOTHYROXINE125 MC1 PO (01:07)
[2021-02-19] MEDS ORDERED: CLINDAMYCIN HC300 MG PO (01:08)
[2021-02-19] MEDS ORDERED: HYDROCODON-ACE1 EA10 PO (01:09)
[2021-02-19] MEDS ORDERED: IBUPROFEN600 MG PO (01:10)
[2021-02-19] MEDS ORDERED: AMOX TR-K CLV1 EAC1 PO (01:10)
== END 2021-02-19 04:26 | disposition home or self-care (01) ==
LOC: ED 00:35
DX: K08.89 Other specified disorders of teeth and supporting structures (principal); Z88.5 Allergy status to narcotic agent; Z79.899 Other long term (current) drug therapy
CPT/HCPCS: 96374; 99282-25; J7030